=== PATIENT | male | born 1935 | race Caucasian/White ===

== ENCOUNTER → 2022-03-08 13:08 | Outpatient (CLI) | payer MEDICARE, SELFPAY ==
--- NOTE | 2022-03-08 13:16 | DI.CT.S_ITS ---
PROCEDURE: CT CERVICAL SPINE WO CON INDICATIONS: Spinal stenosis cervical and lumbar region TECHNIQUE: Noncontrast 3 mm thick sections acquired from the skull base to the T4 level. Sagittal and coronal reformats were then constructed. For radiation dose reduction, the following was used: automated exposure control, adjustment of mA and/or kV according to patient size. COMPARISON: None. FINDINGS: Image quality: Excellent. Bones: Vertebral body height is maintained. There is degenerative grade 1 anterior spondylolisthesis at C7-T1 and T1-T2. No evidence of vertebral fracture. Disc space narrowing and hypertrophic facet joints are noted throughout the exam particularly in the lower lumbar spine. Mild to moderate central stenosis noted C4-5 and C5-6 There is a healing fracture through the proximal left clavicle with reactive callus formation Soft tissues: Prevertebral soft tissues are normal in thickness. No paravertebral hematomas. No apical pneumothoraces. Pacer wires noted IMPRESSION: 1. Degenerative disc disease and arthropathy results in [id number] central stenosis C5-6 and C6-7 as well as grade 1 anterior spondylolisthesis C7-T1 and T1-2 Approved by: Romeo Zavala M.D. on 03/08/2022 at 17:25
--- NOTE | 2022-03-08 13:16 | DI.CT.S_ITS ---
PROCEDURE: CT LUMBAR SPINE WO CON INDICATIONS: Spinal stenosis cervical and lumbar region TECHNIQUE: Noncontrast 3 mm thick sections acquired from the T12 level to the sacrum. Sagittal and coronal reformats were constructed. For radiation dose reduction, the following was used: automated exposure control. COMPARISON: None. FINDINGS: Image quality: Excellent. Bones: Generalized decreased osseous mineralization present. There compression fractures at L1, L2, L3 and L4. L5 vertebral body height is maintained. Retropulsed fracture fragment at L1 is noted and results in moderate central stenosis. Appropriate alignment T12-L1: Disc space narrowing with circumferential disc bulge results in mild central stenosis. L1-L2: Disc space narrowing with disc bulge and hypertrophic facet joints results in mild central and severe bilateral foraminal stenosis L2-L3: Disc space narrowing with circumferential disc bulge and hypertrophic facet joints results in moderate central stenosis severe bilateral foraminal stenosis L3-L4: Disc space narrowing and circumferential disc bulge with ligamentum flavum laxity results in moderate central stenosis. Moderate right and severe left foraminal stenosis L4-L5: Disc space narrowing with hypertrophic facet joints and circumferential disc bulge results in severe central stenosis. Severe bilateral foraminal stenosis L5-S1: Disc space narrowing and circumferential disc bulge present. Mild central and mild bilateral foraminal stenosis Soft tissues: No retroperitoneal masses or hematomas. Visualized aorta is normal in caliber. IMPRESSION: Multilevel osteopenic compression fractures as above. Retropulsed fracture fragment at L1 results in moderate central stenosis. Multilevel degenerative disc disease and arthropathy results in varying degrees of central and foraminal stenosis including severe central and severe bilateral foraminal stenosis at L4-5 Approved by: Romeo Zavala M.D. on 03/08/2022 at 17:38
== END ==
PROVIDERS: Referring Provider Physical Medicine & Rehabilitation Pain Medicine; Visit Provider Physical Medicine & Rehabilitation Pain Medicine
DX: M48.02 Spinal stenosis, cervical region (principal); M50.322 Other cervical disc degeneration at C5-C6 level; M47.812 Spondylosis without myelopathy or radiculopathy, cervical region; M43.13 Spondylolisthesis, cervicothoracic region; M48.062 Spinal stenosis, lumbar region with neurogenic claudication; M51.36 Other intervertebral disc degeneration, lumbar region; M47.816 Spondylosis without myelopathy or radiculopathy, lumbar region; M84.68XA Pathological fracture in other disease, other site, initial encounter for fracture
CPT/HCPCS: 72125; 72131

== ENCOUNTER 2022-03-25 15:59 | Observation (INO) | payer MEDICARE, SELFPAY ==
[2022-03-25] VITALS (42 sets, daily range): BP systolic 105–153; BP diastolic 75–102; PULSE 84–143; RESP 10–23; TEMP 36.8; O2SAT 94–99; BMI 22.8
--- NOTE | 2022-03-25 16:28 | DI.RAD.S_ITS ---
PROCEDURE: XR CHEST 1V INDICATIONS: chest pain TECHNIQUE: One view of the chest was acquired. COMPARISON: None. FINDINGS: Surgical changes and devices: A pacer device is seen. Lungs and pleura: On this supine examination, no large pneumothorax or large pleural effusions are seen. No focal areas of lung consolidation are seen. Low lung volumes are noted. This causes a crowded appearance to the lung markings and limits evaluation. Mediastinum: Mediastinal contours appear normal. Heart size is normal. Bones and chest wall: Age-appropriate bony degenerative changes are seen. No suspicious bony lesions. Overlying soft tissues appear unremarkable. IMPRESSION: Limited portable chest examination, without a significant cardiopulmonary abnormality identified. Postoperative and degenerative changes are seen. Dictated by: Alber Connor M.D. on 03/25/2022 at 16:07 Approved by: Alber Connor M.D. on 03/25/2022 at 16:08
[2022-03-25] MEDS: ASPIRIN 81 MG CHEW TAB 324 MG PO (16:53)
[2022-03-25 16:55] LABS: Add Manual Diff / Slide Review NO; Basophils Absolute Auto 100 /uL (0-100); Basophils Percent Auto 1.3 % (0-2); Eosinophils Absolute Auto 200 /uL (0-450); Eosinophils Percent Auto 2.1 % (2-4); Hematocrit 45.9 % (41-53); Hemoglobin 15.6 g/dL (13.5-17.5); Lymphocytes Absolute Auto 2300 /uL (1100-4500); Mean Corpuscular HGB Conc 34.1 % (30-36); Mean Corpuscular Hemoglobin 33.9 PG (26-34); Mean Corpuscular Volume 99.4 fL (80-100); Monocytes Absolute Auto 1100 /uL (0-900); Neutrophils Absolute Auto 6500 /uL (1500-7000); Neutrophils Percent Auto 63.6 % (50-75); Platelet Count 218 X10^3/uL (150-400); Red Blood Cell Count 4.62 X10^6/uL (4.5-5.9); Red Cell Distribution Width 14.5 % (11.6-14.8); White Blood Cell Count 10.3 X10^3/uL (4.5-11.0)
[2022-03-25 17:05] LABS: INR 1.5 (0.9-1.3); Prothrombin Time 17.4 SECONDS (10.1-12.7)
--- NOTE | 2022-03-25 17:05 | ED_ITS ---
HPI - Arrhythmia/Palpitations <Jack Ram, DO - Last Filed: 03/26/22 07:51> General Chief Complaint: Arrhythmia/Palpitations Stated Complaint: Back pain Time Seen by Provider: 03/25/22 16:34 Source: patient Mode of arrival: Family Vehicle History of Present Illness HPI narrative: 86-year-old male slightly poor historian with history of AFib on Xarelto for many years, pacemaker placement for sick sinus syndrome, history of ventricular tachycardia presents for evaluation episodes of shortness of breath and fatigue but primarily due to severe midline low back pain. 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 He denies any numbness, tingling or weakness, denies any loss of control of bowel or bladder. He states he has significant pain that is worse with range of motion and improves with rest. He denies any chest pain but does state that he is frequently short of breath but admits that the majority of his day is consume with severe pain Related Data Home Medications Medication Instructions Recorded Confirmed bimatoprost 0.01 % eye drops 1 drp ophthalmic (eye) DAILY 03/25/22 03/25/22 (Evert) bupropion HCl 150 mg tablet,12 hr 150 mg PO BID 03/25/22 03/25/22 sustained-release diltiazem HCl 240 mg 240 mg PO DAILY 03/25/22 03/25/22 capsule,extended release 24 hr dorzolamide 22.3 mg-timolol 6.8 1 drp ophthalmic (eye) DAILY 03/25/22 03/25/22 mg/mL eye drops finasteride 5 mg tablet 5 mg PO DAILY 03/25/22 03/25/22 omeprazole 20 mg capsule,delayed 20 mg PO DAILY 03/25/22 03/25/22 release rivaroxaban 20 mg tablet (Xarelto) 20 mg PO QPM 03/25/22 03/25/22 tamsulosin 0.4 mg capsule 0.4 mg PO BEDTIME 03/25/22 03/25/22 triamcinolone acetonide 0.1 % 1 applic topical DAILY PRN Dry Skin 03/25/22 03/25/22 topical ointment vitamin B complex (B 1 tab PO DAILY 03/25/22 03/25/22 Complex-Vitamin B12 tablet) Allergies Allergy/AdvReac Type Severity Reaction Status Date / Time No Known Drug Allergies Allergy Verified 03/25/22 21:16 Review of Systems <Jack Ram DO - Last Filed: 03/26/22 07:51> Review of Systems Narrative: GENERAL: Denies chills, fatigue, malaise, fever, sweats. HEENT: Denies sinus pain, ear pain, sore throat, difficulty swallowing, dizziness. RESPIRATORY: See HPI CARDIOVASCULAR: See HPI GASTROINTESTINAL: Denies nausea, vomiting, abdominal pain, diarrhea, constipation, melena. : Denies dysuria, frequency, incontinence, hematuria, urinary retention. MUSCULOSKELETAL: See HPI SKIN: Denies rash, skin lesions, or other NEUROLOGIC: See HPI PSYCHIATRIC: No concerning psychosocial issues. 12 point review of systems is negative except for those stated above Patient History <Jack Ram DO - Last Filed: 03/26/22 07:51> Medical History (Updated 03/26/22 @ 04:00 by MP Madrigal) BPH (benign prostatic hyperplasia) Chronic anticoagulation Osteoporosis Surgical History (Updated 03/26/22 @ 04:00 by MP Madrigal) History of permanent cardiac pacemaker placement Family History Mother Cancer Father No problems noted. Social History household members: none Smoking Status: Never smoker alcohol intake: current Smoking Status: Never smoker alcohol intake frequency: holidays/special occasions only Exam <DO Tanner Coburn Last Filed: 03/26/22 07:51> Narrative Exam Narrative: GENERAL: [86] year old patient appears stated age. Well-developed patient, in obvious distress. Complaining of low back pain HEAD: Atraumatic. Normocephalic. EYES: Pupils equal round and reactive. Extraocular motions intact. No scleral icterus. No injection or drainage. ENT: Nose without bleeding, purulent drainage. Throat without erythema, tonsillar hypertrophy or exudate. Airway patent. NECK: Trachea midline. Non tender CARDIOVASCULAR: Tachycardic and irregular rhythm without murmurs, gallops, or rubs. RESPIRATORY: Clear to auscultation. Breath sounds equal bilaterally. No wheezes, rales, or rhonchi. GASTROINTESTINAL: Abdomen soft, non-tender, nondistended. EXTREMITIES: No edema or joint tenderness. BACK: Severe midline, tenderness significantly worse with motion NEURO: AOx3. SKIN: No rash or erythema of visible areas Initial Vital Signs Initial Vital Signs: Vital Signs Temperature 98.2 F 03/25/22 16:14 Pulse Rate 135 H 03/25/22 16:14 Respiratory Rate 19 03/25/22 16:14 Blood Pressure 143/81 H 03/25/22 16:14 Pulse Oximetry 97 03/25/22 16:14 Oxygen Delivery Method 03/25/22 16:14 <Anjelica Mustafa MD - Last Filed: 03/25/22 21:17> Initial Vital Signs Initial Vital Signs: Vital Signs Temperature 98.2 F 03/25/22 16:14 Pulse Rate 135 H 03/25/22 16:14 Respiratory Rate 19 03/25/22 16:14 Blood Pressure 143/81 H 03/25/22 16:14 Pulse Oximetry 97 03/25/22 16:14 Oxygen Delivery Method 03/25/22 16:14 Procedures <Jack Ram DO - Last Filed: 03/26/22 07:51> Cardioversion Consent Signed: Yes Indication: rapid atrial fib Stability: Stable Number of attempts (shocks): 1 Joules used: 120 Cardiac rhythm post-cardioversion: NSR Procedural Sedation Consent signed: Yes Time out performed: Yes Indication: cardioversion ASA Class: III Mallampati Airway Classification: Class II Preparation: velvet weaver applied, pulse oximeter, capnometry used, supplemental O2 applied, suction/airway equipment at bedside and IV secured IV Propofol dose (mg): 40 Intraservice time/total sedation time (min): 10 ED Sedation Level: Moderate (Concious) Patient Tolerated Procedure: Well Complications: none Course <Jack Ram DO - Last Filed: 03/26/22 07:51> Orders Ordered: Acetaminophen (Acetaminophen 325 Mg Tablet) 650 mg PO Q6H PRN PRN Reason: Fever/Mild Pain (1-3) Bupropion HCl (Bupropion Sr 150 Mg Tab) 150 mg PO BID HENRY Calcium Carbonate (Calcium Carbonate 500 Mg Tab) 1,000 mg PO Q4HR PRN PRN Reason: Dyspepsia Dextrose (Dextrose 50 % In Water 25 Gm/50 Ml Syringe) 25 gm IV PRN PRN PRN Reason: Hypoglycemia Diltiazem HCl (Diltiazem Cd 240 Mg Cap) 240 mg PO DAILY HENRY Finasteride (Finasteride 5 Mg Tablet) 5 mg PO DAILY HENRY Hydromorphone HCl (Hydromorphone 0.5 Mg Inj) 0.5 mg IV Q4H PRN PRN Reason: Pain, Moderate (4-6) Naloxone HCl (Naloxone 0.4 Mg/Ml Vial) 0.2 mg IV Q2MIN PRN PRN Reason: Opiate Reversal Ondansetron HCl (Ondansetron 4 Mg/2 Ml Inj) 4 mg IV Q8HR PRN PRN Reason: Nausea And Vomiting Oxycodone HCl (Oxycodone Ir 10 Mg Tablet) 10 mg PO Q3H PRN PRN Reason: Pain, Severe (7-10) Sennosides (Sennosides 8.6 Mg Tablet) 17.2 mg PO BEDTIME [facility] Last Admin: 03/25/22 23:25 Dose: 17.2 mg Documented By: [facility] Discontinued Medications Aspirin (Aspirin 81 Mg Chew Tab) 324 mg PO NOW ONE Stop: 03/25/22 16:29 Last Admin: 03/25/22 16:53 Dose: 324 mg Documented By: RL Hydromorphone HCl (Hydromorphone 0.5 Mg Inj) 0.5 mg IV NOW ONE Stop: 03/25/22 20:13 Last Admin: 03/25/22 21:19 Dose: 0.5 mg Documented By: AT Amiodarone HCl/Dextrose (Nexterone) 150 mg in 100 mls @ 600 mls/hr IV NOW ONE; Protocol Stop: 03/25/22 18:31 Last Admin: 03/25/22 21:58 Dose: Not Given Documented By: AT Oxycodone/Acetaminophen (Oxycodone/Acetaminophen 5/325 Tablet) 2 tab PO NOW ONE Stop: 03/25/22 21:10 Last Admin: 03/25/22 21:59 Dose: 2 tab Documented By: AT Potassium Chloride (Potassium Chloride 20 Meq Tab) 40 meq PO NOW ONE Stop: 03/26/22 04:23 Last Admin: 03/26/22 04:35 Dose: 40 meq Documented By: DAVID Propofol (Propofol 200 Mg/20 Ml Vial) 70 mg 1 mg/kg (70 mg) IV NOW ONE Stop: 03/25/22 17:28 Last Admin: 03/25/22 17:42 Dose: 40 mg Documented By: RL Reevaluation(s) Reevaluation #1: Patient converted as noted above, however 2 episodes of nonsustained V-tach in the aftermath measuring 8 and 10 beats a piece, patient did not have any palpitations, chest pain or shortness of breath this. Consultations Consultation #1: discussed with Dr. Simon (lead front desk agent Cardio), no indication for amio at this time, consult with Cardio Vital Signs Vital signs: Vital Signs - 8 hr 03/25/22 16:14 03/25/22 16:51 03/25/22 16:52 Temperature 98.2 F Pulse Rate 135 H 130 H Respiratory Rate 19 22 Blood Pressure 143/81 H 128/82 Pulse Oximetry 97 97 Oxygen Delivery Method Room Air 03/25/22 16:52 03/25/22 17:00 03/25/22 17:00 Temperature Pulse Rate 136 H 131 H Respiratory Rate 15 16 Blood Pressure 125/90 Pulse Oximetry 97 97 Oxygen Delivery Method 03/25/22 17:16 03/25/22 17:16 03/25/22 17:20 Temperature Pulse Rate 133 H Respiratory Rate 11 L Blood Pressure 131/85 153/82 H Pulse Oximetry 96 Oxygen Delivery Method 03/25/22 17:20 03/25/22 17:30 03/25/22 17:31 Temperature Pulse Rate 138 H 140 H Respiratory Rate 20 13 Blood Pressure 134/102 H Pulse Oximetry 97 97 Oxygen Delivery Method 03/25/22 17:31 03/25/22 17:35 03/25/22 17:35 Temperature Pulse Rate 143 H 136 H Respiratory Rate 13 10 L Blood Pressure 119/94 H Pulse Oximetry 96 95 Oxygen Delivery Method 03/25/22 17:40 03/25/22 17:40 03/25/22 17:20 Temperature Pulse Rate 135 H 118 H Respiratory Rate 18 12 Blood Pressure 105/80 Pulse Oximetry 96 Oxygen Delivery Method 03/25/22 17:45 03/25/22 17:45 03/25/22 17:51 Temperature Pulse Rate 86 Respiratory Rate 18 Blood Pressure 129/84 117/83 Pulse Oximetry 94 Oxygen Delivery Method 03/25/22 17:51 03/25/22 17:55 03/25/22 17:55 Temperature Pulse Rate 90 85 Respiratory Rate 23 15 Blood Pressure 120/82 Pulse Oximetry 95 95 Oxygen Delivery Method 03/25/22 18:00 03/25/22 18:00 03/25/22 18:05 Temperature Pulse Rate 87 84 Respiratory Rate 15 13 Blood Pressure 131/75 Pulse Oximetry 96 95 Oxygen Delivery Method 03/25/22 18:05 03/25/22 18:10 03/25/22 18:10 Temperature Pulse Rate 85 Respiratory Rate 14 Blood Pressure 123/79 121/83 Pulse Oximetry 95 Oxygen Delivery Method 03/25/22 18:15 03/25/22 18:15 03/25/22 18:20 Temperature Pulse Rate 86 Respiratory Rate 15 Blood Pressure 122/83 128/79 Pulse Oximetry 95 Oxygen Delivery Method 03/25/22 18:20 03/25/22 18:25 03/25/22 18:25 Temperature Pulse Rate 85 86 Respiratory Rate 16 17 Blood Pressure 118/81 Pulse Oximetry 95 96 Oxygen Delivery Method 03/25/22 18:30 03/25/22 18:30 03/25/22 19:00 Temperature Pulse Rate 87 89 Respiratory Rate 14 14 Blood Pressure 134/87 Pulse Oximetry 96 97 Oxygen Delivery Method 03/25/22 19:07 03/25/22 19:07 03/25/22 19:10 Temperature Pulse Rate 90 Respiratory Rate 14 Blood Pressure 121/81 135/82 Pulse Oximetry 98 Oxygen Delivery Method 03/25/22 19:10 03/25/22 19:15 03/25/22 19:15 Temperature Pulse Rate 88 89 Respiratory Rate 14 21 Blood Pressure 148/93 H Pulse Oximetry 98 99 Oxygen Delivery Method 03/25/22 19:21 03/25/22 19:21 03/25/22 19:25 Temperature Pulse Rate 91 H Respiratory Rate 17 Blood Pressure 141/93 H 137/96 H Pulse Oximetry 98 Oxygen Delivery Method 03/25/22 19:25 03/25/22 19:30 03/25/22 19:30 Temperature Pulse Rate 90 91 H Respiratory Rate 21 11 L Blood Pressure 140/92 H Pulse Oximetry 98 98 Oxygen Delivery Method 03/25/22 19:35 03/25/22 19:35 03/25/22 19:40 Temperature Pulse Rate 91 H 103 H Respiratory Rate 15 22 Blood Pressure 136/92 H Pulse Oximetry 98 98 Oxygen Delivery Method 03/25/22 19:40 03/25/22 19:45 03/25/22 19:45 Temperature Pulse Rate 92 H Respiratory Rate 17 Blood Pressure 150/97 H 152/86 H Pulse Oximetry 99 Oxygen Delivery Method 03/25/22 19:50 03/25/22 19:50 03/25/22 19:55 Temperature Pulse Rate 90 Respiratory Rate 16 Blood Pressure 150/90 H 151/97 H Pulse Oximetry 99 Oxygen Delivery Method 03/25/22 19:55 03/25/22 20:00 03/25/22 20:00 Temperature Pulse Rate 92 H 90 Respiratory Rate 11 L 17 Blood Pressure 148/92 H Pulse Oximetry 98 99 Oxygen Delivery Method 03/25/22 20:06 03/25/22 20:06 03/25/22 20:10 Temperature Pulse Rate 93 H Respiratory Rate 20 Blood Pressure 125/81 127/75 Pulse Oximetry 99 Oxygen Delivery Method 03/25/22 20:10 03/25/22 20:15 03/25/22 20:15 Temperature Pulse Rate 92 H 90 Respiratory Rate 15 15 Blood Pressure 134/82 Pulse Oximetry 99 98 Oxygen Delivery Method 03/25/22 20:20 03/25/22 20:20 03/25/22 20:30 Temperature Pulse Rate 91 H Respiratory Rate 20 Blood Pressure 132/84 136/88 Pulse Oximetry 98 Oxygen Delivery Method 03/25/22 20:30 03/25/22 20:45 03/25/22 20:45 Temperature Pulse Rate 91 H 90 Respiratory Rate 17 15 Blood Pressure 140/80 Pulse Oximetry 98 98 Oxygen Delivery Method <Anjelica Mustafa MD - Last Filed: 03/25/22 21:17> Orders Ordered: Acetaminophen (Acetaminophen 325 Mg Tablet) 650 mg PO Q6H PRN PRN Reason: Fever/Mild Pain (1-3) Bupropion HCl (Bupropion Sr 150 Mg Tab) 150 mg PO BID HENRY Calcium Carbonate (Calcium Carbonate 500 Mg Tab) 1,000 mg PO Q4HR PRN PRN Reason: Dyspepsia Dextrose (Dextrose 50 % In Water 25 Gm/50 Ml Syringe) 25 gm IV PRN PRN PRN Reason: Hypoglycemia Diltiazem HCl (Diltiazem Cd 240 Mg Cap) 240 mg PO DAILY HENRY Finasteride (Finasteride 5 Mg Tablet) 5 mg PO DAILY HENRY Hydromorphone HCl (Hydromorphone 0.5 Mg Inj) 0.5 mg IV Q4H PRN PRN Reason: Pain, Moderate (4-6) Naloxone HCl (Naloxone 0.4 Mg/Ml Vial) 0.2 mg IV Q2MIN PRN PRN Reason: Opiate Reversal Ondansetron HCl (Ondansetron 4 Mg/2 Ml Inj) 4 mg IV Q8HR PRN PRN Reason: Nausea And Vomiting Oxycodone HCl (Oxycodone Ir 10 Mg Tablet) 10 mg PO Q3H PRN PRN Reason: Pain, Severe (7-10) Sennosides (Sennosides 8.6 Mg Tablet) 17.2 mg PO BEDTIME HENRY Last Admin: 03/25/22 23:25 Dose: 17.2 mg Documented By: [facility] Discontinued Medications Aspirin (Aspirin 81 Mg Chew Tab) 324 mg PO NOW ONE Stop: 03/25/22 16:29 Last Admin: 03/25/22 16:53 Dose: 324 mg Documented By: RL Hydromorphone HCl (Hydromorphone 0.5 Mg Inj) 0.5 mg IV NOW ONE Stop: 03/25/22 20:13 Last Admin: 03/25/22 21:19 Dose: 0.5 mg Documented By: AT Amiodarone HCl/Dextrose (Nexterone) 150 mg in 100 mls @ 600 mls/hr IV NOW ONE; Protocol Stop: 03/25/22 18:31 Last Admin: 03/25/22 21:58 Dose: Not Given Documented By: AT Oxycodone/Acetaminophen (Oxycodone/Acetaminophen 5/325 Tablet) 2 tab PO NOW ONE Stop: 03/25/22 21:10 Last Admin: 03/25/22 21:59 Dose: 2 tab Documented By: AT Potassium Chloride (Potassium Chloride 20 Meq Tab) 40 meq PO NOW ONE Stop: 03/26/22 04:23 Last Admin: 03/26/22 04:35 Dose: 40 meq Documented By: DAVID Propofol (Propofol 200 Mg/20 Ml Vial) 70 mg 1 mg/kg (70 mg) IV NOW ONE Stop: 03/25/22 17:28 Last Admin: 03/25/22 17:42 Dose: 40 mg Documented By: RL Vital Signs Vital signs: Vital Signs - 8 hr 03/25/22 16:14 03/25/22 16:51 03/25/22 16:52 Temperature 98.2 F Pulse Rate 135 H 130 H Respiratory Rate 19 22 Blood Pressure 143/81 H 128/82 Pulse Oximetry 97 97 Oxygen Delivery Method Room Air 03/25/22 16:52 03/25/22 17:00 03/25/22 17:00 Temperature Pulse Rate 136 H 131 H Respiratory Rate 15 16 Blood Pressure 125/90 Pulse Oximetry 97 97 Oxygen Delivery Method 03/25/22 17:16 03/25/22 17:16 03/25/22 17:20 Temperature Pulse Rate 133 H Respiratory Rate 11 L Blood Pressure 131/85 153/82 H Pulse Oximetry 96 Oxygen Delivery Method 03/25/22 17:20 03/25/22 17:30 03/25/22 17:31 Temperature Pulse Rate 138 H 140 H Respiratory Rate 20 13 Blood Pressure 134/102 H Pulse Oximetry 97 97 Oxygen Delivery Method 03/25/22 17:31 03/25/22 17:35 03/25/22 17:35 Temperature Pulse Rate 143 H 136 H Respiratory Rate 13 10 L Blood Pressure 119/94 H Pulse Oximetry 96 95 Oxygen Delivery Method 03/25/22 17:40 03/25/22 17:40 03/25/22 17:20 Temperature Pulse Rate 135 H 118 H Respiratory Rate 18 12 Blood Pressure 105/80 Pulse Oximetry 96 Oxygen Delivery Method 03/25/22 17:45 03/25/22 17:45 03/25/22 17:51 Temperature Pulse Rate 86 Respiratory Rate 18 Blood Pressure 129/84 117/83 Pulse Oximetry 94 Oxygen Delivery Method 03/25/22 17:51 03/25/22 17:55 03/25/22 17:55 Temperature Pulse Rate 90 85 Respiratory Rate 23 15 Blood Pressure 120/82 Pulse Oximetry 95 95 Oxygen Delivery Method 03/25/22 18:00 03/25/22 18:00 03/25/22 18:05 Temperature Pulse Rate 87 84 Respiratory Rate 15 13 Blood Pressure 131/75 Pulse Oximetry 96 95 Oxygen Delivery Method 03/25/22 18:05 03/25/22 18:10 03/25/22 18:10 Temperature Pulse Rate 85 Respiratory Rate 14 Blood Pressure 123/79 121/83 Pulse Oximetry 95 Oxygen Delivery Method 03/25/22 18:15 03/25/22 18:15 03/25/22 18:20 Temperature Pulse Rate 86 Respiratory Rate 15 Blood Pressure 122/83 128/79 Pulse Oximetry 95 Oxygen Delivery Method 03/25/22 18:20 03/25/22 18:25 03/25/22 18:25 Temperature Pulse Rate 85 86 Respiratory Rate 16 17 Blood Pressure 118/81 Pulse Oximetry 95 96 Oxygen Delivery Method 03/25/22 18:30 03/25/22 18:30 03/25/22 19:00 Temperature Pulse Rate 87 89 Respiratory Rate 14 14 Blood Pressure 134/87 Pulse Oximetry 96 97 Oxygen Delivery Method 03/25/22 19:07 03/25/22 19:07 03/25/22 19:10 Temperature Pulse Rate 90 Respiratory Rate 14 Blood Pressure 121/81 135/82 Pulse Oximetry 98 Oxygen Delivery Method 03/25/22 19:10 03/25/22 19:15 03/25/22 19:15 Temperature Pulse Rate 88 89 Respiratory Rate 14 21 Blood Pressure 148/93 H Pulse Oximetry 98 99 Oxygen Delivery Method 03/25/22 19:21 03/25/22 19:21 03/25/22 19:25 Temperature Pulse Rate 91 H Respiratory Rate 17 Blood Pressure 141/93 H 137/96 H Pulse Oximetry 98 Oxygen Delivery Method 03/25/22 19:25 03/25/22 19:30 03/25/22 19:30 Temperature Pulse Rate 90 91 H Respiratory Rate 21 11 L Blood Pressure 140/92 H Pulse Oximetry 98 98 Oxygen Delivery Method 03/25/22 19:35 03/25/22 19:35 03/25/22 19:40 Temperature Pulse Rate 91 H 103 H Respiratory Rate 15 22 Blood Pressure 136/92 H Pulse Oximetry 98 98 Oxygen Delivery Method 03/25/22 19:40 03/25/22 19:45 03/25/22 19:45 Temperature Pulse Rate 92 H Respiratory Rate 17 Blood Pressure 150/97 H 152/86 H Pulse Oximetry 99 Oxygen Delivery Method 03/25/22 19:50 03/25/22 19:50 03/25/22 19:55 Temperature Pulse Rate 90 Respiratory Rate 16 Blood Pressure 150/90 H 151/97 H Pulse Oximetry 99 Oxygen Delivery Method 03/25/22 19:55 03/25/22 20:00 03/25/22 20:00 Temperature Pulse Rate 92 H 90 Respiratory Rate 11 L 17 Blood Pressure 148/92 H Pulse Oximetry 98 99 Oxygen Delivery Method 03/25/22 20:06 03/25/22 20:06 03/25/22 20:10 Temperature Pulse Rate 93 H Respiratory Rate 20 Blood Pressure 125/81 127/75 Pulse Oximetry 99 Oxygen Delivery Method 03/25/22 20:10 03/25/22 20:15 03/25/22 20:15 Temperature Pulse Rate 92 H 90 Respiratory Rate 15 15 Blood Pressure 134/82 Pulse Oximetry 99 98 Oxygen Delivery Method 03/25/22 20:20 03/25/22 20:20 03/25/22 20:30 Temperature Pulse Rate 91 H Respiratory Rate 20 Blood Pressure 132/84 136/88 Pulse Oximetry 98 Oxygen Delivery Method 03/25/22 20:30 03/25/22 20:45 03/25/22 20:45 Temperature Pulse Rate 91 H 90 Respiratory Rate 17 15 Blood Pressure 140/80 Pulse Oximetry 98 98 Oxygen Delivery Method MDM - Arrhythmia/Palpitations <Jack Ram DO - Last Filed: 03/26/22 07:51> Lab Data Result diagrams: 03/26/22 03:45 03/26/22 03:45 Labs: Lab Results 03/25/22 03/25/22 03/25/22 Range/Units 16:40 16:40 16:40 WBC 10.3 (4.5-11.0) X10^3/uL RBC 4.62 (4.5-5.9) X10^6/uL Hgb 15.6 (13.5-17.5) g/dL Hct 45.9 (41-53) % MCV 99.4 (80-100) fL MCH 33.9 (26-34) PG MCHC 34.1 (30-36) % RDW 14.5 (11.6-14.8) % Plt Count 218 (150-400) X10^3/uL Neut % (Auto) 63.6 (50-75) % Lymph % (Auto) 22.0 L (25-40) % Waller % (Auto) 11.0 (3-14) % Eos % (Auto) 2.1 (2-4) % Baso % (Auto) 1.3 (0-2) % Neut # (Auto) 6500 (8274-3600) /uL Lymph # (Auto) 2300 (6880-3095) /uL Waller # (Auto) 1100 H (0-900) /uL Eos # (Auto) 200 (0-450) /uL Baso # (Auto) 100 (0-100) /uL PT 17.4 H (10.1-12.7) SECONDS INR 1.5 H (0.9-1.3) APTT 36 (26-36) SECONDS Sodium 139 (137-145) mmol/L Potassium 3.8 (3.4-5.1) mmol/L Chloride 106 (98-107) mmol/L Carbon Dioxide 23 (22-32) mmol/L BUN 9 (9-20) mg/dL Creatinine 0.80 (0.66-1.25) mg/dL Estimated GFR > 60 (>60) mL/min BUN/Creatinine Ratio 11.3 (6-22) Glucose 89 (80-110) mg/dL Hemoglobin A1c (4.0-6.0) % Lactate (0.7-2.1) mmol/L Calcium 9.0 (8.4-10.2) mg/dL Magnesium 1.9 (1.6-2.3) mg/dL Total Bilirubin 1.1 (0.2-1.3) mg/dL AST 32 (17-59) IU/L ALT 27 (<50) IU/L Alkaline Phosphatase 108 (38-126) U/L Total Creatine Kinase < 20 L (55-170) U/L CK-MB (CK-2) TNP CK-MB (CK-2) Rel Index TNP Troponin I < 0.012 (0.01-0.034) ng/mL NT-Pro-B Natriuret Pep (<450) pg/mL Total Protein 7.9 (6.3-8.2) g/dL Albumin 3.7 (3.5-5.0) g/dL Globulin 4.2 H (1.7-4.1) g/dL Albumin/Globulin Ratio 0.9 L (1.0-2.8) Lipase 169 (23-300) U/L TSH (0.47-4.68) uIU/mL Free T4 (0.78-2.19) ng/dL Ethyl Alcohol ( - 10) mg/dL SARS-CoV-2 (PCR) (Negative) 03/25/22 03/25/22 03/25/22 Range/Units 16:40 16:55 18:20 WBC (4.5-11.0) X10^3/uL RBC (4.5-5.9) X10^6/uL Hgb (13.5-17.5) g/dL Hct (41-53) % MCV (80-100) fL MCH (26-34) PG MCHC (30-36) % RDW (11.6-14.8) % Plt Count (150-400) X10^3/uL Neut % (Auto) (50-75) % Lymph % (Auto) (25-40) % Waller % (Auto) (3-14) % Eos % (Auto) (2-4) % Baso % (Auto) (0-2) % Neut # (Auto) (4889-1278) /uL Lymph # (Auto) (7352-4778) /uL Waller # (Auto) (0-900) /uL Eos # (Auto) (0-450) /uL Baso # (Auto) (0-100) /uL PT (10.1-12.7) SECONDS INR (0.9-1.3) APTT (26-36) SECONDS Sodium (137-145) mmol/L Potassium (3.4-5.1) mmol/L Chloride (98-107) mmol/L Carbon Dioxide (22-32) mmol/L BUN (9-20) mg/dL Creatinine (0.66-1.25) mg/dL Estimated GFR (>60) mL/min BUN/Creatinine Ratio (6-22) Glucose (80-110) mg/dL Hemoglobin A1c 5.1 (4.0-6.0) % Lactate (0.7-2.1) mmol/L Calcium (8.4-10.2) mg/dL Magnesium (1.6-2.3) mg/dL Total Bilirubin (0.2-1.3) mg/dL AST (17-59) IU/L ALT (<50) IU/L Alkaline Phosphatase (38-126) U/L Total Creatine Kinase (55-170) U/L CK-MB (CK-2) CK-MB (CK-2) Rel Index Troponin I (0.01-0.034) ng/mL NT-Pro-B Natriuret Pep (<450) pg/mL Total Protein (6.3-8.2) g/dL Albumin (3.5-5.0) g/dL Globulin (1.7-4.1) g/dL Albumin/Globulin Ratio (1.0-2.8) Lipase (23-300) U/L TSH (0.47-4.68) uIU/mL Free T4 (0.78-2.19) ng/dL Ethyl Alcohol < 10 ( - 10) mg/dL SARS-CoV-2 (PCR) Negative (Negative) 03/25/22 03/25/22 03/25/22 Range/Units 18:20 18:20 18:20 WBC (4.5-11.0) X10^3/uL RBC (4.5-5.9) X10^6/uL Hgb (13.5-17.5) g/dL Hct (41-53) % MCV (80-100) fL MCH (26-34) PG MCHC (30-36) % RDW (11.6-14.8) % Plt Count (150-400) X10^3/uL Neut % (Auto) (50-75) % Lymph % (Auto) (25-40) % Waller % (Auto) (3-14) % Eos % (Auto) (2-4) % Baso % (Auto) (0-2) % Neut # (Auto) (1402-0171) /uL Lymph # (Auto) (7840-1748) /uL Waller # (Auto) (0-900) /uL Eos # (Auto) (0-450) /uL Baso # (Auto) (0-100) /uL PT (10.1-12.7) SECONDS INR (0.9-1.3) APTT (26-36) SECONDS Sodium (137-145) mmol/L Potassium (3.4-5.1) mmol/L Chloride (98-107) mmol/L Carbon Dioxide (22-32) mmol/L BUN (9-20) mg/dL Creatinine (0.66-1.25) mg/dL Estimated GFR (>60) mL/min BUN/Creatinine Ratio (6-22) Glucose (80-110) mg/dL Hemoglobin A1c (4.0-6.0) % Lactate 0.9 (0.7-2.1) mmol/L Calcium (8.4-10.2) mg/dL Magnesium (1.6-2.3) mg/dL Total Bilirubin (0.2-1.3) mg/dL AST (17-59) IU/L ALT (<50) IU/L Alkaline Phosphatase (38-126) U/L Total Creatine Kinase (55-170) U/L CK-MB (CK-2) CK-MB (CK-2) Rel Index Troponin I (0.01-0.034) ng/mL NT-Pro-B Natriuret Pep 3110 H (<450) pg/mL Total Protein (6.3-8.2) g/dL Albumin (3.5-5.0) g/dL Globulin (1.7-4.1) g/dL Albumin/Globulin Ratio (1.0-2.8) Lipase (23-300) U/L TSH 8.95 H (0.47-4.68) uIU/mL Free T4 1.09 (0.78-2.19) ng/dL Ethyl Alcohol ( - 10) mg/dL SARS-CoV-2 (PCR) (Negative) <Anjelica Mustafa MD - Last Filed: 03/25/22 21:17> Lab Data Labs: Lab Results 03/25/22 03/25/22 03/25/22 Range/Units 16:40 16:40 16:40 WBC 10.3 (4.5-11.0) X10^3/uL RBC 4.62 (4.5-5.9) X10^6/uL Hgb 15.6 (13.5-17.5) g/dL Hct 45.9 (41-53) % MCV 99.4 (80-100) fL MCH 33.9 (26-34) PG MCHC 34.1 (30-36) % RDW 14.5 (11.6-14.8) % Plt Count 218 (150-400) X10^3/uL Neut % (Auto) 63.6 (50-75) % Lymph % (Auto) 22.0 L (25-40) % Waller % (Auto) 11.0 (3-14) % Eos % (Auto) 2.1 (2-4) % Baso % (Auto) 1.3 (0-2) % Neut # (Auto) 6500 (4254-2814) /uL Lymph # (Auto) 2300 (1320-3135) /uL Waller # (Auto) 1100 H (0-900) /uL Eos # (Auto) 200 (0-450) /uL Baso # (Auto) 100 (0-100) /uL PT 17.4 H (10.1-12.7) SECONDS INR 1.5 H (0.9-1.3) APTT 36 (26-36) SECONDS Sodium 139 (137-145) mmol/L Potassium 3.8 (3.4-5.1) mmol/L Chloride 106 (98-107) mmol/L Carbon Dioxide 23 (22-32) mmol/L BUN 9 (9-20) mg/dL Creatinine 0.80 (0.66-1.25) mg/dL Estimated GFR > 60 (>60) mL/min BUN/Creatinine Ratio 11.3 (6-22) Glucose 89 (80-110) mg/dL Hemoglobin A1c (4.0-6.0) % Lactate (0.7-2.1) mmol/L Calcium 9.0 (8.4-10.2) mg/dL Magnesium 1.9 (1.6-2.3) mg/dL Total Bilirubin 1.1 (0.2-1.3) mg/dL AST 32 (17-59) IU/L ALT 27 (<50) IU/L Alkaline Phosphatase 108 (38-126) U/L Total Creatine Kinase < 20 L (55-170) U/L CK-MB (CK-2) TNP CK-MB (CK-2) Rel Index TNP Troponin I < 0.012 (0.01-0.034) ng/mL NT-Pro-B Natriuret Pep (<450) pg/mL Total Protein 7.9 (6.3-8.2) g/dL Albumin 3.7 (3.5-5.0) g/dL Globulin 4.2 H (1.7-4.1) g/dL Albumin/Globulin Ratio 0.9 L (1.0-2.8) Lipase 169 (23-300) U/L TSH (0.47-4.68) uIU/mL Free T4 (0.78-2.19) ng/dL Ethyl Alcohol ( - 10) mg/dL SARS-CoV-2 (PCR) (Negative) 03/25/22 03/25/22 03/25/22 Range/Units 16:40 16:55 18:20 WBC (4.5-11.0) X10^3/uL RBC (4.5-5.9) X10^6/uL Hgb (13.5-17.5) g/dL Hct (41-53) % MCV (80-100) fL MCH (26-34) PG MCHC (30-36) % RDW (11.6-14.8) % Plt Count (150-400) X10^3/uL Neut % (Auto) (50-75) % Lymph % (Auto) (25-40) % Waller % (Auto) (3-14) % Eos % (Auto) (2-4) % Baso % (Auto) (0-2) % Neut # (Auto) (7345-9912) /uL Lymph # (Auto) (2163-7262) /uL Waller # (Auto) (0-900) /uL Eos # (Auto) (0-450) /uL Baso # (Auto) (0-100) /uL PT (10.1-12.7) SECONDS INR (0.9-1.3) APTT (26-36) SECONDS Sodium (137-145) mmol/L Potassium (3.4-5.1) mmol/L Chloride (98-107) mmol/L Carbon Dioxide (22-32) mmol/L BUN (9-20) mg/dL Creatinine (0.66-1.25) mg/dL Estimated GFR (>60) mL/min BUN/Creatinine Ratio (6-22) Glucose (80-110) mg/dL Hemoglobin A1c 5.1 (4.0-6.0) % Lactate (0.7-2.1) mmol/L Calcium (8.4-10.2) mg/dL Magnesium (1.6-2.3) mg/dL Total Bilirubin (0.2-1.3) mg/dL AST (17-59) IU/L ALT (<50) IU/L Alkaline Phosphatase (38-126) U/L Total Creatine Kinase (55-170) U/L CK-MB (CK-2) CK-MB (CK-2) Rel Index Troponin I (0.01-0.034) ng/mL NT-Pro-B Natriuret Pep (<450) pg/mL Total Protein (6.3-8.2) g/dL Albumin (3.5-5.0) g/dL Globulin (1.7-4.1) g/dL Albumin/Globulin Ratio (1.0-2.8) Lipase (23-300) U/L TSH (0.47-4.68) uIU/mL Free T4 (0.78-2.19) ng/dL Ethyl Alcohol < 10 ( - 10) mg/dL SARS-CoV-2 (PCR) Negative (Negative) 03/25/22 03/25/22 03/25/22 Range/Units 18:20 18:20 18:20 WBC (4.5-11.0) X10^3/uL RBC (4.5-5.9) X10^6/uL Hgb (13.5-17.5) g/dL Hct (41-53) % MCV (80-100) fL MCH (26-34) PG MCHC (30-36) % RDW (11.6-14.8) % Plt Count (150-400) X10^3/uL Neut % (Auto) (50-75) % Lymph % (Auto) (25-40) % Waller % (Auto) (3-14) % Eos % (Auto) (2-4) % Baso % (Auto) (0-2) % Neut # (Auto) (7622-3637) /uL Lymph # (Auto) (5286-8387) /uL Waller # (Auto) (0-900) /uL Eos # (Auto) (0-450) /uL Baso # (Auto) (0-100) /uL PT (10.1-12.7) SECONDS INR (0.9-1.3) APTT (26-36) SECONDS Sodium (137-145) mmol/L Potassium (3.4-5.1) mmol/L Chloride (98-107) mmol/L Carbon Dioxide (22-32) mmol/L BUN (9-20) mg/dL Creatinine (0.66-1.25) mg/dL Estimated GFR (>60) mL/min BUN/Creatinine Ratio (6-22) Glucose (80-110) mg/dL Hemoglobin A1c (4.0-6.0) % Lactate 0.9 (0.7-2.1) mmol/L Calcium (8.4-10.2) mg/dL Magnesium (1.6-2.3) mg/dL Total Bilirubin (0.2-1.3) mg/dL AST (17-59) IU/L ALT (<50) IU/L Alkaline Phosphatase (38-126) U/L Total Creatine Kinase (55-170) U/L CK-MB (CK-2) CK-MB (CK-2) Rel Index Troponin I (0.01-0.034) ng/mL NT-Pro-B Natriuret Pep 3110 H (<450) pg/mL Total Protein (6.3-8.2) g/dL Albumin (3.5-5.0) g/dL Globulin (1.7-4.1) g/dL Albumin/Globulin Ratio (1.0-2.8) Lipase (23-300) U/L TSH 8.95 H (0.47-4.68) uIU/mL Free T4 1.09 (0.78-2.19) ng/dL Ethyl Alcohol ( - 10) mg/dL SARS-CoV-2 (PCR) (Negative) ECG Data Interpretation: 1635 Atrial fibrillation with rapid ventricular response at 136 Post cardioversion sinus rhythm with sinus arrhythmia at a rate of [address] T wave changes Occasional tele episodes of wide complex beats that are paste and asymptomatic Treatment and disposition Social Determinants of Health that impact treatment or disposition: age, inability to function at home due to pain. Has a friend, Dev Connors [phone] who has been helping. His son lives in [place] and is also involved Code Status and discussions:: Full code MDM Narrative Medical decision making narrative: CC: Severe back pain Complicating co-morbidities: Sick sinus syndrome, age, multiple falls, multiple vertebral compression fractures, anticoagulation . Corroborating data: Data collected from: patient, caregiver Dev. Medical records reviewed: Breif review of records. No additional medical records are available Differential considered: Recurrent fall with new compression fractures, pain significant enough that is causing ileus and pain significant enough that it is exacerbating his cardiac issues and causing increased episodes of paroxysmal atrial fibrillation. Additional trauma not previously identified Exam documented above, pertinent findings include: Severe lower thoracic and lumbar back pain with pain significant enough he is unable to roll over. Atrial fibrillation on arrival Lab Test results independently reviewed as above. Pertinent findings: CBC is unremarkable Chemistries are reassuring COVID serology is negative Independently reviewed EKG as above Imaging studies independently reviewed: Chest x-ray shows no acute changes CT of the chest abdomen and pelvis suggests new T11 compression fracture with multiple compression fractures and disc compression with spinal stenosis throughout the lumbar spine. This is reviewed in real-time with Dr. Celeste Bassett, orthopedic surgeon who also feels that the T11 fracture is new. Consultations: Orthopedics, Cardiology, pacemaker interrogation, Treatments: Cardioversion, pain control, hospital admission Re-evaluations:845pm patient is re-evaluated in independently examined by me. Discussion: This 86-year-old gentleman with 2 falls in February initial care at [facility] follow-up with orthopedic spine surgeon and follow-up rescheduled presents with severe pain such that I believe he has put himself into atrial fibrillation and is developing an ileus. CT scan suggest new T11 compression fracture which likely prompted the ER visit today with increase in the overall severity of pain. Patient and his caregiver confirm that he has not had any additional falls since prior imaging. In reviewing films with Dr. Bassett, she is not feel that urgent transfer or orthopedic/Neurosurgery were required. She did agree that hospitalization for pain control, physical therapy would be appropriate. Will review with the hospitalist service to admit the patient. Given his paroxysmal AFib that has been cardioverted, Cardiology did not recommend amiodarone but did recommend continued anticoagulation. Pacemaker has been interrogated and according to pacemaker reps today was ?good? with no notice of rapid rhythm nor the electrical cardioversion that occurred. They do note that he had 6 minutes of atrial fibrillation documented yesterday. There is no evidence of cauda equina syndrome. The lumbar compression fractures and severe spinal stenosis does not appear worse today in comparison to CT scan from March 08 Diagnosis: 1. New T11 compression fracture: 2 falls in february with orthopedic complications including significant compression fractures with spinal stenosis in the lumbar spine. No additional details regarding the falls are available. Initially seen at [facility] and follow-up outpatient with with lumbar and cervical spine CTs ordered. Patient said he was given injections that were somewhat helpful and has a follow-up appointment on the . This problem is new, uncertain prognosis with life-threatening pot ential 2. Coronary artery disease with sick sinus syndrome, pacemaker in place currently anticoagulated on Xarelto. Presented with atrial fibrillation with rapid ventricular response was treated with single shock and converted back to sinus rhythm with episodes of paced rhythm intermittently. Problem is exacerbation of chronic issue with uncertain prognosis, life-threatening potential 3. Ileus: Presumably secondary to severe pain. Uncertain prognosis Disposition: With shared decision-making we opted to keep him in the hospital for pain control, hospitalist evaluation regarding his multiple medical comorbidities an orthopedic consultation with Physical therapy evaluation tomorrow <Anjelica Mustafa MD - Last Filed: 03/25/22 21:17> Critical Care Time Critical Care Time: Yes Total Critical Care Time: 36 Attestation: Critical care time is separate from other billable procedures. There is a high probability of a significant, sudden or life-threatening deterioration that requires my full and direct attention, intervention and personal management. This critical care time includes consultation with family and other consulting doctors, review of records, and interpretation of data from labs, EKGs and imaging as well as managements of atrial fibrillation with rapid ventricular response with IV sedation and Electrical Cardioversion, and uncontrolled pain Discharge Plan Departure Patient Disposition: Admitted as Observation Clinical Impression: Uncontrolled pain, Atrial fibrillation with rapid ventricular response Closed wedge compression fracture of T11 vertebra Qualifiers: Encounter type: initial encounter Qualified Code(s): S22.080A - Wedge compressi on fracture of T11-T12 vertebra, initial encounter for closed fracture Spinal stenosis of lumbar region Qualifiers: Neurogenic claudication status: unspecified Qualified Code(s): M48.061 - Spinal stenosis, lumbar region without neurogenic claudication Admit Date/Time: 03/25/22 21:15 Admit Provider: Daphne Cabrera
[2022-03-25 17:08] LABS: PTT Partial Thromboplastin Tim 36 SECONDS (26-36)
[2022-03-25 17:09] LABS: Alanine Aminotransferase 27 IU/L (<50); Alkaline Phosphatase 108 U/L (38-126); Aspartate Aminotransferase 32 IU/L (17-59); BUN Creatinine Ratio 11.3 (6-22); Bilirubin Total 1.1 mg/dL (0.2-1.3); Blood Urea Nitrogen 9 mg/dL (9-20); Carbon Dioxide 23 mmol/L (22-32); Chloride 106 mmol/L (98-107); Creatine Kinase < 20 U/L (55-170); Estimated Glomerular Filt Rate > 60 mL/min (>60); Glucose 89 mg/dL (80-110); HEMOLYSIS < 15 (0-50); Lipase 169 U/L (23-300); Magnesium 1.9 mg/dL (1.6-2.3); Potassium 3.8 mmol/L (3.4-5.1); Sodium 139 mmol/L (137-145); Total Protein 7.9 g/dL (6.3-8.2)
[2022-03-25 17:21] LABS: Troponin I < 0.012 ng/mL (0.01-0.034)
[2022-03-25] MEDS: propofoL 200 MG/20 ML VIAL 70 MG IV (17:42)
[2022-03-25 18:01] LABS: COVID19 -Nasal RAPID Negative (Negative)
--- NOTE | 2022-03-25 18:18 | PC.NURSE ---
Patient had 2 runs of VTACH post cardio version, one for 8 beats and one for 6 beats. Provider notified, has not had another episode since those two.
--- NOTE | 2022-03-25 18:28 | DI.CT.S_ITS ---
PROCEDURE: CT CHEST ABD PEL W CON INDICATIONS: falls with back pain, known L1 with retropulsion, on thinner TECHNIQUE: After the administration of intravenous contrast, 5 mm thick sections acquired from the lung apices to the symphysis. 2.5 mm thick coronal and sagittal reformats were acquired. Additional 7 mm thick coronal maximum intensity projection (MIP) reformats acquired through the lungs. Optional 10-minute delayed imaging may be performed from the kidneys to the bladder. For radiation dose reduction, the following was used: automated exposure control, adjustment of mA and/or kV according to patient size. COMPARISON: [facility], CT, CT LUMBAR SPINE WO CON, 03/08/2022, 13:31. FINDINGS: Image quality: Excellent. CHEST: Lungs: No pulmonary contusions or lacerations. Dependent atelectasis is seen in the lung bases. No focal consolidation. No pneumothorax or hemothorax. Central and peripheral airways appear patent and normal in caliber. Mediastinum: No mediastinal hematomas. Heart size is normal. No pericardial effusion. Thoracic aorta and pulmonary arteries demonstrate normal size and enhancement. Mild aortic atherosclerotic calcifications. No mediastinal or hilar adenopathy. Esophagus is normal in caliber. Small hiatal hernia. Chest wall: A cardiac pacemaker is seen with pulse generator in the left chest. No subcutaneous emphysema. No axillary or supraclavicular adenopathy. Thyroid is unremarkable. ABDOMEN: Solid organs: The liver is hypoattenuating, consistent with fatty infiltration. Gallbladder contains multiple gallstones. No signs of acute cholecystitis. Biliary system is non-dilated. Pancreas enhances normally, without transection. Coarse calcifications in the spleen are most likely secondary to prior granulomatous disease. Spleen is normal in size and enhancement, without lacerations. No adrenal hematomas. Both kidneys enhance normally, without hydronephrosis or lacerations. Peritoneum and bowel: No free fluid or air. Numerous diverticula are seen in the: Without signs of acute diverticulitis. Nodes and vessels: No retroperitoneal or mesenteric adenopathy. Aorta and inferior vena cava are normal in size and enhancement. Mild aortic atherosclerotic calcifications. Miscellaneous: No ventral hernias. PELVIS: Genitourinary: Bladder wall thickness is normal. Miscellaneous: There is a fat containing left inguinal hernia. Bones: Generalized osteopenia. Multilevel compression fractures are seen in the spine including at L1, L2, L3, and L4 with retropulsion of osseous fragments. These fractures do not appear significantly changed when compared to the CT from 03/08/2022. Additional moderate compression fracture at T11 appears new when compared to the radiographs from 02/16/2022. Healing a right 3rd through 8th rib fractures are present. Chronic left 10th and 11th rib fractures. A left medial clavicular fracture is seen with mild healing changes. IMPRESSION: 1. Multiple vertebral body compression fractures. Moderate compression deformity at the T11 vertebral body appears new when compared to radiographs dated 02/16/2022. Additional compression fractures at L1 through L4 do not appear significantly changed with unchanged retropulsion of osseous fragments at L1. 2. Multiple bilateral rib fractures with signs of healing, likely subacute to chronic. 3. Medial left clavicular fracture is seen adjacent to the sternoclavicular joint with healing changes. 4. Diffuse hepatic steatosis. 5. Cholelithiasis. 6. Colonic diverticulosis. Approved by: Kb Gaytan M.D. on 03/25/2022 at 19:08
--- NOTE | 2022-03-25 19:48 | PC.NURSE ---
Called [employer] concerning interrogation report, local rep paged.
[2022-03-25] MEDS: HYDROMORPHONE 0.5 MG INJ IV (21:19)
[2022-03-25 21:48] LABS: Albumin 3.7 g/dL (3.5-5.0); Albumin Globulin Ratio 0.9 (1.0-2.8); Globulin 4.2 g/dL (1.7-4.1)
--- NOTE | 2022-03-25 21:49 | DI.ECHO.S_ITS ---
[place] [facility]---------+ [facility] +---------+ : : [address] : : : : [id number] : : : : Phone: [phone]---------+ Echocardiogram Report + + :Name: VIVIANE JACKSON Study Date: 03/26/2022 Height: 68 in : :[facility] ReadingLocation: Weight: 150 lb : : Gender: Male BSA: 1.8 m2 : :: 1935 Age: 86 yrs BP: 145/96 mmHg: :Reason For Study: AFIB WITH RVR-PACER UNRECOGNIZED : :Ordering Physician: JOSSUE, : :ROOSEVELT Performed By: Malathi Allen : :Referring: ROOSEVELT MARCUM : + + Interpretation Summary The patient was in normal sinus rhythm during the exam. The left ventricle is normal in size and wall thickness. Left ventricular ejection fraction is estimated to be 50 +/- 5%. Diastolic parameters suggest a pseudonormalization pattern, consistent with probable elevated filling pressures. The right ventricle is normal in size and function. There is a pacemaker lead in the right ventricle. There is mild mitral valve prolapse. There is prolapse of the posterior mitral valve leaflet(s).However the mitral regurgitation jet is not anteromedially directed. There is moderate mitral regurgitation. There is mild to moderate aortic regurgitation. There is moderate tricuspid regurgitation. The right ventricular systolic pressure is estimated to be at least 30 mmHg based on an estimated right atrial pressure of 3 mm Hg. The aortic root is mildly dilated. The ascending aorta is mildly enlarged. Procedure: A two-dimensional transthoracic echocardiogram with color flow and Doppler was performed. The study quality was technically adequate. There is no prior echocardiogram noted for this patient. The heart rate ranged between 65-77 bpm during the study. The patient was in normal sinus rhythm during the exam. Left Ventricle: The left ventricle is normal in size and wall thickness. There is no thrombus. Left ventricular ejection fraction is estimated to be 50 +/- 5%. There are no focal wall motion abnormalities. Diastolic parameters suggest a pseudonormalization pattern, consistent with probable elevated filling pressures. Right Ventricle: The right ventricle is normal in size and function. There is a pacemaker lead in the right ventricle. Atria: The left atrium is severely dilated. There is a catheter/pacemaker lead seen in the right atrium. The right atrium is severely dilated. There is no Doppler evidence for an interatrial shunt. Mitral Valve: There is mild mitral annular calcification. The mitral valve chordae are thickened and/or calcified. There is prolapse of the posterior mitral valve leaflet(s). There is mild mitral valve prolapse. There is moderate mitral regurgitation. Aortic Valve: The aortic valve is trileaflet. The aortic valve is slightly calcified. There is minimally reduced leaflet mobility. There is no aortic valve stenosis. There is mild to moderate aortic regurgitation. Tricuspid Valve: The tricuspid annulus is dilated. There is moderate tricuspid regurgitation. The right ventricular systolic pressure is estimated to be at least 30 mmHg based on an estimated right atrial pressure of 3 mm Hg. Pulmonic Valve: The pulmonic valve leaflets are thin and pliable; valve motion is normal. There is mild pulmonic regurgitation. Great Vessels: The aortic root is mildly dilated. The ascending aorta is mildly enlarged. The IVC is of normal diameter and collapses greater than 50% with a sniff. This suggests a low right atrial pressure of 3 mm Hg. Pericardium/ Pleura There is no pericardial effusion. There is no pleural effusion. MMode/2D Measurements & Calculations LVIDd: 5.0 cm LVOT diam: 2.1 cm LVIDs: 3.8 cm Ao root diam: 4.4 cm FS: 23.3 % asc Aorta Diam: 3.9 cm IVSd: 0.88 cm Ao Arch Diam (Prox Trans): 2.6 cm LVPWd: 0.88 cm LV smith. diameter/BSA (cm/m^2): 2.7 LV sys. diameter/BSA (cm/m^2): 2.1 LA A2 area: 25.1 cm2 RA long axis: 7.1 cm LA A4 area: 24.2 cm2 RA area: 27.2 cm2 LA length (vol): 6.1 cm RA vol: 88.7 ml LA vol: 85.0 ml RA : 49.0 ml/m2 LA vol index: 47.0 ml/m2 IVC diam: 1.4 cm RVD1 (basal): 4.0 cm RVD2 (mid): 2.8 cm TAPSE: 2.5 cm Doppler Measurements & Calculations Ao V2 max: 115.2 cm/sec LVOT Max Manolo: 81.4 cm/sec Ao V2 mean: 80.2 cm/sec LV V1 max P.7 mmHg Ao max P.3 mmHg LV V1 VTI: 15.3 cm Ao mean P.9 mmHg YANCY(I,D): 2.4 cm2 Ao V2 VTI: 23.1 cm YANCY(V,D): 2.5 cm2 sev ratio: 0.66 YANCY indexed to BSA (cm^2/m^2): 1.3 AI P1/2t: 1121 msec AI dec slope: 118.3 cm/sec2 MV E max manolo: 66.4 cm/sec TR max manolo: 261.2 cm/sec MV A max manolo: 33.5 cm/sec TR max P.4 mmHg MV E/A: 2.0 PA V2 max: 80.9 cm/sec Med Peak E' Manolo: 6.0 cm/sec PA V2 mean: 52.1 cm/sec E/E' med: 11.0 PA mean P.3 mmHg Lat Peak E' Manolo: 8.8 cm/sec PA pr(Accel): 41.3 mmHg E/E' lat: 7.6 E/e' average: 9.3 MV dec time: 0.17 sec MR ERO: 0.10 cm2 MR PISA: 1.3 cm2 SV(LVOT): 54.7 ml MR flow rate: 57.3 cm3/sec MR PISA radius: 0.46 cm Reading Physician:09:40 AM
[2022-03-25] MEDS: OXYCODONE/ACETAMINOPHEN 5/325 TABLET 2 TAB PO (21:59)
--- NOTE | 2022-03-25 22:04 | P.HP_ITS ---
History of Present Illness History of Present Illness Date Patient Seen: 03/25/22 Time Patient Seen: 22:04 Chief complaint: Back pain Narrative: Celso Cuevas 86-year-old male slightly poor historian with history of AFib on Xarelto for many years, pacemaker placement for sick sinus syndrome, history of ventricular tachycardia, osteoporosis, BPH frequent falls, previously imaged & seen 03/08/22 for multiple lumbar compression fractures, clavicle fracture, rib fractures due to 2 ground level falls. presented to ED for worsening episodes of shortness of breath and fatigue but primarily due to severe midline low back pain. Which is now impacting his ability to function home, safety, and manage ADLs.? He denies any numbness, tingling, bowel or bladder incontinence, chest pain occasional shortness of breath which is normal for him.? In ED he had significant pain worse with range of motion and improves with rest and pain medication. At the time of admit patient was resting comfortably denied any pain at rest with no movement in bed. Patient denies headache, changes in vision, cough, congestion, ear eye discomfort, upper respiratory symptoms, fever, body aches, chills, abdominal pain, nausea, vomiting, diarrhea, urinary symptoms, fully empties bladder, hematemesis, hematuria, changes in bowel, melena, recent medication changes, exposure too or illness. On admit patient is stable temp 98.2?, BP 140/80, HR 90 sinus rhythm, RR 15, O2 saturation 98% on room air. Patient resting comfortably sleeping bed easily arousable. In ED patient was in AFib with RVR heart rates 143-30, and 2 episodes of V-tach 8 attend be runs. Was successfully cardioverted and continues to be in sinus rhythm. No WBC, mono 11,000. Stable electrolytes potassium 3.8, Mag 1.9, PT 17.4, INR 1.5, initial troponin negative, COVID negative, initial EKG in ED AFib with a rate of 136, post cardioversion sinus rhythm with sinus arrhythmia rate of [address] and T-wave changes, no comparison for labs diagnostics or EKG in system. CT of chest abdomen pelvis: Multiple lumbar compression fractures L1-L4, hepatic steatosis, noted gallstones nonobstructing, cholelithiasis, colonic diverticulosis. Patient was seen evaluated in imaging completed prior at another facility, and has seen Dr. Cesar sherwood regarding multiple fractures, is scheduled for follow-up on 03/26/2021. Chest x-ray radiology noted was a poor exam, document abnormal cardiopulmonary process but nothing further noted. Patient admitted for AFib with RVR, pacer on Xarelto, multiple healing lumbar compression fractures, bilateral rib fractures, left medial clavicle fracture unstable gait frequent falls. Dr. Tony in the ED noted a possible developing ileus, but no documented findings on imaging at this time. Dr. Bassett orthopedics consulted in ED does not feel that the patient requires surgical intervention, will evaluate tomorrow. Patient History Medical History (Updated 03/26/22 @ 04:00 by MP Madrigal) BPH (benign prostatic hyperplasia) Chronic anticoagulation Osteoporosis Surgical History (Updated 03/26/22 @ 04:00 by MP Madrigal) History of permanent cardiac pacemaker placement Family & Social History Family History Mother Cancer Father No problems noted. Social History: Patient's son lives in [facility], and has a full-time in-house caregiver Dev. Safety & Behavioral: Feels Safe in Current Yes Environment Been Physically Hurt or No Threatened By a Person Tobacco & Substance use: Smoking Status Never smoker alcohol intake frequency holiday/special occasion Meds Home Medications and Allergies Home Medications Medication Instructions Recorded Confirmed Type bimatoprost 0.01 % eye drops 1 drp ophthalmic (eye) DAILY 03/25/22 03/25/22 History (Evert) bupropion HCl 150 mg tablet,12 hr 150 mg PO BID 03/25/22 03/25/22 History sustained-release diltiazem HCl 240 mg 240 mg PO DAILY 03/25/22 03/25/22 History capsule,extended release 24 hr dorzolamide 22.3 mg-timolol 6.8 1 drp ophthalmic (eye) DAILY 03/25/22 03/25/22 History mg/mL eye drops finasteride 5 mg tablet 5 mg PO DAILY 03/25/22 03/25/22 History omeprazole 20 mg capsule,delayed 20 mg PO DAILY 03/25/22 03/25/22 History release rivaroxaban 20 mg tablet (Xarelto) 20 mg PO QPM 03/25/22 03/25/22 History tamsulosin 0.4 mg capsule 0.4 mg PO BEDTIME 03/25/22 03/25/22 History triamcinolone acetonide 0.1 % 1 applic topical DAILY PRN Dry Skin 03/25/22 03/25/22 History topical ointment vitamin B complex (B 1 tab PO DAILY 03/25/22 03/25/22 History Complex-Vitamin B12 tablet) Allergies Allergy/AdvReac Type Severity Reaction Status Date / Time No Known Drug Allergies Allergy Verified 03/25/22 21:16 Review of Systems Review of Systems Narrative: All 12 point systems reviewed with the patient and are negative except otherwise documented. Exam Vital Signs (past 8 hours): - 03/25/22 16:14 03/25/22 16:51 03/25/22 16:52 Temperature 98.2 F Pulse Rate 135 H 130 H Respiratory Rate 19 22 Blood Pressure 143/81 H 128/82 Pulse Oximetry 97 97 Oxygen Delivery Method Room Air 03/25/22 16:52 03/25/22 17:00 03/25/22 17:00 Temperature Pulse Rate 136 H 131 H Respiratory Rate 15 16 Blood Pressure 125/90 Pulse Oximetry 97 97 Oxygen Delivery Method 03/25/22 17:16 03/25/22 17:16 03/25/22 17:20 Temperature Pulse Rate 133 H Respiratory Rate 11 L Blood Pressure 131/85 153/82 H Pulse Oximetry 96 Oxygen Delivery Method 03/25/22 17:20 03/25/22 17:30 03/25/22 17:31 Temperature Pulse Rate 138 H 140 H Respiratory Rate 20 13 Blood Pressure 134/102 H Pulse Oximetry 97 97 Oxygen Delivery Method 03/25/22 17:31 03/25/22 17:35 03/25/22 17:35 Temperature Pulse Rate 143 H 136 H Respiratory Rate 13 10 L Blood Pressure 119/94 H Pulse Oximetry 96 95 Oxygen Delivery Method 03/25/22 17:40 03/25/22 17:40 03/25/22 17:20 Temperature Pulse Rate 135 H 118 H Respiratory Rate 18 12 Blood Pressure 105/80 Pulse Oximetry 96 Oxygen Delivery Method 03/25/22 17:45 03/25/22 17:45 03/25/22 17:51 Temperature Pulse Rate 86 Respiratory Rate 18 Blood Pressure 129/84 117/83 Pulse Oximetry 94 Oxygen Delivery Method 03/25/22 17:51 03/25/22 17:55 03/25/22 17:55 Temperature Pulse Rate 90 85 Respiratory Rate 23 15 Blood Pressure 120/82 Pulse Oximetry 95 95 Oxygen Delivery Method 03/25/22 18:00 03/25/22 18:00 03/25/22 18:05 Temperature Pulse Rate 87 84 Respiratory Rate 15 13 Blood Pressure 131/75 Pulse Oximetry 96 95 Oxygen Delivery Method 03/25/22 18:05 03/25/22 18:10 03/25/22 18:10 Temperature Pulse Rate 85 Respiratory Rate 14 Blood Pressure 123/79 121/83 Pulse Oximetry 95 Oxygen Delivery Method 03/25/22 18:15 03/25/22 18:15 03/25/22 18:20 Temperature Pulse Rate 86 Respiratory Rate 15 Blood Pressure 122/83 128/79 Pulse Oximetry 95 Oxygen Delivery Method 03/25/22 18:20 03/25/22 18:25 03/25/22 18:25 Temperature Pulse Rate 85 86 Respiratory Rate 16 17 Blood Pressure 118/81 Pulse Oximetry 95 96 Oxygen Delivery Method 03/25/22 18:30 03/25/22 18:30 03/25/22 19:00 Temperature Pulse Rate 87 89 Respiratory Rate 14 14 Blood Pressure 134/87 Pulse Oximetry 96 97 Oxygen Delivery Method 03/25/22 19:07 03/25/22 19:07 03/25/22 19:10 Temperature Pulse Rate 90 Respiratory Rate 14 Blood Pressure 121/81 135/82 Pulse Oximetry 98 Oxygen Delivery Method 03/25/22 19:10 03/25/22 19:15 03/25/22 19:15 Temperature Pulse Rate 88 89 Respiratory Rate 14 21 Blood Pressure 148/93 H Pulse Oximetry 98 99 Oxygen Delivery Method 03/25/22 19:21 03/25/22 19:21 03/25/22 19:25 Temperature Pulse Rate 91 H Respiratory Rate 17 Blood Pressure 141/93 H 137/96 H Pulse Oximetry 98 Oxygen Delivery Method 03/25/22 19:25 03/25/22 19:30 03/25/22 19:30 Temperature Pulse Rate 90 91 H Respiratory Rate 21 11 L Blood Pressure 140/92 H Pulse Oximetry 98 98 Oxygen Delivery Method 03/25/22 19:35 03/25/22 19:35 03/25/22 19:40 Temperature Pulse Rate 91 H 103 H Respiratory Rate 15 22 Blood Pressure 136/92 H Pulse Oximetry 98 98 Oxygen Delivery Method 03/25/22 19:40 03/25/22 19:45 03/25/22 19:45 Temperature Pulse Rate 92 H Respiratory Rate 17 Blood Pressure 150/97 H 152/86 H Pulse Oximetry 99 Oxygen Delivery Method 03/25/22 19:50 03/25/22 19:50 03/25/22 19:55 Temperature Pulse Rate 90 Respiratory Rate 16 Blood Pressure 150/90 H 151/97 H Pulse Oximetry 99 Oxygen Delivery Method 03/25/22 19:55 03/25/22 20:00 03/25/22 20:00 Temperature Pulse Rate 92 H 90 Respiratory Rate 11 L 17 Blood Pressure 148/92 H Pulse Oximetry 98 99 Oxygen Delivery Method 03/25/22 20:06 03/25/22 20:06 03/25/22 20:10 Temperature Pulse Rate 93 H Respiratory Rate 20 Blood Pressure 125/81 127/75 Pulse Oximetry 99 Oxygen Delivery Method 03/25/22 20:10 03/25/22 20:15 03/25/22 20:15 Temperature Pulse Rate 92 H 90 Respiratory Rate 15 15 Blood Pressure 134/82 Pulse Oximetry 99 98 Oxygen Delivery Method 03/25/22 20:20 03/25/22 20:20 03/25/22 20:30 Temperature Pulse Rate 91 H Respiratory Rate 20 Blood Pressure 132/84 136/88 Pulse Oximetry 98 Oxygen Delivery Method 03/25/22 20:30 03/25/22 20:45 03/25/22 20:45 Temperature Pulse Rate 91 H 90 Respiratory Rate 17 15 Blood Pressure 140/80 Pulse Oximetry 98 98 Oxygen Delivery Method Oxygen Delivery Method Room Air Narrative Exam Narrative: General: Patient appears well-nourished, elderly male, in no pain without move ment and no distress at this time. HEENT: Normocephalic, atraumatic, extraocular muscles intact, oral pharynx is clear and mucous membranes are moist. Neck is supple and symmetric, trachea is midline, no adenopathy, no thyroid enlargement, nontender, no masses palpated. Negative for JVD Chest: Breathing without nasal flaring, retractions, or tachypneic labored Lungs: Auscultation of all lung david are clear without adventitious sounds, wheezes, rhonchi, or rales. Cardio: Regular rate and irregular rhythm without no carotid bruit, no cardiac pulsations present. Abdomen: Soft nontender, negative for organomegaly, or masses. Bowel sounds are present in all 4 quadrants without guarding or rebound, no CVA tenderness. Musculoskeletal: Muscle strength and tone appear equal within normal limits for age, no obvious deformity, crepitus, effusions, cyanosis, clubbing or edema present. Severe significant pain midline lumbar, paraspinal tenderness with palpation and movement. Intact radial and pedal pulses are normal. Skin: Warm dry and intact without rashes, ulcerations or petechiae. Neuro: Alert and orientated x3, sensation to touch intact, no obvious gross observe deficits noted of cranial nerves. Psych: Patient has a well-kept appearance, appropriate affect, mental status attitude thought context and judgment are appropriate for age. Objective Labs Result Diagrams: 03/25/22 16:40 03/25/22 16:40 Labs: Laboratory Results - last 24 hr 03/25/22 03/25/22 03/25/22 16:40 16:40 16:40 WBC 10.3 RBC 4.62 Hgb 15.6 Hct 45.9 MCV 99.4 MCH 33.9 MCHC 34.1 RDW 14.5 Plt Count 218 Neut % (Auto) 63.6 Lymph % (Auto) 22.0 L [place] % (Auto) 11.0 Eos % (Auto) 2.1 Baso % (Auto) 1.3 Neut # (Auto) 6500 Lymph # (Auto) 2300 [place] # (Auto) 1100 H Eos # (Auto) 200 Baso # (Auto) 100 PT 17.4 H INR 1.5 H APTT 36 Sodium 139 Potassium 3.8 Chloride 106 Carbon Dioxide 23 BUN 9 Creatinine 0.80 Estimated GFR > 60 BUN/Creatinine Ratio 11.3 Glucose 89 Calcium 9.0 Magnesium 1.9 Total Bilirubin 1.1 AST 32 ALT 27 Alkaline Phosphatase 108 Total Creatine Kinase < 20 L CK-MB (CK-2) TNP CK-MB (CK-2) Rel Index TNP Troponin I < 0.012 Total Protein 7.9 Albumin 3.7 Globulin 4.2 H Albumin/Globulin Ratio 0.9 L Lipase 169 SARS-CoV-2 (PCR) 03/25/22 16:55 WBC RBC Hgb Hct MCV MCH MCHC RDW Plt Count Neut % (Auto) Lymph % (Auto) [place] % (Auto) Eos % (Auto) Baso % (Auto) Neut # (Auto) Lymph # (Auto) [place] # (Auto) Eos # (Auto) Baso # (Auto) PT INR APTT Sodium Potassium Chloride Carbon Dioxide BUN Creatinine Estimated GFR BUN/Creatinine Ratio Glucose Calcium Magnesium Total Bilirubin AST ALT Alkaline Phosphatase Total Creatine Kinase CK-MB (CK-2) CK-MB (CK-2) Rel Index Troponin I Total Protein Albumin Globulin Albumin/Globulin Ratio Lipase SARS-CoV-2 (PCR) Negative Assessment & Plan Assessment & Plan narrative: Celso Cuevas 86-year-old male slightly poor historian with history of AFib on Xarelto for many years, pacemaker placement for sick sinus syndrome, history of ventricular tachycardia, osteoporosis, frequent falls, previously seen for multiple lumbar compression fractures, clavicle fracture, rib fractures due to a ground level fall February of 2022. Presented to ED due to increasing SOB, fatigue, and worsening severe midline low back pain, that was impairing his ability to function home, safety, and manage ADLs. This patient requires acute care inpatient hospital admission management for AFib RVR on Xarelto, sick sinus syndrome, ventricular tachycardia, frequent falls, & multiple lumbar compression fractures, clavicle fracture, bilateral rib fractures, resulting in impaired mobility, safety, due to escalating pain after failing outpatient management. The patient is at much higher risk for medical and surgical complications because of age, chronic anticoagulation, atrial fibrillation with RVR, ventricular tachycardia, osteoporosis and continued frequent falls . These factors increase the difficulty and complexity of medical and surgical interventions and increases the chances of poor outcomes such as morbidity and mortality. The patient's atrial fibrillation with RVR, and ventricular tachycardia, bilateral rib fractures, left clavicle fracture, as well as mild malnutrition will impact his oxygenation, which increases the risk of pneumonia. Patient admitted for AFib with RVR, pacer on Xarelto, ventricular tachycardia multiple healing lumbar compression fractures, and left medial clavicle fracture. 1. AFib with RVR, acute on chronic, on Xarelto, ventricular tachycardia, intermittent, acute on chronic, with implanted pacemaker, chronic, acute failure, present on admission- resolved -On admit patient is stable temp 98.2?, BP 140/80, HR 90 sinus rhythm, RR 15, O2 saturation 98% on room air. -after arrival on the floor the patient has demonstrated a couple runs of V- tach, was asymptomatic, and pacer worked appropriately and resolved to sinus. -In ED patient was in AFib with RVR heart rates 143-130, and 2 episodes of V- tach 8-10 beat runs. Successfully cardioverted and continues to be in sinus rhythm. -it should be noted that Dr. Arora interrogated the pacemaker which did not register or acknowledge the atrial fibrillation with RVR, the runs of V-tach nor the cardioversion-patient should follow-up with Cardiology upon discharge for evaluation of pacemaker function. -potassium 3.8, Mag 1.9, PT 17.4, INR 1.5, initial troponin negative, COVID negative, -initial EKG in ED AFib with a rate of 136, post cardioversion sinus rhythm with sinus arrhythmia rate of [address] and T-wave changes, no comparison for labs diagnostics or EKG in system. -continue diltiazem, finasteride. Holding Xarelto for possibility of surgical intervention tomorrow for ortho. -ordered ETOH, TSH, free T4, lipids, BNP, A1c -initial troponin negative, will trend -placed on telemedicine -Chest x-ray radiology noted was a poor exam, document abnormal cardiopulmonary process but nothing further noted. 2. 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 -Social Determinants of Health that impact treatment or disposition: age, inability to function at home due to pain. -February 2022: Ground level fall resulting in multiple pathologic fractures. -03/08/2022 advanced imaging from our facility C-spine and lumbar noting multilevel osteopenic compression fractures with retropulsed fracture segment at L1 resulting in moderate central stenosis. -Dr. Bassett ortho consulted in ED did not feel that the patient requires surgical intervention, will evaluate patient tomorrow. -patient NPO after midnight, except medication, hold Xarelto in the event Dr. Bassett wishes to take the patient to the OR. -On admit: CT of chest abdomen pelvis: Multiple lumbar compression fractures L1-L4, hepatic steatosis, noted gallstones nonobstructing, cholelithiasis, colonic diverticulosis. -Managed outpatient Dr. Guerrero ortho -scheduled for follow-up on 03/26/2021. -Chest x-ray radiology noted was a poor exam, document abnormal cardiopulmonary process but nothing further noted. -pain management -PT/OT evaluation, patient will likely require rehab or SNF placement on discharge 3. Malnutrition, mild, acute on chronic, present on admission -as evidence by BMI 22.8 -patient's malnutrition places them at high risk for medical and surgical complications because of the mild malnutrition in relation to acute atrial fibrillation with RVR, ventricular tachycardia. This increases the difficulty in complexity of medical management and increases the chances poor outcomes such as mortality and morbidity as well as impaired wound healing from multiple pathologic osteopathic, fractures and immune suppression. Also contributing to global weakness deconditioning and increased falls. -dietary consult ordered to evaluate and implement steps to improve caloric intake and nutrition. 4. BPH, chronic, present on admission -unknown if obstructive -continue tamsulosin once cleared by Dr. Bassett ortho- 5. GERD, chronic, present on admission -continue omeprazole once no longer NPO Code status: Full Surrogate decision maker: Son, patient also has a full-time caregiver Dev AYALA PCR: Negative DVT/VTE prophylaxis: Patient on Xarelto, SCDs only Disposition: Patient admitted to acute care for AFib with RVR, with runs of V- tach, now in sinus rhythm, echo tomorrow, pain control for fractures, ortho consult, PT/OT consult for multiple falls and gait instability, global weakness and deconditioning, patient will likely require placement with rehab or SNF on discharge. I have utilized all available immediate resources to obtain, update, or review the patient's current medications. I have personally reviewed patient's chart notes from PCP, specialists, diagnostic imaging, and laboratory results. Time Spent With Patient Critical Care time: I spent a total of [] minutes of critical care time on this patient's care today; this time is exclusive of procedural time.
[2022-03-25 22:20] LABS: Lactate (Lactic Acid) 0.9 mmol/L (0.7-2.1)
[2022-03-25 22:25] LABS: Ethanol (ETOH) < 10 mg/dL
[2022-03-25 22:38] LABS: NT-proBNP (BNP-Adult 18+) 3110 pg/mL (<450)
[2022-03-25 22:43] LABS: Free T4, Direct Thyroxine 1.09 ng/dL (0.78-2.19)
[2022-03-25 23:00] LABS: Thyroid Stimulating Hormone 8.95 uIU/mL (0.47-4.68)
[2022-03-25 23:11] LABS: Troponin I 0.023 ng/mL (0.01-0.034)
[2022-03-25] MEDS: SENNOSIDES 8.6 MG TABLET 17.2 MG PO (23:25)
[2022-03-26] VITALS: BP 133/90; PULSE 91; RESP 18; TEMP 36.4; O2SAT 97
[2022-03-26 03:26] LABS: Hemoglobin A1C% w Est Avg Glu 5.1 % (4.0-6.0)
[2022-03-26 03:57] LABS: Add Manual Diff / Slide Review NO; Basophils Absolute Auto 100 /uL (0-100); Eosinophils Absolute Auto 200 /uL (0-450); Eosinophils Percent Auto 1.8 % (2-4); Hematocrit 39.2 % (41-53); Hemoglobin 13.6 g/dL (13.5-17.5); Lymphocytes Absolute Auto 1600 /uL (1100-4500); Lymphocytes Percent Auto 17.8 % (25-40); Mean Corpuscular HGB Conc 34.6 % (30-36); Mean Corpuscular Volume 98.1 fL (80-100); Monocytes Absolute Auto 1100 /uL (0-900); Monocytes Percent Auto 11.9 % (3-14); Neutrophils Absolute Auto 6100 /uL (1500-7000); Neutrophils Percent Auto 67.5 % (50-75); Platelet Count 191 X10^3/uL (150-400); Red Blood Cell Count 3.99 X10^6/uL (4.5-5.9); Red Cell Distribution Width 14.4 % (11.6-14.8)
[2022-03-26 04:00] VITALS: BP 118/67; PULSE 61; RESP 18; TEMP 36; O2SAT 98
[2022-03-26 04:03] LABS: INR 1.5 (0.9-1.3); Prothrombin Time 17.7 SECONDS (10.1-12.7)
[2022-03-26 04:09] LABS: BUN Creatinine Ratio 13.8 (6-22); Blood Urea Nitrogen 9 mg/dL (9-20); Calcium 8.3 mg/dL (8.4-10.2); Carbon Dioxide 21 mmol/L (22-32); Chloride 107 mmol/L (98-107); Cholesterol 104 mg/dL (140-199); Estimated Glomerular Filt Rate > 60 mL/min (>60); Glucose 127 mg/dL (80-110); HDL Cholesterol 34 mg/dL (40-60); HEMOLYSIS < 15 (0-50); LDL Cholesterol Calculated 55 mg/dL (<100); Magnesium 1.8 mg/dL (1.6-2.3); Potassium 3.3 mmol/L (3.4-5.1); Sodium 138 mmol/L (137-145); Triglycerides 75 mg/dL (35-150)
[2022-03-26 04:20] LABS: Troponin I 0.014 ng/mL (0.01-0.034)
[2022-03-26 04:26] LABS: Procalcitonin 0.05 ng/mL (<0.5)
[2022-03-26] MEDS: POTASSIUM CHLORIDE 20 MEQ TAB 40 MEQ PO (04:35)
[2022-03-26 08:00] VITALS: BP 132/82; PULSE 74; RESP 17; TEMP 36.5; O2SAT 97
[2022-03-26] MEDS: dilTIAZem CD 240 MG CAP PO (08:37)
[2022-03-26] MEDS: FINASTERIDE 5 MG TABLET PO (08:37)
[2022-03-26] MEDS: buPROPion SR 150 MG TAB PO ×2 (08:37→21:41)
--- NOTE | 2022-03-26 11:24 | PT-IP ANOTE ---
Pt admitted with multiple spinal fractures - most subacute but possible acute T11 compression fracture. He also has subacute left clavicle and rib fractures. Awaiting ortho consult at this time and will defer PT evaluation until pt seen by ortho.
--- NOTE | 2022-03-26 11:30 | OT.IPNOTE ---
Pt admitted with multiple spinal fractures - most subacute but possible acute T11 compression fracture. He also has subacute left clavicle and rib fractures. Awaiting ortho consult at this time and will defer OT evaluation until pt seen by ortho.
[2022-03-26 11:39] LABS: Appearance Urine UA CLEAR; Bilirubin Urine UA NEGATIVE (NEGATIVE); Color Urine UA YELLOW; Glucose Urine UA NEGATIVE (Negative); Ketones Urine UA TRACE (NEGATIVE); Leukocyte Esterase Urine UA NEGATIVE (NEGATIVE); Nitrite Urine UA NEGATIVE (Negative); Occult Blood Urine UA TRACE-INTACT (Negative); Protein Urine UA NEGATIVE (Negative); Specific Gravity Urine UA 1.015 (1.000-1.035); Urobilinogen Urine UA 0.2 E.U./dL (0.2)
[2022-03-26 11:40] LABS: UR Morphine/Opiate cutoff 300 Positive (Negative); Ur Creatinine Normal (Normal); Ur Specific Gravity Normal (Normal); Urine Amphetamines Negative (Negative); Urine Barbiturates Negative (Negative); Urine Benzodiazepines Negative (Negative); Urine Cocaine Negative (Negative); Urine MDMA Negative (Negative); Urine Methadone Negative (Negative); Urine Methamphetamines Negative (Negative); Urine Oxycodone Positive (Negative); Urine Phencyclidine Negative (Negative); Urine Tetrahydrocannabinol Negative (Negative); Urine Tricyclic Antidepressant Negative (Negative); Urine pH Normal (Normal)
[2022-03-26 11:45] LABS: Bacteria Urine None Seen; Culture Indicated Urine Cult Not Indicated; RBC Urine None Seen (0-5/HPF); Urine Comments Microscopic Normal; WBC Urine None Seen (0-5/HPF)
[2022-03-26 12:00] VITALS: BP 127/76; PULSE 71; RESP 17; TEMP 36.6; O2SAT 96
[2022-03-26] MEDS: ACETAMINOPHEN 325 MG TABLET 650 MG PO ×2 (12:52→18:21)
--- NOTE | 2022-03-26 13:34 | CM.DANOTE ---
DCP: Assessment: Pt is an 86 yo male here via pov with friend with c/o severe back pain, Afib with RVR, with implanted pacemaker. He is noted to have Spinal stenosis of lumbar region, with closed wedge compression fracture of T11. He states that he uses a cane and a FWW at home. He is awaiting Orthopedic Consult. This CM met with pt in his room, he was laying in his bed, this CM introduced self and role. Pt reports that he lives in [place] and has a friend name Dev who's prepares his breakfast and lunch almost daily. Pt reports that he does not drive, Dev takes me where ever I need to go. Pt state's that Dev comes to his house everyday. This CM spoke with pt about attaining PT/OT services at a SNF when discharged. Pt is not agreeable to SNF inpatient service. This CM reviewed HH services with pt. Pt is agreeable to [facility] for services upon discharge. P: PT/OT assessments pending. Plan is referral to [facility] for services. Discharge Planning/Care Management CM Discharge Assessment Start: 03/26/22 11:52 Freq: Status: Active Protocol: Document 03/26/22 11:52 TING (Rec: 03/26/22 12:12 [id number]) Discharge Planning Assessment Assigned Power Transformer Inspector Jia Cuadra RN/ Installation Technician Advance Directives? No History Provided By Patient Has Patient been admitted in last 30 No days? Prior Living Arrangements House Household Members none,other Comment Pt lives alone, but he reports that his friend Dev and prepare breakfast and dinner for him almost daily Type of transporation used prior to Relies on Others admit Comment Pt reports that he does not drive at baseline Independent with ADL's Yes Is patient alert and oriented? Yes: A +Ox3, forgetful Needs Assistance With Meal Prep Caregiver for Another No DME Already Rented / Owned FWW / Walker,Cane Barriers to Discharge No Discharge Plan [facility] Transportation Arrangement Pt has a Caregiver/Friend Dev Whiteboard Updated in Patient Room with Yes name and ext. # of Power Transformer Inspector Review Status In Process Next Review Type Continued Stay Review Document 03/26/22 13:21 TING (Rec: 03/26/22 13:34 TING [id number]) Discharge Planning Assessment Assigned Power Transformer Inspector Jia Cuadra RN/ Installation Technician Advance Directives? No History Provided By Patient Has Patient been admitted in last 30 No days? Household Members none,other Comment Pt lives alone, but he reports that his friend Dev and Luis Alberto's prepare breakfast and dinner for him daily Type of transporation used prior to Relies on Others admit Comment Pt reports that he does not drive at baseline Independent with ADL's Yes Is patient alert and oriented? Yes: A +Ox3, forgetful Needs Assistance With Meal Prep,Managing Medications Caregiver for Another No DME Already Rented / Owned FWW / Walker,Cane Patient/Family Preference Home with Home Health Barriers to Discharge No Discharge Plan Home with Home Health Transportation Arrangement Pt has a Caregiver/Friend Dev Additional Comment Pt is not agreeable to SNF. Pt is agreeable to . Whiteboard Updated in Patient Room with Yes name and ext. # of Power Transformer Inspector Review Status In Process Next Review Type Continued Stay Review
--- NOTE | 2022-03-26 14:08 | PT.IIE ---
Surgical History (Last Updated 03/26/22 @ 04:00 by Daphne Cabrera [facility]) History of permanent cardiac pacemaker placement Medical History (Last Updated 03/26/22 @ 04:00 by Daphne Cabrera [facility]) BPH (benign prostatic hyperplasia) Chronic anticoagulation Osteoporosis Physical Therapy Inpatient Evaluation/Re-Eval M1 PT/OT-IP Prior Functional Status Start: 03/26/22 07:58 Freq: NEEDED Status: Active Protocol: Document 03/26/22 14:34 CGR (Rec: 03/26/22 14:59 R [id number]) Medical Review Prior Functional Status Medical History Reviewed Yes Communication Pt is an effective verbal communicator but is [place] and wears hearing aids. Mobility and Gait Pt was MOD I using a rollator at baseline but states that he was walking short distances without it prior to his most recent fall. Pt has hx of multiple falls. Activities of Daily Living and IADL's Pt was MOD I for dressing but has assist with cleaning, cooking, and bathing. 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 Social History Household Members none,other Living Arrangements House Number of Floors (Floors) One Floor Number of Stairs To Enter/Railing? 3-4 steps to enter with B wide railings. Home Environment Standard Height Toilet,Walk in Shower Home Equipment Four Wheel Walker,Shower Seat with Backrest,Hand Held Shower ,Grab Bars In Shower Employment Status Retired Additional Social History Comment Pt's son lives in [place]. M1 PT/OT-IP Prior Functional Status Start: 03/26/22 14:33 Freq: NEEDED Status: Active Protocol: Document 03/26/22 14:34 CGR (Rec: 03/26/22 14:59 CGR [id number]) Medical Review Prior Functional Status Medical History Reviewed Yes Communication Pt is an effective verbal communicator but is [place] and wears hearing aids. Mobility and Gait Pt was MOD I using a rollator at baseline but states that he was walking short distances without it prior to his most recent fall. Pt has hx of multiple falls. Activities of Daily Living and IADL's Pt was MOD I for dressing but has assist with cleaning, cooking, and bathing. 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 Social History Household Members none,other Living Arrangements House Number of Floors (Floors) One Floor Number of Stairs To Enter/Railing? 3-4 steps to enter with B wide railings. Home Environment Standard Height Toilet,Walk in Shower Home Equipment Four Wheel Walker,Shower Seat with Backrest,Hand Held Shower ,Grab Bars In Shower Employment Status Retired Additional Social History Comment Pt's son lives in [place]. M2 PT-IP Current Condition Start: 03/26/22 07:58 Freq: NEEDED Status: Active Protocol: Document 03/26/22 14:08 AW (Rec: 03/26/22 15:48 AW [id number]) Physical Therapy Current Condition Current Condition Evaluation Date 03/26/22 Treatment Diagnosis falls, spinal compression fractures; impaired mobility and gait Onset Date 03/25/22 M3 PT-IP Subjective Start: 03/26/22 07:58 Freq: NEEDED Status: Active Protocol: Document 03/26/22 14:08 AW (Rec: 03/26/22 15:48 AW [id number]) Subjective Physical Therapy Visit Type Type Initial Evaluation Visit Start Time 13:45 Visit Stop Time 14:08 Total Visit Minutes 23 Notes Per hospitalist physician, pt is no longer NPO as ortho does not plan surgical intervention. Hospitalist cleared pt for mobility. Pt seen together with OT Physical Therapy Visit Comments Patient Comments Pt is willing to participate with therapies. Therapy Pain Assessment Pain When Pain Assessed During Mobility Pain Present Pain Present Pain Reported Location back Intensity 5 Scale Used Numeric (0 - 10) Pain Behaviors Facial Grimacing,[place] Pain Management Techniques Modification of Treatment,Re- positioning M4 PT-IP Mobility and Gait Start: 03/26/22 07:58 Freq: NEEDED Status: Active Protocol: Document 03/26/22 14:08 AW (Rec: 03/26/22 15:48 AW [id number]) PT-Bed Mobility Assessment Rolling Type of Rolling Log Rolling,Roll to Right Level of Assist Minimal Assistance Supine to Sit Supine to Sit Minimal Assistance Scooting Scooting to Edge of Bed Standby Assistance PT-Transfer Assessment Sit to and From Stand Sit to and from Stand Standby Assistance Equipment Transfer Assistive Device Gait Belt,Front Wheeled Walker Orthotic/Prosthetic Devices or Brace: No Transfers Transfer Destination Chair Transfer Technique ambulated with FWW Transfer Ability Level of Assist Standby Assistance Comments Mobility Comments Pt was able to log roll to his right with cues and min assist. After sitting up EOB, pt needed no more than SBA for sit to stand and transfers, CGA for ambulation with FWW. When pt transferred to the chair, he slid down into slightly slumped position and stated it was the most comfortable position for him. Left pt with call light in reach and chair alarm on for safety. Gait Assessment Gait Gait Assistance Required: Standby Assistance,Contact Guard Assist Distance (Feet) 40 Assistive Devices Assistive Device Gait Belt,Front Wheeled Walker Orthotic/Prosthetic Devices or Brace: No Gait Deviations General Gait Pattern Antalgic,Decreased Stride Length,Decreased Feet Clearance,Flexed Trunk Factors Limiting Gait Function Factors Limiting Gait Function Decreased Activity Tolerance, Decreased Strength,Limited Range of Motion,Pain,Poor Balance Comments Gait Comments Gait was notable for high steppage (R>L) which may increase his falls risk. Stair Climbing Assessment Comments Stair Climbing Comments Not assessed. PT-Balance Assessment Sitting Balance and Reactions Static Sitting Balance Ability Good Dynamic Sitting Balance Ability Good Standing Balance and Reactions Static Standing Balance Ability Good Dynamic Standing Balance Ability Fair Device Used FWW M5 PT-IP Objective Assessments Start: 03/26/22 07:58 Freq: NEEDED Status: Active Protocol: Document 03/26/22 14:08 AW (Rec: 03/26/22 15:48 AW [id number]) Orientation Orientation/Cognition Level of Alertness Alert Orientation Name,Day of Week,Place, Situation Language Function Ability Hard of Hearing Safety Awareness Decreased Safety Awareness Gross Range of Motion Lower Extremity ROM Assessment Within Functional Limits Strength Lower Extremity Strength Hip 4/5 Knee 4+5 Ankle 4+/5 DF Coordination Assessment Assessment Foot Tapping Test Normal Performance Sensation Assessment Sensation Gross Sensation WNL Muscle Tone Muscle Tone WNL Yes M6 PT-IP Treatment Start: 03/26/22 07:58 Freq: NEEDED Status: Active Protocol: Document 03/26/22 14:08 AW (Rec: 03/26/22 15:48 AW [id number]) Physical Therapy Treatment Education Education Provided Safety M7 PT-IP Assessment and Plan Start: 03/26/22 07:58 Freq: NEEDED Status: Active Protocol: Document 03/26/22 14:08 AW (Rec: 03/26/22 15:48 AW [id number]) PT Summary Assessment and Plan Potential Rehabilitation Potential Good Status of Condition at Evaluation Evolving Summary Impairments Pain,Strength,Balance,Bed Mobility,Transfers,Gait Assessment Summary Celso is an 86 yo man admitted with worsening back pain after falls in the past month. He has multiple spinal compression fractures of varying ages as well as left clavicle fracture and rib fractures. PLOF: Pt states he is modified independent for mobility with use of 4WW. He lives alone but has caregiver support twice daily seven days per week. He gets assist with cooking, cleaning, and bathing. CLOF: Pt is likely near his functional baseline but would benefit from further acute PT to reinforce spinal precautions, progress gait distance with 4WW, and complete stair training. He may benefit from outpatient PT to improve his balance and safety awareness. Goals Bed Mobility Goal Independent Transfer Goal Independent,Four Wheeled Walker Gait Goal Independent,Four Wheel Walker Gait Distance 200 Other Goals - up/down 4 steps with unilateral rail SBA Days to Meet Goals 2 Frequency of Treatment Frequency Of Treatment Once a Day Treatment Plan Physical Therapy Treatment Plan Bed Mobility Training,Transfer Training,Gait Training, Therapeutic Exercise,Balance Retraining,Discharge Planning, Hot or Cold Pack,Neuromuscular Re-ed Precautions Lumbar Precautions Log Roll,No Twisting,Limit Bending,Lifting Restriction of 10 lbs Other Precautions falls risk Recommendations To Nursing Amount of Assist Needed Standby Assistance,1 Person Assist Discharge Recommendations PT Discharge Recommendations Home with Assistance, Outpatient PT Transportation Needs at Discharge Private Vehicle
--- NOTE | 2022-03-26 14:09 | OT.IP.EVAL ---
Past Medical History (Last Updated 03/26/22 @ 04:00 [facility] BPH (benign prostatic hyperplasia) Chronic anticoagulation Osteoporosis Surgical History (Last Updated 03/26/22 @ 04:00 [facility] History of permanent cardiac pacemaker placement Occupational Therapy Inpatient Evaluation/Re-Eval M1 PT/OT-IP Prior Functional Status Start: 03/26/22 07:58 Freq: NEEDED Status: Active Protocol: Document 03/26/22 14:34 CGR (Rec: 03/26/22 14:59 R [id number]) Medical Review Prior Functional Status Medical History Reviewed Yes Communication Pt is an effective verbal communicator but is [place] and wears hearing aids. Mobility and Gait Pt was MOD I using a rollator at baseline but states that he was walking short distances without it prior to his most recent fall. Pt has hx of multiple falls. Activities of Daily Living and IADL's Pt was MOD I for dressing but has assist with cleaning, cooking, and bathing. 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 Social History Household Members none,other Living Arrangements House Number of Floors (Floors) One Floor Number of Stairs To Enter/Railing? 3-4 steps to enter with B wide railings. Home Environment Standard Height Toilet,Walk in Shower Home Equipment Four Wheel Walker,Shower Seat with Backrest,Hand Held Shower ,Grab Bars In Shower Employment Status Retired Additional Social History Comment Pt's son lives in [place]. M1 PT/OT-IP Prior Functional Status Start: 03/26/22 14:33 Freq: NEEDED Status: Active Protocol: Document 03/26/22 14:34 CGR (Rec: 03/26/22 14:59 R [id number]) Medical Review Prior Functional Status Medical History Reviewed Yes Communication Pt is an effective verbal communicator but is [place] and wears hearing aids. Mobility and Gait Pt was MOD I using a rollator at baseline but states that he was walking short distances without it prior to his most recent fall. Pt has hx of multiple falls. Activities of Daily Living and IADL's Pt was MOD I for dressing but has assist with cleaning, cooking, and bathing. 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 Social History Household Members none,other Living Arrangements House Number of Floors (Floors) One Floor Number of Stairs To Enter/Railing? 3-4 steps to enter with B wide railings. Home Environment Standard Height Toilet,Walk in Shower Home Equipment Four Wheel Walker,Shower Seat with Backrest,Hand Held Shower ,Grab Bars In Shower Employment Status Retired Additional Social History Comment Pt's son lives in [place]. M2 OT-IP Current Condition Start: 03/26/22 14:33 Freq: Status: Active Protocol: Document 03/26/22 14:34 CGR (Rec: 03/26/22 14:59 CGR [id number]) Occupational Therapy Current Condition Current Condition Evaluation Date 03/26/22 Treatment Diagnosis back pain, SOB, Afib cardioverted in ER, global weakness Diagnosis Onset Date 03/25/22 M3 OT- IP Subjective and Pain Start: 03/26/22 14:33 Freq: Status: Active Protocol: Document 03/26/22 14:34 CGR (Rec: 03/26/22 14:59 CGR [id number]) OT- Subjective Occupational Therapy Visit Type Type Initial Evaluation Visit Start Time 13:41 Visit Stop Time 14:09 Total Visit Minutes 28 Notes co-treat with P.T. OT Pain Assessment Pain When Pain Assessed During Mobility Pain Present Pain Present Pain Reported Location back Intensity 4 Scale Used Numeric (0 - 10) Management Techniques Distraction,Modification of Treatment,Re-positioning, Timing of Activity with Medications M4 OT- IP ADL's Start: 03/26/22 14:33 Freq: Status: Active Protocol: Document 03/26/22 14:34 CGR (Rec: 03/26/22 14:59 CGR [id number]) OT KVV-Move-Cinlbug General Evaluation Self-Feeding Ability Independent Comments OT Self-Feeding Comments eating lunch when OT entered. OT ADL-Grooming Comments OT Grooming Comments Pt declined OT ADL-Oral Care Comments Oral Care Comments Pt declined OT ADL-Dressing Comments OT Dressing Comments not performed OT ADL-Toileting General Evaluation Toileting Ability Independent Comments OT Toileting Comments attempted to stand for urination. Educated pt on use of walker over the toilet for increased stability. Pt was unable to void and returned to chair. OT ADL-Bathing Comments OT Bathing Comments not performed M5 OT- IP IADL's Start: 03/26/22 14:33 Freq: Status: Active Protocol: Document 03/26/22 14:34 CGR (Rec: 03/26/22 14:59 CGR [id number]) OT-Instrumental Activities of Daily Living Deficits IADL Deficits Identified No Deficits Home Safety Awareness Awareness of Need for Assistance at Home Good Awareness Ability to Problem Solve Emergency Able to Problem Solve Situations Medication Management Medication Management Caregiver Administers Money Management Money Management Caregiver Provides Assistance Meal Preparation Meal Preparation Caregiver Provides Assist Agriculture Professor Agriculture Professor Caregiver Provides Assist Driving Driving Caregiver Provides Assist Driving Comments Pt's caregiver Dev does all driving. M6 OT- IP Functional Cognition Start: 03/26/22 14:33 Freq: Status: Active Protocol: Document 03/26/22 14:34 CGR (Rec: 03/26/22 14:59 CGR [id number]) Cognitive Factors Limiting Selfcare Function Cognitive Ability Level of Alertness Alert Patient Orientation Name,Age,Birthday,Month,Year, Day of Week,Place,Situation Attention Span Ability Capable of Focused Attention, Capable of Sustained Attention Ability to Follow Commands Able to Follow One Step Commands with Increased Time, Able to Follow One Step Commands with Repetition Cognitive Comments Cognitive Assessment Comments Pt may benefit from formal cog assessment. Pt is craig which impacts the appearance of his cognition. OT- Vision and Hearing OT- Hearing Assessment OT- Hearing Assessment Hearing Impaired,Use of Hearing Aids OT- Vision Assessment Vision History Cataracts Visual Acuity WFL,Glasses All The Time Visual Attentiveness WFL Occular Pursuits WFL Vision Assessment Comments Pt states he recently had cateract sx on his right eye. M7 OT- IP Mobility and Balance Start: 03/26/22 14:33 Freq: Status: Active Protocol: Document 03/26/22 14:34 CGR (Rec: 03/26/22 14:59 CGR [id number]) OT- Bed Mobility Assessment Rolling Type of Rolling Log Rolling,Roll to Right Level of Assistance Minimal Assistance Supine to Sit Supine to Sit Assist Minimal Assistance Scooting Scooting to Edge of Bed Independent OT-Transfer Assessment Sit to and From Stand Sit to and from Stand Standby Assistance Transfers Transfer Ability Standby Assistance Technique Transfer Destination Bed,Chair,Toilet Transfer Technique Stand Step Pivot Devices Transfer Assistive Devices Gait Belt,Front Wheeled Walker Comments Mobility Comments Pt needed verbal cues to perform log roll with assist, otherwise, pt with sba for all mobility. OT- Gait Assessment Gait Gait Assistance Required: Standby Assistance Assistive Devices Assistive Device Gait Belt,Front Wheeled Walker Comments Gait Ability Comments mobility around the room. OT- Balance Assessment Sitting Balance and Reactions Static Sitting Balance Ability Normal Dynamic Sitting Balance Ability Good M8 OT- IP Objective Assessments Start: 03/26/22 14:33 Freq: Status: Active Protocol: Document 03/26/22 14:34 CGR (Rec: 03/26/22 14:59 CGR [id number]) OT Gross Range of Motion Upper Extremity Range of Motion Assessment Within Functional Limits OT Strength Upper Extremity Strength Assessment Within Functional Limits OT- Coordination Assessment Upper Extremity Finger to Nose Test Within Functional Limits Finger Tapping Test Within Functional Limits OT-Muscle Tone Assessment Muscle Tone WNL Yes OT Sensation Assessment Edema Edema Absent M9 OT- IP Assessment and Plan Start: 03/26/22 14:33 Freq: Status: Active Protocol: Document 03/26/22 14:34 CGR (Rec: 03/26/22 14:59 CGR [id number]) OT Summary Assessment and Plan Potential Rehabilitation Potential Good Analytic Complexity at Evaluation Low Summary OT Impairments Pain,Balance Progress Towards Goals Progressing Toward Goals Assessment Summary Pt presents as a low complexity evaluation s/p admit for back pain. Pt appear to be close to his baseline but would benefit form further education and practice on log roll and LB dressing. Pt is likely at his baseline to discharge home with caregiver. Goals Grooming Goal Independent Dressing Goal Standby Assistance,Prosthodontist, Sock Aid Toileting Goal Independent Bathing Goal Minimal Assistance Toilet Transfer Goal Independent Shower Transfer Goal Minimal Assistance Days to Meet Goals 5 Frequency of Treatment Frequency Of Treatment Once a Day Treatment Plan OT Treatment Plan ADL Training,Functional Mobility,Patient/Family Education,Discharge Planning Other Treatment Recommendations and Next log roll, LB dressing. Treatment Focus Discharge Recommendations OT Discharge Recommendations Home Transportation Needs at Discharge Private Vehicle
[2022-03-26] MEDS: GABAPENTIN 300 MG CAPSULE PO ×2 (14:29→21:41)
[2022-03-26] MEDS: OXYCODONE IR 10 MG TABLET PO (14:29)
[2022-03-26 15:00] VITALS: BP 111/64; PULSE 61; RESP 17; TEMP 36.1; O2SAT 95
--- NOTE | 2022-03-26 16:25 | DIET.CONS ---
Dietary Consultation Note Admission Date: 03/25/2022 21:15 Assessment: 86y M admitted for afib with RVR, ustable gait (multiple lumbar compression fractures, osteoporosis) and malnutrition referred to nutrition for help with caloric intake. RD met with pt at bedside. Pt reports unintentional weight loss beginning 1y ago (-17% in 1y). Pt cannot attribute it to anything besides new onset xerostomia at the same time. Pt states dry mouth bothers him daily and limits his PO intake. Pt on three medications with side effects of xerostomia: bupropion, diltiazem, tamsulosin Pt reports meals being provided by live-in caregiver Dev. B: scrambled eggs, toast, banana D: homemade soup with meat and veggies Pt using some hard candies to help with salivation. Nutrition Focused Physical Exam shows temporal wasting, scooping of clavicle, pt reports being able to see his rib cage when unclothed. Per physician report, pt with multiple falls over last few months resulting in multiple lumbar compression fractures. Ht: 172.72 cm Wt: 68 kg (-17% in 1y) BMI: 22.8 (borderline low for age) UBW: 81.8kg Last BM: 03/23/22 (03/25/22 22:39) MNA: 11 Francis Score: 16 Diet: 03/26/22 Lunch General (Regular) Diet Diet Modifications: Labs: RBC 3.99 X10^6/uL (4.5-5.9) L 03/26/22 03:45 Hgb 13.6 g/dL (13.5-17.5) 03/26/22 03:45 Hct 39.2 % (41-53) L 03/26/22 03:45 Creatinine 0.65 mg/dL (0.66-1.25) L 03/26/22 03:45 Hemoglobin A1c 5.1 % (4.0-6.0) 03/25/22 16:40 Lactate 0.9 mmol/L (0.7-2.1) 03/25/22 18:20 NT-Pro-B Natriuret Pep 3110 pg/mL (<450) H 03/25/22 18:20 Nutrition Diagnosis: Moderate Malnutrition r/t difficulty with self-care and difficulty eating aeb pt with 17% unintentional weight loss in 1y, BMI 22.8 (borderline low for age), xerostomia resulting in poor appetite, pt on three medications with xerostomia side effects, pt lives in home with caregiver, MNA score 11. Interventions: 1. Counselled patient on strategies to manage xerostomia: frequent hydration, Biotene solution or lozenges, adding lemon juice or sour foods to spur salivary production. 2. Educated pt on effective snacks to help support weight maintenance. Pt would benefit from 5# weight gain to retain BMI>23. Pt will start eating peanut butter or cheese on crackers, drink protein drinks or chocolate milk between meals. 3. Pt may benefit from medication review for xerostomia side effects. 4. Sending Chocolate Ensure bid to support nutrition status while hospitalized. Monitoring/Evaluations: POs Electronically Signed by: Shannon Danielle 03/26/22 16:25 Clinical Dietitian [address] [id number]
--- NOTE | 2022-03-26 17:11 | P.PN_ITS ---
Subjective Subjective Date Patient Seen: 03/26/22 Interval history: 86 M admitted with difficult to control pain as a result of multiple rib and lumbar fractures. He is doing well at rest today, has not ambulated with therapies yet. Denies fever, chills, chest pain, shortness of breath. Exam Vital Signs (past 8 hours): - 03/26/22 12:00 03/26/22 15:00 Temperature 97.8 F 97.0 F L Pulse Rate 71 61 Respiratory Rate 17 17 Blood Pressure 127/76 111/64 Pulse Oximetry 96 95 Oxygen Flow Rate 0 0 Oxygen Delivery Method Room Air Oxygen Flow Rate 0 Narrative Exam Narrative: General:? elderly male, in no distress at this time. HEENT:? Normocephalic, atraumatic, extraocular muscles intact, oral pharynx is c lear and mucous membranes are moist. Neck: supple and symmetric, trachea is midline, no cervical adenopathy. Lungs:? CTA b/l no wheezing rhonchi or rales. Cardio:?RRR no m/r/g. Abdomen: S NT ND. Musculoskeletal:? Muscle strength and tone are equal within normal limits, no deformity. Extremities: No edema or joint effusions. No cyanosis or clubbing. Skin:? Pale,? Warm to touch,dry and intact without rashes, ulcerations or petechiae.? Neuro:? Alert and orientated x3,? sensation to touch intact in all extremities, no gross deficits noted of cranial nerves. Suspect mild cognitive impairment Psych:? Patient has a well-kept appearance, appropriate affect, mental status attitude thought context and judgment are appropriate for age. Objective Labs Result Diagrams: 03/26/22 03:45 03/26/22 03:45 Labs: Laboratory Results - last 24 hr 03/25/22 03/25/22 03/25/22 16:40 16:40 16:40 WBC RBC Hgb Hct MCV MCH MCHC RDW Plt Count Neut % (Auto) Lymph % (Auto) [place] % (Auto) Eos % (Auto) Baso % (Auto) Neut # (Auto) Lymph # (Auto) [place] # (Auto) Eos # (Auto) Baso # (Auto) PT 17.4 H INR 1.5 H APTT 36 Sodium 139 Potassium 3.8 Chloride 106 Carbon Dioxide 23 BUN 9 Creatinine 0.80 Estimated GFR > 60 BUN/Creatinine Ratio 11.3 Glucose 89 Hemoglobin A1c 5.1 Lactate Calcium 9.0 Magnesium 1.9 Total Bilirubin 1.1 AST 32 ALT 27 Alkaline Phosphatase 108 Total Creatine Kinase < 20 L CK-MB (CK-2) TNP CK-MB (CK-2) Rel Index TNP Troponin I < 0.012 NT-Pro-B Natriuret Pep Total Protein 7.9 Albumin 3.7 Globulin 4.2 H Albumin/Globulin Ratio 0.9 L Triglycerides Cholesterol LDL Cholesterol, Calc HDL Cholesterol Lipase 169 Procalcitonin TSH Free T4 Urine Color Urine Appearance Urine pH Ur Specific [place] Urine Protein Urine Glucose (UA) Urine Ketones Urine Occult Blood Urine Nitrate Urine Bilirubin Urine Urobilinogen Ur Leukocyte Esterase Urine RBC Urine WBC Urine Bacteria Ur Culture Indicated? Micro UA Comment U Opiates 300ng/mL cut Ur Oxycodone Screen Urine Methadone Screen Ur Barbiturates Screen U Tricyclic Antidepress Ur Phencyclidine Scrn Ur Amphetamines Screen U Methamphetamines Scrn Ur MDMA Scrn (Ecstasy) U Benzodiazepines Scrn Urine Cocaine Screen U Marijuana (THC) Screen Ethyl Alcohol SARS-CoV-2 (PCR) 03/25/22 03/25/22 03/25/22 16:55 18:20 18:20 WBC RBC Hgb Hct MCV MCH MCHC RDW Plt Count Neut % (Auto) Lymph % (Auto) [place] % (Auto) Eos % (Auto) Baso % (Auto) Neut # (Auto) Lymph # (Auto) [place] # (Auto) Eos # (Auto) Baso # (Auto) PT INR APTT Sodium Potassium Chloride Carbon Dioxide BUN Creatinine Estimated GFR BUN/Creatinine Ratio Glucose Hemoglobin A1c Lactate Calcium Magnesium Total Bilirubin AST ALT Alkaline Phosphatase Total Creatine Kinase CK-MB (CK-2) CK-MB (CK-2) Rel Index Troponin I NT-Pro-B Natriuret Pep Total Protein Albumin Globulin Albumin/Globulin Ratio Triglycerides Cholesterol LDL Cholesterol, Calc HDL Cholesterol Lipase Procalcitonin TSH 8.95 H Free T4 1.09 Urine Color Urine Appearance Urine pH Ur Specific [place] Urine Protein Urine Glucose (UA) Urine Ketones Urine Occult Blood Urine Nitrate Urine Bilirubin Urine Urobilinogen Ur Leukocyte Esterase Urine RBC Urine WBC Urine Bacteria Ur Culture Indicated? Micro UA Comment U Opiates 300ng/mL cut Ur Oxycodone Screen Urine Methadone Screen Ur Barbiturates Screen U Tricyclic Antidepress Ur Phencyclidine Scrn Ur Amphetamines Screen U Methamphetamines Scrn Ur MDMA Scrn (Ecstasy) U Benzodiazepines Scrn Urine Cocaine Screen U Marijuana (THC) Screen Ethyl Alcohol < 10 SARS-CoV-2 (PCR) Negative 03/25/22 03/25/22 03/25/22 18:20 18:20 22:40 WBC RBC Hgb Hct MCV MCH MCHC RDW Plt Count Neut % (Auto) Lymph % (Auto) [place] % (Auto) Eos % (Auto) Baso % (Auto) Neut # (Auto) Lymph # (Auto) [place] # (Auto) Eos # (Auto) Baso # (Auto) PT INR APTT Sodium Potassium Chloride Carbon Dioxide BUN Creatinine Estimated GFR BUN/Creatinine Ratio Glucose Hemoglobin A1c Lactate 0.9 Calcium Magnesium Total Bilirubin AST ALT Alkaline Phosphatase Total Creatine Kinase CK-MB (CK-2) CK-MB (CK-2) Rel Index Troponin I 0.023 NT-Pro-B Natriuret Pep 3110 H Total Protein Albumin Globulin Albumin/Globulin Ratio Triglycerides Cholesterol LDL Cholesterol, Calc HDL Cholesterol Lipase Procalcitonin TSH Free T4 Urine Color Urine Appearance Urine pH Ur Specific [place] Urine Protein Urine Glucose (UA) Urine Ketones Urine Occult Blood Urine Nitrate Urine Bilirubin Urine Urobilinogen Ur Leukocyte Esterase Urine RBC Urine WBC Urine Bacteria Ur Culture Indicated? Micro UA Comment U Opiates 300ng/mL cut Ur Oxycodone Screen Urine Methadone Screen Ur Barbiturates Screen U Tricyclic Antidepress Ur Phencyclidine Scrn Ur Amphetamines Screen U Methamphetamines Scrn Ur MDMA Scrn (Ecstasy) U Benzodiazepines Scrn Urine Cocaine Screen U Marijuana (THC) Screen Ethyl Alcohol SARS-CoV-2 (PCR) 03/26/22 03/26/22 03/26/22 03:45 03:45 03:45 WBC 9.0 RBC 3.99 L Hgb 13.6 Hct 39.2 L MCV 98.1 MCH 34.0 MCHC 34.6 RDW 14.4 Plt Count 191 Neut % (Auto) 67.5 Lymph % (Auto) 17.8 L [place] % (Auto) 11.9 Eos % (Auto) 1.8 L Baso % (Auto) 1.0 Neut # (Auto) 6100 Lymph # (Auto) 1600 [place] # (Auto) 1100 H Eos # (Auto) 200 Baso # (Auto) 100 PT 17.7 H INR 1.5 H APTT Sodium Potassium Chloride Carbon Dioxide BUN Creatinine Estimated GFR BUN/Creatinine Ratio Glucose Hemoglobin A1c Lactate Calcium Magnesium Total Bilirubin AST ALT Alkaline Phosphatase Total Creatine Kinase CK-MB (CK-2) CK-MB (CK-2) Rel Index Troponin I 0.014 NT-Pro-B Natriuret Pep Total Protein Albumin Globulin Albumin/Globulin Ratio Triglycerides Cholesterol LDL Cholesterol, Calc HDL Cholesterol Lipase Procalcitonin TSH Free T4 Urine Color Urine Appearance Urine pH Ur Specific [place] Urine Protein Urine Glucose (UA) Urine Ketones Urine Occult Blood Urine Nitrate Urine Bilirubin Urine Urobilinogen Ur Leukocyte Esterase Urine RBC Urine WBC Urine Bacteria Ur Culture Indicated? Micro UA Comment U Opiates 300ng/mL cut Ur Oxycodone Screen Urine Methadone Screen Ur Barbiturates Screen U Tricyclic Antidepress Ur Phencyclidine Scrn Ur Amphetamines Screen U Methamphetamines Scrn Ur MDMA Scrn (Ecstasy) U Benzodiazepines Scrn Urine Cocaine Screen U Marijuana (THC) Screen Ethyl Alcohol SARS-CoV-2 (PCR) 03/26/22 03/26/22 03/26/22 03:45 10:12 10:12 WBC RBC Hgb Hct MCV MCH MCHC RDW Plt Count Neut % (Auto) Lymph % (Auto) [place] % (Auto) Eos % (Auto) Baso % (Auto) Neut # (Auto) Lymph # (Auto) [place] # (Auto) Eos # (Auto) Baso # (Auto) PT INR APTT Sodium 138 Potassium 3.3 L Chloride 107 Carbon Dioxide 21 L BUN 9 Creatinine 0.65 L Estimated GFR > 60 BUN/Creatinine Ratio 13.8 Glucose 127 H Hemoglobin A1c Lactate Calcium 8.3 L Magnesium 1.8 Total Bilirubin AST ALT Alkaline Phosphatase Total Creatine Kinase CK-MB (CK-2) CK-MB (CK-2) Rel Index Troponin I NT-Pro-B Natriuret Pep Total Protein Albumin Globulin Albumin/Globulin Ratio Triglycerides 75 Cholesterol 104 L LDL Cholesterol, Calc 55 HDL Cholesterol 34 L Lipase Procalcitonin 0.05 TSH Free T4 Urine Color Yellow Urine Appearance Clear Urine pH 6.0 Ur Specific [place] 1.015 Urine Protein Negative Urine Glucose (UA) Negative Urine Ketones Trace H Urine Occult Blood Trace-intact Urine Nitrate Negative Urine Bilirubin Negative Urine Urobilinogen 0.2 Ur Leukocyte Esterase Negative Urine RBC None seen Urine WBC None seen Urine Bacteria None seen Ur Culture Indicated? Cult not indicated Micro UA Comment Microscopic normal U Opiates 300ng/mL cut Positive H Ur Oxycodone Screen Positive H Urine Methadone Screen Negative Ur Barbiturates Screen Negative U Tricyclic Antidepress Negative Ur Phencyclidine Scrn Negative Ur Amphetamines Screen Negative U Methamphetamines Scrn Negative Ur MDMA Scrn (Ecstasy) Negative U Benzodiazepines Scrn Negative Urine Cocaine Screen Negative U Marijuana (THC) Screen Negative Ethyl Alcohol SARS-CoV-2 (PCR) [facility] Medical History (Updated 03/26/22 @ 04:00 by MP Madrigal) BPH (benign prostatic hyperplasia) Chronic anticoagulation Osteoporosis Surgical History (Updated 03/26/22 @ 04:00 by MP Madrigal) History of permanent cardiac pacemaker placement Family History Mother Cancer Father No problems noted. Social History household members: none and other Smoking Status: Never smoker alcohol intake: current Assessment & Plan Assessment & Plan narrative: Celso Cuevas 86-year-old male slightly poor historian with history of AFib on Xarelto for many years, pacemaker placement for sick sinus syndrome, history of ventricular tachycardia, osteoporosis, frequent falls, previously seen for multiple lumbar compression fractures, clavicle fracture, rib fractures due to a ground level fall February of 2022. Presented to ED due to increasing SOB, fatigue, and worsening severe midline low back pain, that was impairing his ability to function home, safety, and manage ADLs. He was found to have multiple compression fractures, bilateral rib fractures, and a left clavicular fracture. 1. AFib with RVR, acute on chronic, on Xarelto, ventricular tachycardia, in termittent, acute on chronic, with implanted pacemaker, chronic, acute failure, present on admission- resolved -after arrival on the floor the patient has demonstrated a couple runs of V- tach, was asymptomatic, and pacer worked appropriately and resolved to sinus. -In ED patient was in AFib with RVR heart rates 143-130, and 2 episodes of V- tach 8-10 beat runs. Successfully cardioverted and continues to be in sinus rhythm. -it should be noted that Dr. Arora interrogated the pacemaker which did not register or acknowledge the atrial fibrillation with RVR, the runs of V-tach nor the cardioversion-patient should follow-up with Cardiology upon discharge for evaluation of pacemaker function. Tech did interrogate PPM in the ER and it appeared to be functioning normally per tech. 2. Unstable gait, frequent GLF falls, resulting in multiple pathologic compression fractures, lumbar, clavicle-left, ribs-bilaterally, with osteoporosis, acute on chronic, present on admission - continue PT / OT and attempt to work on pain control, especially with ambulation. Acute fracture seems to be in T11 per radiology reads 3. Moderate Malnutrition r/t difficulty with self-care and difficulty eating aeb pt with 17% unintentional weight loss in 1y, BMI 22.8 (borderline low for age), xerostomia resulting in poor appetite, pt on three medications with xerostomia side effects, pt lives in home with caregiver, MNA score 11. - appreciate dietary consultation 4. BPH, chronic, present on admission -continue tamsulosin 5. GERD, chronic, present on admission -continue omeprazole Code status: Full Surrogate decision maker: Son, patient also has a full-time caregiver Dev LUCY PCR: Negative DVT/VTE prophylaxis: Patient on Xarelto, SCDs only Disposition: Observation, likely home vs SNF in 1-2 days depending on mobility and pain control. Time Spent With Patient Critical Care time: I spent a total of [] minutes of critical care time on this patient's care today; this time is exclusive of procedural time.
[2022-03-26 19:55] VITALS: BP 130/68; PULSE 71; RESP 18; TEMP 36.2; O2SAT 98
--- NOTE | 2022-03-26 20:23 | P.PN_ITS ---
Subjective Subjective Date Patient Seen: 03/26/22 Time Patient Seen: 17:30 Interval history: Patient is an 86-year-old male with history of recent falls, 2 in February 2022. He has had ongoing lower back pain prior to these falls that has exacerbated since injury. He was diagnosed with new T11 compression fracture. Patient is seen today for orthopedic evaluation. He is sitting up in his chair with back pain well controlled with medication. He denies unsteady gait, weakness, saddle anesthesia, bowel/bladder incontinence, and lower extremity numbness/tingling. Exam Vital Signs (past 8 hours): - 03/26/22 15:00 Temperature 97.0 F L Pulse Rate 61 Respiratory Rate 17 Blood Pressure 111/64 Pulse Oximetry 95 Oxygen Flow Rate 0 Oxygen Delivery Method Room Air Oxygen Flow Rate 0 Narrative Exam Narrative: Awake alert and oriented x4. Strength and sensation intact to lower extremities bilaterally. Using walker and gait belt for ambulation. Resp Effort & Inspection: normal respiratory effort Cardio Other: Extremities well-perfused Objective Labs Result Diagrams: 03/26/22 03:45 03/26/22 03:45 Labs: Laboratory Results - last 24 hr 03/25/22 03/25/22 03/25/22 16:40 16:40 18:20 WBC RBC Hgb Hct MCV MCH MCHC RDW Plt Count Neut % (Auto) Lymph % (Auto) [place] % (Auto) Eos % (Auto) Baso % (Auto) Neut # (Auto) Lymph # (Auto) [place] # (Auto) Eos # (Auto) Baso # (Auto) PT INR Sodium Potassium Chloride Carbon Dioxide BUN Creatinine Estimated GFR BUN/Creatinine Ratio Glucose Hemoglobin A1c 5.1 Lactate Calcium Magnesium Troponin I NT-Pro-B Natriuret Pep Albumin 3.7 Globulin 4.2 H Albumin/Globulin Ratio 0.9 L Triglycerides Cholesterol LDL Cholesterol, Calc HDL Cholesterol Procalcitonin TSH Free T4 Urine Color Urine Appearance Urine pH Ur Specific [place] Urine Protein Urine Glucose (UA) Urine Ketones Urine Occult Blood Urine Nitrate Urine Bilirubin Urine Urobilinogen Ur Leukocyte Esterase Urine RBC Urine WBC Urine Bacteria Ur Culture Indicated? Micro UA Comment U Opiates 300ng/mL cut Ur Oxycodone Screen Urine Methadone Screen Ur Barbiturates Screen U Tricyclic Antidepress Ur Phencyclidine Scrn Ur Amphetamines Screen U Methamphetamines Scrn Ur MDMA Scrn (Ecstasy) U Benzodiazepines Scrn Urine Cocaine Screen U Marijuana (THC) Screen Ethyl Alcohol < 10 03/25/22 03/25/22 03/25/22 18:20 18:20 18:20 WBC RBC Hgb Hct MCV MCH MCHC RDW Plt Count Neut % (Auto) Lymph % (Auto) [place] % (Auto) Eos % (Auto) Baso % (Auto) Neut # (Auto) Lymph # (Auto) [place] # (Auto) Eos # (Auto) Baso # (Auto) PT INR Sodium Potassium Chloride Carbon Dioxide BUN Creatinine Estimated GFR BUN/Creatinine Ratio Glucose Hemoglobin A1c Lactate 0.9 Calcium Magnesium Troponin I NT-Pro-B Natriuret Pep 3110 H Albumin Globulin Albumin/Globulin Ratio Triglycerides Cholesterol LDL Cholesterol, Calc HDL Cholesterol Procalcitonin TSH 8.95 H Free T4 1.09 Urine Color Urine Appearance Urine pH Ur Specific [place] Urine Protein Urine Glucose (UA) Urine Ketones Urine Occult Blood Urine Nitrate Urine Bilirubin Urine Urobilinogen Ur Leukocyte Esterase Urine RBC Urine WBC Urine Bacteria Ur Culture Indicated? Micro UA Comment U Opiates 300ng/mL cut Ur Oxycodone Screen Urine Methadone Screen Ur Barbiturates Screen U Tricyclic Antidepress Ur Phencyclidine Scrn Ur Amphetamines Screen U Methamphetamines Scrn Ur MDMA Scrn (Ecstasy) U Benzodiazepines Scrn Urine Cocaine Screen U Marijuana (THC) Screen Ethyl Alcohol 03/25/22 03/26/22 03/26/22 22:40 03:45 03:45 WBC 9.0 RBC 3.99 L Hgb 13.6 Hct 39.2 L MCV 98.1 MCH 34.0 MCHC 34.6 RDW 14.4 Plt Count 191 Neut % (Auto) 67.5 Lymph % (Auto) 17.8 L [place] % (Auto) 11.9 Eos % (Auto) 1.8 L Baso % (Auto) 1.0 Neut # (Auto) 6100 Lymph # (Auto) 1600 [place] # (Auto) 1100 H Eos # (Auto) 200 Baso # (Auto) 100 PT INR Sodium Potassium Chloride Carbon Dioxide BUN Creatinine Estimated GFR BUN/Creatinine Ratio Glucose Hemoglobin A1c Lactate Calcium Magnesium Troponin I 0.023 0.014 NT-Pro-B Natriuret Pep Albumin Globulin Albumin/Globulin Ratio Triglycerides Cholesterol LDL Cholesterol, Calc HDL Cholesterol Procalcitonin TSH Free T4 Urine Color Urine Appearance Urine pH Ur Specific [place] Urine Protein Urine Glucose (UA) Urine Ketones Urine Occult Blood Urine Nitrate Urine Bilirubin Urine Urobilinogen Ur Leukocyte Esterase Urine RBC Urine WBC Urine Bacteria Ur Culture Indicated? Micro UA Comment U Opiates 300ng/mL cut Ur Oxycodone Screen Urine Methadone Screen Ur Barbiturates Screen U Tricyclic Antidepress Ur Phencyclidine Scrn Ur Amphetamines Screen U Methamphetamines Scrn Ur MDMA Scrn (Ecstasy) U Benzodiazepines Scrn Urine Cocaine Screen U Marijuana (THC) Screen Ethyl Alcohol 03/26/22 03/26/22 03/26/22 03:45 03:45 10:12 WBC RBC Hgb Hct MCV MCH MCHC RDW Plt Count Neut % (Auto) Lymph % (Auto) [place] % (Auto) Eos % (Auto) Baso % (Auto) Neut # (Auto) Lymph # (Auto) [place] # (Auto) Eos # (Auto) Baso # (Auto) PT 17.7 H INR 1.5 H Sodium 138 Potassium 3.3 L Chloride 107 Carbon Dioxide 21 L BUN 9 Creatinine 0.65 L Estimated GFR > 60 BUN/Creatinine Ratio 13.8 Glucose 127 H Hemoglobin A1c Lactate Calcium 8.3 L Magnesium 1.8 Troponin I NT-Pro-B Natriuret Pep Albumin Globulin Albumin/Globulin Ratio Triglycerides 75 Cholesterol 104 L LDL Cholesterol, Calc 55 HDL Cholesterol 34 L Procalcitonin 0.05 TSH Free T4 Urine Color Yellow Urine Appearance Clear Urine pH 6.0 Ur Specific [place] 1.015 Urine Protein Negative Urine Glucose (UA) Negative Urine Ketones Trace H Urine Occult Blood Trace-intact Urine Nitrate Negative Urine Bilirubin Negative Urine Urobilinogen 0.2 Ur Leukocyte Esterase Negative Urine RBC None seen Urine WBC None seen Urine Bacteria None seen Ur Culture Indicated? Cult not indicated Micro UA Comment Microscopic normal U Opiates 300ng/mL cut Ur Oxycodone Screen Urine Methadone Screen Ur Barbiturates Screen U Tricyclic Antidepress Ur Phencyclidine Scrn Ur Amphetamines Screen U Methamphetamines Scrn Ur MDMA Scrn (Ecstasy) U Benzodiazepines Scrn Urine Cocaine Screen U Marijuana (THC) Screen Ethyl Alcohol 03/26/22 10:12 WBC RBC Hgb Hct MCV MCH MCHC RDW Plt Count Neut % (Auto) Lymph % (Auto) [place] % (Auto) Eos % (Auto) Baso % (Auto) Neut # (Auto) Lymph # (Auto) [place] # (Auto) Eos # (Auto) Baso # (Auto) PT INR Sodium Potassium Chloride Carbon Dioxide BUN Creatinine Estimated GFR BUN/Creatinine Ratio Glucose Hemoglobin A1c Lactate Calcium Magnesium Troponin I NT-Pro-B Natriuret Pep Albumin Globulin Albumin/Globulin Ratio Triglycerides Cholesterol LDL Cholesterol, Calc HDL Cholesterol Procalcitonin TSH Free T4 Urine Color Urine Appearance Urine pH Ur Specific [place] Urine Protein Urine Glucose (UA) Urine Ketones Urine Occult Blood Urine Nitrate Urine Bilirubin Urine Urobilinogen Ur Leukocyte Esterase Urine RBC Urine WBC Urine Bacteria Ur Culture Indicated? Micro UA Comment U Opiates 300ng/mL cut Positive H Ur Oxycodone Screen Positive H Urine Methadone Screen Negative Ur Barbiturates Screen Negative U Tricyclic Antidepress Negative Ur Phencyclidine Scrn Negative Ur Amphetamines Screen Negative U Methamphetamines Scrn Negative Ur MDMA Scrn (Ecstasy) Negative U Benzodiazepines Scrn Negative Urine Cocaine Screen Negative U Marijuana (THC) Screen Negative Ethyl Alcohol PFSH Medical History (Updated 03/26/22 @ 04:00 by MP Madrigal) BPH (benign prostatic hyperplasia) Chronic anticoagulation Osteoporosis Surgical History (Updated 03/26/22 @ 04:00 by MP Madrigal) History of permanent cardiac pacemaker placement Family History Mother Cancer Father No problems noted. Social History household members: none and other Smoking Status: Never smoker alcohol intake: current Assessment & Plan Assessment & Plan narrative: Patient with repetitive falls, uses walker for assistance at home. He states that when he is fallen he has not been using his walker. Patient does not have significant weakness, numbness, tingling, or other neurologic symptoms. Patient's history and imaging were shared with orthopedic spine surgeon, Dr. Paz who recommended a TLSO brace. Patient states he already has a TLSO brace home, which he used for prior compression fractures. He was encouraged to wear the TLSO brace for the next 10-12 weeks and follow up at our office in 2 weeks with x-rays. Time Spent With Patient Critical Care time: I spent a total of [] minutes of critical care time on this patient's care toda y; this time is exclusive of procedural time.
[2022-03-26] MEDS: SENNOSIDES 8.6 MG TABLET 17.2 MG PO (21:41)
[2022-03-27 00:11] VITALS: BP 126/75; PULSE 64; RESP 18; TEMP 36.1; O2SAT 99
[2022-03-27] MEDS: ACETAMINOPHEN 325 MG TABLET 650 MG PO ×2 (01:09→12:45)
[2022-03-27 05:15] VITALS: BP 124/77; PULSE 70; RESP 18; TEMP 36.4; O2SAT 99
[2022-03-27 06:33] LABS: BUN Creatinine Ratio 11.5 (6-22); Blood Urea Nitrogen 7 mg/dL (9-20); Calcium 8.6 mg/dL (8.4-10.2); Carbon Dioxide 24 mmol/L (22-32); Chloride 106 mmol/L (98-107); Estimated Glomerular Filt Rate > 60 mL/min (>60); Glucose 77 mg/dL (80-110); HEMOLYSIS 15 (0-50); Magnesium 1.9 mg/dL (1.6-2.3); Potassium 3.4 mmol/L (3.4-5.1); Sodium 138 mmol/L (137-145)
[2022-03-27 08:46] VITALS: BP 125/75; PULSE 70; RESP 17; TEMP 36.2; O2SAT 99
[2022-03-27] MEDS: buPROPion SR 150 MG TAB PO (09:08)
[2022-03-27] MEDS: FINASTERIDE 5 MG TABLET PO (09:08)
[2022-03-27] MEDS: GABAPENTIN 300 MG CAPSULE PO (09:08)
[2022-03-27] MEDS: dilTIAZem CD 240 MG CAP PO (09:08)
[2022-03-27 11:59] VITALS: BP 110/64; PULSE 78; RESP 17; TEMP 36.3; O2SAT 96
--- NOTE | 2022-03-27 13:25 | PC.NURSE ---
Discharge note: VSS, IV discontinued by PCT, telemetry removed. No complaints of pain. Discussed discharge packet with patient, included increasing water intake and fiber with opiate usage, next medication times, stroke s/s, ensured all belongings were with patient. Patient transported to private vehicle via W/C by PCT.
--- NOTE | 2022-03-27 16:22 | CM.DPC ---
DCP Discharge Home Per MD, pt is medically stable to d/c home today and no identified barriers to discharge and no HH needs. Pt cleared for home and per RN no concerns. No HH referral made as pt does not meet homebound criteria. Plan: Patient discharged home via friend POV today and no further discharge planning needs. MIKE Mayer
--- NOTE | 2022-03-27 18:26 | P.DS_ITS ---
History of Present Illness History of Present Illness Date Patient Seen: 03/27/22 Chief complaint: Back pain Narrative: Per admitting provider, Celso Mason 86-year-old male slightly poor historian with history of AFib on Xarelto for many years, pacemaker placement for sick sinus syndrome, history of ventricular tachycardia, osteoporosis, BPH frequent falls, previously imaged & seen 03/08/22 for multiple lumbar compression fractures, clavicle fracture, rib fractures due to 2 ground level falls. presented to ED for worsening episodes of shortness of breath and fatigue but primarily due to severe midline low back pain. Which is now impacting his ability to function home, safety, and manage ADLs.? He denies any numbness, tingling, bowel or bladder incontinence, chest pain occasional shortness of breath which is normal for him.? In ED he had significant pain worse with range of motion and improves with rest and pain medication. At the time of admit patient was resting comfortably denied any pain at rest with no movement in bed. Patient denies headache, changes in vision, cough, congestion, ear eye discomfort, upper respiratory symptoms, fever, body aches, chills, abdominal pain, nausea, vomiting, diarrhea, urinary symptoms, fully empties bladder, hematemesis, hematuria, changes in bowel, melena, recent medication changes, exposure too or illness. On admit patient is stable temp 98.2?, BP 140/80, HR 90 sinus rhythm, RR 15, O2 saturation 98% on room air. Patient resting comfortably sleeping bed easily arousable. In ED patient was in AFib with RVR heart rates 143-30, and 2 episodes of V-tach 8 attend be runs. Was successfully cardioverted and continues to be in sinus rhythm. No WBC, mono 11,000. Stable electrolytes potassium 3.8, Mag 1.9, PT 17.4, INR 1.5, initial troponin negative, COVID negative, initial EKG in ED AFib with a rate of 136, post cardioversion sinus rhythm with sinus arrhythmia rate of [address] and T-wave changes, no comparison for labs diagnostics or EKG in system. CT of chest abdomen pelvis: Multiple lumbar compression fractures L1-L4, hepatic steatosis, noted gallstones nonobstructing, cholelithiasis, colonic diverticulosis. Patient was seen evaluated in imaging completed prior at another facility, and has seen Dr. Guerrero ortho regarding multiple fractures, is scheduled for follow-up on 03/26/2021. Chest x-ray radiology noted was a poor exam, document abnormal cardiopulmonary process but nothing further noted. Patient admitted for AFib with RVR, pacer on Xarelto, multiple healing lumbar compression fractures, bilateral rib fractures, left medial clavicle fracture unstable gait frequent falls. Dr. Tony in the ED noted a possible developing ileus, but no documented findings on imaging at this time. Dr. Bassett orthopedics consulted in ED does not feel that the patient requires surgical intervention, will evaluate tomorrow. Discharge Providers Provider Date of admission: 03/25/22 21:15 Discharge Date: 03/27/22 Consults: 03/25/22 21:50 Consult to Physician Routine Comment: Consulting Provider: Saira Bassett Reason for consultation: Multiple compression fractures Has provider been notified: Yes 03/25/22 21:59 Consult to Dietitian, Adult Routine Comment: Reason For Exam: bmi 22.8 Consult to Occupational Therapy Evaluate & Treat Comment: Multiple falls, comp FX lumbar, gait instability Physician Instructions: Evaluate and treat 03/25/22 22:00 Consult to Physical Therapy Evaluate & Treat Comment: Multiple falls, comp FX lumbar, gait instability Physician Instructions: Evaluate and Treat 03/25/22 23:08 Consult to Dietitian, Adult Routine Comment: Reason For Exam: MNA score = 11 Discharge provider: Yariel Meadows DO Summary Hospital Course Discharge Diagnosis: 1. AFib with RVR, acute on chronic, on Xarelto, ventricular tachycardia, intermittent, acute on chronic, with implanted pacemaker, chronic, acute failure, present on admission- resolved 2. Unstable gait, frequent GLF falls, resulting in multiple pathologic compression fractures, lumbar, clavicle-left, ribs-bilaterally, with osteoporosi s, acute on chronic, present on admission 3. Moderate Malnutrition 4. BPH, chronic, present on admission 5. GERD, chronic, present on admission Hospital Course: Celso Cuevas 86-year-old male slightly poor historian with history of AFib on Xarelto for many years, pacemaker placement for sick sinus syndrome, history of ventricular tachycardia, osteoporosis, frequent falls, previously seen for multiple lumbar compression fractures, clavicle fracture, rib fractures due to a ground level fall February of 2022.? Presented to ED due to increasing SOB, fatigue, and worsening severe midline low back pain, that was impairing his ability to function home, safety, and manage ADLs. He was found to have multiple compression fractures, bilateral rib fractures, and a left clavicular fracture. Given patient's presenting AFib with RVR, his pacemaker was interrogated in the emergency room and was found to be in good condition. There were their incid ence after admission to the hospital, and the patient had no presenting complaints. For his acute back pain, the patient was started on Tylenol, gabapentin, and opiates with improvement in his pain. He felt better than he had in a long time and did well with physical therapy. He was discharged home and outpatient follow-up with Orthopedic surgery is recommended. Patient was evaluated for moderate malnutrition, likely due to side effects of his cardiac medications causing dry mouth. Outpatient follow-up was recommended with his line rider, and dietary recommendations are appreciated. Time Spent with Patient Time spent: Greater than 30 minutes Exam Vital Signs (past 8 hours): - 03/27/22 11:59 Temperature 97.4 F L Pulse Rate 78 Respiratory Rate 17 Blood Pressure 110/64 Pulse Oximetry 96 Oxygen Flow Rate 0 Oxygen Delivery Method Room Air Oxygen Flow Rate 0 Narrative Exam Narrative: General:? elderly male, in no distress at this time. HEENT:? Normocephalic, atraumatic, extraocular muscles intact, oral pharynx is clear and mucous membranes are moist. Neck: supple and symmetric, trachea is midline, no cervical adenopathy. Lungs:? CTA b/l no wheezing rhonchi or rales. Cardio:?RRR no m/r/g. Abdomen: S NT ND. Musculoskeletal:? Muscle strength and tone are equal within normal limits, no deformity. Extremities: No edema or joint effusions. No cyanosis or clubbing. Skin:? Pale,? Warm to touch,dry and intact without rashes, ulcerations or petech iae.? Neuro:? Alert and orientated x3,? sensation to touch intact in all extremities, no gross deficits noted of cranial nerves. Suspect mild cognitive impairment Psych:? Patient has a well-kept appearance, appropriate affect, mental status attitude thought context and judgment are appropriate for age. Objective Labs Result Diagrams: 03/26/22 03:45 03/27/22 05:53 Labs: Laboratory Results - last 24 hr 03/27/22 05:53 Sodium 138 Potassium 3.4 Chloride 106 Carbon Dioxide 24 BUN 7 L Creatinine 0.61 L Estimated GFR > 60 BUN/Creatinine Ratio 11.5 Glucose 77 L Calcium 8.6 Magnesium 1.9 PFSH Medical History (Updated 03/26/22 @ 04:00 by MP Madrigal) BPH (benign prostatic hyperplasia) Chronic anticoagulation Osteoporosis Surgical History (Updated 03/26/22 @ 04:00 by MP Madrigal) History of permanent cardiac pacemaker placement Family History Mother Cancer Father No problems noted. Social History household members: none and other Smoking Status: Never smoker alcohol intake: current Discharge Plan Discharge Plan Patient Disposition: Home Provider Discharge Comment: You were admitted to the hospital with low back pain, improved with pain medication. You did well with therapy and will discharge home. Continue to take tylenol extra strength 1 pill twice daily, and new gabapentin was prescribed. Use opiates for as needed pain relief at home. Follow up with PCP for pain management in the next 1-2 weeks and for future prescriptions. Continue to wear TLSO brace at home, follow up with orthopedic surgeon in 2 weeks. Discharge orders & Medications Prescriptions: New gabapentin [Neurontin] 300 mg Capsule 300 mg PO TID 30 Days Qty: 90 0RF oxycodone 5 mg tablet 5 - 10 mg PO Q6H PRN (Reason: Pain, Severe (7-10)) 7 Days Qty: 40 0RF Continued bupropion HCl 150 mg Tablet Sustained-Release 12 Hr 150 mg PO BID diltiazem HCl 240 mg Capsule,Extended Release 24hr 240 mg PO DAILY omeprazole 20 mg Capsule,Delayed Release(Dr/Ec) 20 mg PO DAILY Xarelto 20 mg Tablet 20 mg PO QPM Rx Instructions: must administer with evening meal tamsulosin 0.4 mg Capsule 0.4 mg PO BEDTIME finasteride 5 mg Tablet 5 mg PO DAILY dorzolamide-timolol 22.3-6.8 mg/mL Drops 1 drp OPHTHALMIC (EYE) DAILY Rx Instructions: right eye Lumigan 0.01 % Drops 1 drp OPHTHALMIC (EYE) DAILY Rx Instructions: right eye triamcinolone acetonide 0.1 % Ointment 1 applic TOPICAL DAILY PRN (Reason: Dry Skin) vitamin B complex [B Complex-Vitamin B12] Tablet 1 tab PO DAILY Diet/Activity/Treatments Diet: Diet as Tolerated Activity: As tolerated Visit Report/Discharge Packet Instructions: Low Back Pain, DI for Prescription Opioid Use Stand Alone Forms: Patient Portal/API, Stroke Signs & Symptoms Discharge Data Attending Provider: Daphne aCbrera
== END 2022-03-27 13:25 | disposition home or self-care (01) ==
LOC: ED 21:09 → AC 21:17
PROVIDERS: Admitting Provider Nurse Practitioner Family; Emergency Provider Emergency Medicine; Visit Provider Nurse Practitioner Family
DX: R06.02 Shortness of breath (principal); M54.9 Dorsalgia, unspecified; Z95.0 Presence of cardiac pacemaker; Z79.01 Long term (current) use of anticoagulants; I48.91 Unspecified atrial fibrillation; S22.080A Wedge compression fracture of T11-T12 vertebra, initial encounter for closed fracture; R29.6 Repeated falls; Z91.81 History of falling; K21.9 Gastro-esophageal reflux disease without esophagitis; N40.0 Benign prostatic hyperplasia without lower urinary tract symptoms; E46 Unspecified protein-calorie malnutrition; Z68.22 Body mass index [BMI] 22.0-22.9, adult; Z20.822 Contact with and (suspected) exposure to COVID-19
CPT/HCPCS: 36415; 71045; 71260; 74177; 80048; 80053; 80061; 80305; 80320; 81001; 82550; 82962; 83036; 83605; 83690; 83735; 83880; 84145; 84439; 84443; 84484; 85025; 85610; 85730; 87635; 92960; 93005; 93306; 96374; 97161; 97165; 97535; 99152; 99285; 99291; C9803; G0378; J1170; J2704; Q9967

== ENCOUNTER 2022-05-05 12:49 | Emergency (ER) | payer MEDICARE, SELFPAY ==
[2022-03-25 22:39] VITALS: BMI 22.8
[2022-05-05] VITALS (8 sets, daily range): BP systolic 112–129; BP diastolic 63–82; PULSE 72–84; RESP 16–18; TEMP 36.1; O2SAT 96–99; BMI 22.8
--- NOTE | 2022-05-05 13:16 | DI.CT.S_ITS ---
PROCEDURE: CT HEAD/BRAIN WO CON INDICATIONS: fall hit head on xeralto, hematoma TECHNIQUE: Noncontrast 4.5 mm thick angled axial sections acquired from the foramen magnum to the vertex, with coronal and sagittal reformats. For radiation dose reduction, the following was used: automated exposure control, adjustment of mA and/or kV according to patient size. COMPARISON: None. FINDINGS: Image quality: Excellent. CSF spaces: Basal cisterns are patent. No extra-axial fluid collections. Ventricles are normal in size and shape. Brain: No midline shift. No intracranial masses or hemorrhage. Lemus-white matter interface is normal. Moderate cerebral and cerebellar volume loss with multifocal white matter chronic ischemic change noted. Atherosclerotic calcification noted associated with cavernous segments of both internal carotid arteries. Benign left frontal coarse calcification measures less than 5 mm, probably reflects prior granulomatous disease or old trauma Skull and face: Calvarium and visualized facial bones are intact, without suspicious lesions. Right occipital scalp hematoma Sinuses: Visualized sinuses and mastoids are clear. IMPRESSION: Moderate atrophy and chronic ischemic change acute hemorrhage or mass effect Right occipital scalp hematoma without skull fracture Approved by: Romeo Zavala M.D. on 05/05/2022 at 13:53
--- NOTE | 2022-05-05 13:17 | DI.CT.S_ITS ---
PROCEDURE: CT LUMBAR SPINE WO CON INDICATIONS: lower back pain after fall TECHNIQUE: Noncontrast 3 mm thick sections acquired from the T12 level to the sacrum. Sagittal and coronal reformats were constructed. For radiation dose reduction, the following was used: automated exposure control. COMPARISON: [facility], CT, CT LUMBAR SPINE WO CON, 03/08/2022, 13:31. FINDINGS: Compression fractures at L1, L2, L3 and L4 are again noted unchanged from prior exam. Retropulsed fracture fragment at L1 results in moderate central stenosis, also stable. Generalized decreased osseous mineralization present. Two degenerative spondylolisthesis present at L2-3 and L5-S1. Diffusely hypertrophic facet joints. IMPRESSION: No change the prior exam 03/08/2022. 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 on 05/05/2022 at 14:18
--- NOTE | 2022-05-05 15:39 | ED_ITS ---
HPI - Back Pain/Injury General Chief Complaint: Back Pain/Injury Stated Complaint: Low back pain Time Seen by Provider: 05/05/22 15:29 Source: patient, RN notes reviewed and old records reviewed Mode of arrival: Ambulatory Limitations: no limitations History of Present Illness HPI Narrative: 87-year-old male with history of AFib on Xarelto, prior pacemaker placement for sick sinus syndrome, history of ventricular tachycardia who presents with ground level fall. Patient states tripped and fell. He states he has increased pain in his lower back. He has chronic back pain with known lumbar compression fractures with retropulsed fragment. Patient states he actually had injection in the last week which is typically helpful to his back by Dr. Khan. Patient states pain is localized to the same area. A little bit more on the right. It does not radiate down his legs. No paresthesias, no numbness or tingling. He does not appreciate weakness. Been able to ambulate since the fall. States fall occurred yesterday. He uses a walker normally at home. He did strike his head. He is on Xarelto. Does have an abrasion on the left side of his neck. He is unsure of his tetanus status. He denies headache, neck pain, no chest pain or shortness of breath. He complains only of lower lumbar pain. He denies any bladder or fecal incontinence. No other GI or urinary symptoms. He normally takes a 1000 mg of Tylenol 3 times daily and gabapentin 400 mg 3 times daily for his chronic back pain. States his last dose was at 8:00 a.m. he was due to have a dose at 2:00 p.m. but missed it 2nd being in the emergency department. He follows with Dr. Paz for spinal surgery and Dr. Khan for injections, intervention. Patient states he was told he told he could potentially have a another injection this upcoming week. Related Data Home Medications Medication Instructions Recorded Confirmed bimatoprost 0.01 % eye drops 1 drp ophthalmic (eye) DAILY 03/25/22 03/25/22 (Evert) bupropion HCl 150 mg tablet,12 hr 150 mg PO BID 03/25/22 03/25/22 sustained-release diltiazem HCl 240 mg 240 mg PO DAILY 03/25/22 03/25/22 capsule,extended release 24 hr dorzolamide 22.3 mg-timolol 6.8 1 drp ophthalmic (eye) DAILY 03/25/22 03/25/22 mg/mL eye drops finasteride 5 mg tablet 5 mg PO DAILY 03/25/22 03/25/22 omeprazole 20 mg capsule,delayed 20 mg PO DAILY 03/25/22 03/25/22 release rivaroxaban 20 mg tablet (Xarelto) 20 mg PO QPM 03/25/22 03/25/22 tamsulosin 0.4 mg capsule 0.4 mg PO BEDTIME 03/25/22 03/25/22 triamcinolone acetonide 0.1 % 1 applic topical DAILY PRN Dry Skin 03/25/22 03/25/22 topical ointment vitamin B complex (B 1 tab PO DAILY 03/25/22 03/25/22 Complex-Vitamin B12 tablet) Previous Rx's Medication Instructions Recorded gabapentin 400 mg capsule 400 mg PO TID #30 caps 05/05/22 lidocaine 5 % topical patch 1 patch topical DAILY PRN pain #30 05/05/22 ea tramadol 50 mg tablet 50 mg PO Q8H PRN pain #10 tabs 05/05/22 Allergies Allergy/AdvReac Type Severity Reaction Status Date / Time No Known Drug Allergies Allergy Verified 05/05/22 13:09 Review of Systems Review of Systems ROS Unobtainable: All systems reviewed & are unremarkable except as noted in HPI and below Patient History Medical History BPH (benign prostatic hyperplasia) Chronic anticoagulation Osteoporosis Surgical History History of permanent cardiac pacemaker placement Family History Mother Cancer Father No problems noted. Social History household members: none and other Smoking Status: Never smoker alcohol intake: current Smoking Status: Never smoker alcohol intake frequency: 0-2 drinks per day Substance Use Type: does not use and prescription drug Exam Narrative Exam Narrative: GEN: Patient appears in mild distress. HEAD: Patient has right occipital scalp hematoma, no raccoon/Snyder sign. NECK: Nontender, painless range of motion, trachea midline Negative for Nexus criteria, there is no midline line tenderness, distracting injury, altered mental status, neuro deficit, recent EtOH. EYES: PERRLA, EOMI ENT: External inspection normal, trachea is midline, TM's are normal no hemotypanum, Nares are clear, no septal hematoma, no dental or oral injury, airway is normal and with normal occlusion, No bony tenderness, patient has not abrasion on the left side his neck with scabbing that is approximately 1 x 2 cm in length. RESP: Chest is nontender and has symmetric movement, no ecchymosis, breath sounds are normal no crackles, wheezes or rales CVS: Heart sounds are normal, no murmur noted, No JVD. ABG/GI: Nontender, soft, normal bowel sounds, no distention, no organomegaly, pelvic rock is negative NEURO: Oriented AOx3, neuro is grossly intact, sensation and motor is normal all 4 extremities moving, cranial nerves II through XII are intact, GCS is 15 PSYCH: Normal mood and affect SKIN: Intact, warm and dry, no crepitus and without decubitus BACK: No CVA tenderness, no vertebral tenderness, no step-off's, no crepitus EXT: Atraumatic, hips are nontender, bilateral pedal edema. Patient has no pain with leg lift bilaterally. 5/5 muscle strength. Sensation and touch bilateral upper and lower extremities. No saddle anesthesia. Initial Vital Signs Initial Vital Signs: Vital Signs Temperature 97 F L 05/05/22 13:03 Pulse Rate 72 05/05/22 13:03 Respiratory Rate 16 05/05/22 13:03 Blood Pressure 112/68 05/05/22 13:03 Pulse Oximetry 98 05/05/22 13:03 Oxygen Delivery Method 05/05/22 13:[address] Head Rule Patient on blood thinners: Yes Age greater or equal to 65 years: Yes GCS [place] coma scale eye opening: Spontaneous [place] coma scale verbal response: Orientated [place] coma scale motor response: Obey commands [place] coma scale total score: 15 Nexus Score for C-Spine Focal Neurologic deficit present: No Midline spinal tenderness present: No Altered level of conciousness present: No Intoxication present: No Course Orders Ordered: ED Orders 05/05/22 13:16 CT head/brain wo con Stat 05/05/22 13:17 CT lumbar spine wo con Stat Discontinued Medications Acetaminophen (Acetaminophen 325 Mg Tablet) 975 mg PO NOW ONE Stop: 05/05/22 16:14 Last Admin: 05/05/22 16:34 Dose: 975 mg Documented By: NR Diphtheria/Tetanus/Acell Pertussis (Tet,Diph,Pertuss(Acell),Vac/Pf 0.5 Ml Syringe) 0.5 ml IM .ONCE ONE Stop: 05/05/22 16:16 Last Admin: 05/05/22 16:33 Dose: 0.5 ml Documented By: NR Gabapentin (Gabapentin 100 Mg Capsule) 400 mg PO TID ONE Stop: 05/05/22 16:15 Last Admin: 05/05/22 16:35 Dose: 400 mg Documented By: NR Lidocaine (Lidocaine Patch 1 Each Adh..Patch) 1 each TOP NOW ONE Stop: 05/05/22 16:14 Last Admin: 05/05/22 16:33 Dose: 1 each Documented By: NR Tramadol HCl (Tramadol 50 Mg Tablet) 50 mg PO NOW ONE Stop: 05/05/22 16:14 Last Admin: 05/05/22 16:34 Dose: 50 mg Documented By: NR Vital Signs Vital signs: Vital Signs - 8 hr 05/05/22 13:03 05/05/22 15:28 05/05/22 15:28 Temperature 97 F L Pulse Rate 72 83 Respiratory Rate 16 Blood Pressure 112/68 122/82 Pulse Oximetry 98 98 Oxygen Delivery Method Room Air 05/05/22 15:30 05/05/22 15:53 05/05/22 15:53 Temperature Pulse Rate 84 78 Respiratory Rate 18 Blood Pressure 116/75 Pulse Oximetry 99 97 Oxygen Delivery Method Room Air 05/05/22 15:59 05/05/22 16:00 05/05/22 16:00 Temperature Pulse Rate 78 74 Respiratory Rate Blood Pressure 120/74 Pulse Oximetry 97 97 Oxygen Delivery Method 05/05/22 16:30 05/05/22 16:31 05/05/22 16:31 Temperature Pulse Rate 75 75 Respiratory Rate Blood Pressure 129/63 Pulse Oximetry 96 96 Oxygen Delivery Method MDM - Back Pain/Injury Imaging Data CT scan - head: Radiologist's Impression: Moderate atrophy and chronic ischemic change. Moderate cerebral and Valium volume loss with multifocal white matter chronic ischemic change noted. Did benign left frontal coarse calcification measures less than 5 mm probably reflects prior granulomatous disease or old trauma. Right scalp occipital hematoma. Bones and visualized facial bones are intact. Lspine CT: Radiologist's Impression: Compression fracture at L1, L2, L3 and L4 again noted unchanged from prior exam. Retropulsed fragment fractures at L1 result in moderate central stenosis also stable. Generalized decreased osseous mineralization present. Two degenerative spondylolisthesis present at L2-L3 and L5 through S1. Diffusely hypertrophic facet joints. No change from prior exam 03/08/2022. Degenerative disease and arthropathy associated with stable severe central stenosis at L4-L5. MDM Narrative Medical decision making narrative: This is an 87-year-old male with acute on chronic lumbar back pain with no compression fractures and retropulsed fragment at L1. Patient had mechanical ground level fall has had increased pain. He is normally on Tylenol 3 times daily and gabapentin and had injection in his lower back in the past week. Patient has missed his most recent dose of medication. He does not have any acute red flag symptoms. His imaging is stable and with no acute neurologic changes is not felt to require emergent MRI. Patient has been able to ambulate at home since his fall he does normally use a walker encouraged to continue this. Plan increase his Tylenol to a 1000 mg 4 times daily, continue his gabapentin. Follow up with Dr. Khan for recheck. We will try a short course of tramadol to see if this is helpful. Patient and friends at bedside who were also caregivers part-time state that oxycodone makes him quite altered. We discussed narcotics only sparingly as this can cause mental status changes. We will also try lidocaine patch to see if this is helpful. Discharge Plan Departure Patient Disposition: Home Clinical Impression: Acute exacerbation of chronic low back pain Instructions: DI for Low Back Pain Activity Restrictions/Additional Instructions: Please follow-up with Dr. Khan and if needed Dr. Paz regarding your back. You may increase your Tylenol to a 1000 mg every 6 hours as needed for pain. Continue with your gabapentin 400 mg 3 times daily. You can use lidocaine patch to the affected area on her back as needed. If these are inadequate for your pain management you can add 1-2 tablets tramadol every 6 hours. This medication can make you sleepy do not drive, perform hazardous activities or make any major decisions while taking it. This medication will make you constipated please take a stool softener once to twice daily until stools are soft and regular. Prescription sent to [facility] in [place]. Please return for rapidly worsening symptoms, new numbness, weakness loss of sensation, loss of bowel or bladder control, urinary retention, inability to lift or move her leg or other new or concerning changes. Prescriptions: New lidocaine 5 % adhesive patch,medicated 1 patch topical DAILY PRN (Reason: pain) Qty: 30 0RF Rx Instructions: leave on most painful area for up to 12 hrs gabapentin 400 mg capsule 400 mg PO TID Qty: 30 0RF tramadol 50 mg tablet 50 mg PO Q8H PRN (Reason: pain) Qty: 10 0RF No Action bupropion HCl 150 mg Tablet Sustained-Release 12 Hr 150 mg PO BID diltiazem HCl 240 mg Capsule,Extended Release 24hr 240 mg PO DAILY omeprazole 20 mg Capsule,Delayed Release(Dr/Ec) 20 mg PO DAILY Xarelto 20 mg Tablet 20 mg PO QPM Rx Instructions: must administer with evening meal tamsulosin 0.4 mg Capsule 0.4 mg PO BEDTIME finasteride 5 mg Tablet 5 mg PO DAILY dorzolamide-timolol 22.3-6.8 mg/mL Drops 1 drp OPHTHALMIC (EYE) DAILY Rx Instructions: right eye Lumigan 0.01 % Drops 1 drp OPHTHALMIC (EYE) DAILY Rx Instructions: right eye triamcinolone acetonide 0.1 % Ointment 1 applic TOPICAL DAILY PRN (Reason: Dry Skin) vitamin B complex [B Complex-Vitamin B12] Tablet 1 tab PO DAILY Stand Alone Forms: Patient Portal/API
[2022-05-05] MEDS: TET,DIPH,PERTUSS(ACELL),VAC/PF 0.5 ML SYRINGE IM (16:33)
[2022-05-05] MEDS: LIDOCAINE PATCH 1 EACH ADH..PATCH TOP (16:33)
[2022-05-05] MEDS: TRAMADOL 50 MG TABLET PO (16:34)
[2022-05-05] MEDS: ACETAMINOPHEN 325 MG TABLET 975 MG PO (16:34)
[2022-05-05] MEDS: GABAPENTIN 100 MG CAPSULE 400 MG PO (16:35)
== END 2022-05-05 16:54 | disposition home or self-care (01) ==
PROVIDERS: Emergency Provider Emergency Medicine
DX: M54.50 Low back pain, unspecified (principal); W18.30XA Fall on same level, unspecified, initial encounter; Z79.01 Long term (current) use of anticoagulants; Z95.0 Presence of cardiac pacemaker; Z23 Encounter for immunization
CPT/HCPCS: 70450; 72131; 90471; 99284; 90715

== ENCOUNTER 2022-05-26 11:02 | Emergency (ER) | payer MEDICARE, SELFPAY ==
[2022-03-25 22:39] VITALS: BMI 22.8
[2022-05-26 11:30] VITALS: BP 117/69; PULSE 72; RESP 16; TEMP 36.6; O2SAT 100; BMI 22.9
--- NOTE | 2022-05-26 11:32 | DI.RAD.S_ITS ---
PROCEDURE: XR HIP W PEL IF DONE LT 2V INDICATIONS: fall , left hip pain TECHNIQUE: 2 views of the hip were acquired. COMPARISON: None. FINDINGS: Bones: No fractures or dislocations. No suspicious bony lesions. The visualized pelvic ring appears intact. Mild sclerosis of the acetabulum with osteophyte formation. Soft tissues: No suspicious soft tissue calcifications or masses. IMPRESSION: No fracture. Mild osteoarthritic changes of the hips. Dictated by: Isidoro Mckeon M.D. on 05/26/2022 at 11:02 Approved by: Isidoro Mckeon M.D. on 05/26/2022 at 11:03
--- NOTE | 2022-05-26 13:27 | ED_ITS ---
HPI - Fall General Chief Complaint: Fall Stated Complaint: extreme low back/hip pain left leg Time Seen by Provider: 05/26/22 13:26 Source: patient Mode of arrival: Wheelchair Limitations: no limitations History of Present Illness HPI Narrative: This is an 87-year-old male with history of AFib on Xarelto, prior pacemaker placement for sick sinus syndrome, history of V-tach presents with ground level fall. Patient had a fall. He states that he tripped losing his balance and falling onto a wooden box. Has pain in his left hip just below the trochanter. He states he was walking out for 2 or 3 days but has increasingly become painful. Patient has had chronic back pain with known lumbar compression fractures and retropulsed fragments he is had no numbness, tingling or weakness that he appreciates. He states he is able to lift his leg and is able to do so in the room. Patient states he did not strike his head he denies neck or back pain, no chest pain or shortness of breath, no other GI or urinary symptoms no retention, or fecal or urinary incontinence. Patient typically takes Tylenol 3 times daily as well as gabapentin. Patient has some bruising on his neck which he is from prior fall and not from today. He is accompanied by 2 friends who help and caregiver for him intermittently. Related Data Home Medications Medication Instructions Recorded Confirmed bimatoprost 0.01 % eye drops 1 drp ophthalmic (eye) DAILY 03/25/22 03/25/22 (Evert) bupropion HCl 150 mg tablet,12 hr 150 mg PO BID 03/25/22 03/25/22 sustained-release diltiazem HCl 240 mg 240 mg PO DAILY 03/25/22 03/25/22 capsule,extended release 24 hr dorzolamide 22.3 mg-timolol 6.8 1 drp ophthalmic (eye) DAILY 03/25/22 03/25/22 mg/mL eye drops finasteride 5 mg tablet 5 mg PO DAILY 03/25/22 03/25/22 omeprazole 20 mg capsule,delayed 20 mg PO DAILY 03/25/22 03/25/22 release rivaroxaban 20 mg tablet (Xarelto) 20 mg PO QPM 03/25/22 03/25/22 tamsulosin 0.4 mg capsule 0.4 mg PO BEDTIME 03/25/22 03/25/22 triamcinolone acetonide 0.1 % 1 applic topical DAILY PRN Dry Skin 03/25/22 03/25/22 topical ointment vitamin B complex (B 1 tab PO DAILY 03/25/22 03/25/22 Complex-Vitamin B12 tablet) Previous Rx's Medication Instructions Recorded gabapentin 400 mg capsule 400 mg PO TID #30 caps 05/05/22 lidocaine 5 % topical patch 1 patch topical DAILY PRN pain #30 05/05/22 ea tramadol 50 mg tablet 50 mg PO Q8H PRN pain #10 tabs 05/05/22 tramadol 50 mg tablet 50 mg PO Q8H PRN pain #10 tabs 05/26/22 Allergies Allergy/AdvReac Type Severity Reaction Status Date / Time No Known Drug Allergies Allergy Verified 05/26/22 11:32 Review of Systems Review of Systems ROS Unobtainable: All systems reviewed & are unremarkable except as noted in HPI and below Patient History Medical History BPH (benign prostatic hyperplasia) Chronic anticoagulation Osteoporosis Surgical History History of permanent cardiac pacemaker placement Family History Mother Cancer Father No problems noted. Social History household members: none and other Smoking Status: Never smoker alcohol intake: current Smoking Status: Never smoker alcohol intake frequency: 0-2 drinks per day Substance Use Type: does not use and prescription drug Exam Narrative Exam Narrative: GEN: Patient appears in mild distress. HEAD: No evidence of trauma, no raccoon/Snyder sign. NECK: Nontender, painless range of motion, trachea midline Negative Nexus criteria, there is no midline line tenderness, distracting injury, altered mental status, neuro deficit, recent EtOH. EYES: PERRLA, EOMI ENT: External inspection normal, trachea is midline, TM's are normal no hemotypanum, Nares are clear, no septal hematoma, no dental or oral injury, airway is normal and with normal occlusion, No bony tenderness, patient does have some ecchymosis of the left neck which appears old. RESP: Chest is nontender and has symmetric movement, no ecchymosis, breath sounds are normal no crackles, wheezes or rales CVS: Heart sounds are normal, no murmur noted, No JVD. ABG/GI: Nontender, soft, normal bowel sounds, no distention, no organomegaly, pelvic rock is negative NEURO: Oriented AOx3, neuro is grossly intact, sensation and motor is normal all 4 extremities moving, cranial nerves II through XII are intact, GCS is 15 PSYCH: Normal mood and affect SKIN: Intact, warm and dry, no crepitus and without decubitus BACK: No CVA tenderness, no vertebral tenderness, no step-off's, no crepitus EXT: Atraumatic, hips are nontender, patient is able to lift his left leg without much issue. He does have pain when he tries to weightbear. No pedal edema, normal color and temperature, normal range of motion of extremities with normal tendon exam, 2+ pulses in all four extremities Initial Vital Signs Initial Vital Signs: Vital Signs Temperature 97.8 F 05/26/22 11:30 Pulse Rate 72 05/26/22 11:30 Respiratory Rate 16 05/26/22 11:30 Blood Pressure 117/69 05/26/22 11:30 Pulse Oximetry 100 05/26/22 11:30 Oxygen Delivery Method Room Air 05/26/22 11:30 Course Orders Ordered: Discontinued Medications Acetaminophen (Acetaminophen 325 Mg Tablet) 975 mg PO NOW ONE Stop: 05/26/22 14:02 Last Admin: 05/26/22 14:49 Dose: 975 mg Documented By: RED Tramadol HCl (Tramadol 50 Mg Tablet) 50 mg PO NOW ONE Stop: 05/26/22 14:02 Last Admin: 05/26/22 14:49 Dose: 50 mg Documented By: RED Vital Signs Vital signs: Vital Signs - 8 hr 05/26/22 11:30 Temperature 97.8 F Pulse Rate 72 Respiratory Rate 16 Blood Pressure 117/69 Pulse Oximetry 100 Oxygen Delivery Method Room Air MDM - Fall Lab Data Labs: Lab Results 05/26/22 Range/Units 13:14 Urine Color Yellow Urine Appearance Clear Urine pH 5.5 (4.5-8.0) Ur Specific Sanderson 1.010 (1.000-1.035) Urine Protein Negative (Negative) Urine Glucose (UA) Negative (Negative) g/dL Urine Ketones Negative (NEGATIVE) Urine Occult Blood 1+ H (Negative) Urine Nitrate Negative (Negative) Urine Bilirubin Negative (NEGATIVE) Urine Urobilinogen 0.2 (0.2) E.U./dL Ur Leukocyte Esterase Negative (NEGATIVE) Urine RBC 5-10/hpf H (0-5/HPF) Urine WBC 0-1/hpf (0-5/HPF) Ur Squamous Epith Cells 0-1 /hpf (0-5/HPF) Urine Bacteria None seen (None) Ur Culture Indicated? Cult not indicated Urine Dip Bedside Urine Glucose Negative Bedside Urine Bilirubin - Negative Bedside Urine Ketone - Negative Urine Specific Sanderson 1.010 Bedside Urine Occult Blood ++ Bedside Urine pH 6.0 Bedside Urine Protein - Negative Bedside Urine Urobilinogen - Negative Bedside Urine Nitrite - Negative Bedside Urine Leukocytes - Negative Esterase Imaging Data Extremity x-ray #1: Radiologist's Impression: Celso Hu??87??M??1935 ? Allergy/Adv: No Known Drug Allergies Close Hip X-Ray (Signed) Isidoro Mckeon - 05/26/[address] (Signed) Romeo Zavala - 05/05/[address] (Signed) Romeo Zavala - 05/05/22 Echocardiogram Ultrasound (Signed) Sydney Simon - 03/25/22 Telemetry Strips 03/25/22 Telemetry Strips 03/25/22 Chest/Abdomen/Pelvis CT (Signed) Kb Gaytan - 03/25/22 Chest X-Ray (Signed) Alber Connor - 03/25/[address] (Signed) Romeo Zavala - 03/08/[address] (Signed) Romeo Zavala - 03/08/22 Launch?[address] [address] XRay Report Signed Patient: Celso Hu MR#: [id number] : 1935 Acct:[id number] Age/Sex: 87 / M Date of Service: 05/26/22 Loc: ED Accession Number: [id number] ?? Procedure: XR hip w pel if done LT 2V Ordering Provider: Chio Wayne D.O. PROCEDURE:? XR HIP W PEL IF DONE LT 2V ? INDICATIONS:? fall , left hip pain ? TECHNIQUE:? 2 views of the hip were acquired.? ? COMPARISON:? None. ? FINDINGS:? ? Bones:? No fractures or dislocations.? No suspicious bony lesions.? The visualized pelvic ring appears intact.? Mild sclerosis of the acetabulum with osteophyte formation. ? Soft tissues:? No suspicious soft tissue calcifications or masses.? ? IMPRESSION:? No fracture. Mild osteoarthritic changes of the hips. ? ? Dictated by: Isidoro Mckeon M.D. on 05/26/2022 at 11:02 ? ? Approved by: Isidoro Mckeon M.D. on 05/26/2022 at 11:03?? CT Left Lower ext: Radiologist's Impression: [place] [address] CT Scan Report Signed Patient: Celso Hu MR#: [id number] : 1935 Acct:[id number] Age/Sex: 87 / M Date of Service: 05/26/22 Loc: ED Accession Number: [id number] ?? Procedure: CT pelvis wo con Ordering Provider: Chio Wayne D.O. PROCEDURE:? CT PEL WO CON ? INDICATIONS:? left hip/upper femur pain ? TECHNIQUE:? After the administration of oral contrast, 5 mm thick sections acquired from the iliac crests to the symphysis.? 5 mm coronal and sagittal reformats were then performed.? For radiation dose reduction, the following was used:? automated exposure control, adjustment of mA and/or kV according to patient size.? ? COMPARISON:? None. ? FINDINGS:? Image quality:? Excellent.? ? Peritoneum and bowel:? Bowel loops demonstrate normal wall thickness and caliber.? No free fluid or air.? Numerous colonic diverticula. ? Genitourinary:? Bladder wall thickness is normal.? ? Nodes and vessels:? No iliac, pelvic, or inguinal adenopathy by size criteria.? Iliac vessels demonstrate normal size.? ? Bones:? No suspicious bony lesions.? Pelvic ring and hip joints appear intact.? ? Miscellaneous:? Large fat containing left inguinal hernia.? ? IMPRESSION:? 1. No fracture. 2. Colonic diverticula without evidence of acute diverticulitis.? ? Dictated by: Isidoro Mckeon M.D. on 05/26/2022 at 14:09 ? ? Approved by: Isidoro Mckeon M.D. on 05/26/2022 at 14:17?? [facility] Narrative Medical decision making narrative: This is an 87-year-old male who had ground level fall with the trip. Patient states he is had persistent left hip pain just below the greater trochanter his x-ray is negative he actually has good movement but is painful to weightbear. Patient has had multiple compression fractures in the past and this probably osteopenic so CT to rule out occult fracture was ordered. Patient did request some pain medication Tylenol and tramadol given here in the department. Patient has good range of motion while laying in bed but is quite painful to weight bare and struggle with ambulation trial. Patient family asked for wheelchair and state they will assist him at home. Discharge Plan Departure Patient Disposition: Home Clinical Impression: Acute pain of left hip Instructions: DI for Hip Pain Activity Restrictions/Additional Instructions: Please follow-up with your physician for recheck. You can borrow a bedside commode from the [facility] as long as you return it. Alternative option is the [facility] in [place]. Continue your home medications as prescribed. You may take tramadol 1 tablet every 6-8 hours as needed. This medication can make you sleepy do not drive, perform hazardous activities or make any major decisions while taking it. This medication will make you constipated please take a stool softener once to twice daily until stools are soft and regular. Prescription sent to [facility]. Prescriptions: New tramadol 50 mg tablet 50 mg PO Q8H PRN (Reason: pain) Qty: 10 0RF No Action bupropion HCl 150 mg Tablet Sustained-Release 12 Hr 150 mg PO BID diltiazem HCl 240 mg Capsule,Extended Release 24hr 240 mg PO DAILY omeprazole 20 mg Capsule,Delayed Release(Dr/Ec) 20 mg PO DAILY Xarelto 20 mg Tablet 20 mg PO QPM Rx Instructions: must administer with evening meal tamsulosin 0.4 mg Capsule 0.4 mg PO BEDTIME finasteride 5 mg Tablet 5 mg PO DAILY dorzolamide-timolol 22.3-6.8 mg/mL Drops 1 drp OPHTHALMIC (EYE) DAILY Rx Instructions: right eye Lumigan 0.01 % Drops 1 drp OPHTHALMIC (EYE) DAILY Rx Instructions: right eye triamcinolone acetonide 0.1 % Ointment 1 applic TOPICAL DAILY PRN (Reason: Dry Skin) vitamin B complex [B Complex-Vitamin B12] Tablet 1 tab PO DAILY lidocaine 5 % adhesive patch,medicated 1 patch topical DAILY PRN (Reason: pain) Qty: 30 0RF Rx Instructions: leave on most painful area for up to 12 hrs gabapentin 400 mg capsule 400 mg PO TID Qty: 30 0RF tramadol 50 mg tablet 50 mg PO Q8H PRN (Reason: pain) Qty: 10 0RF Referrals: Miscellaneous,Doctor, MD [Primary Care Provider] - Stand Alone Forms: Patient Portal/API
[2022-05-26 13:35] LABS: Appearance Urine UA CLEAR; Bilirubin Urine UA NEGATIVE (NEGATIVE); Color Urine UA YELLOW; Glucose Urine UA NEGATIVE (Negative); Ketones Urine UA NEGATIVE (NEGATIVE); Leukocyte Esterase Urine UA NEGATIVE (NEGATIVE); Nitrite Urine UA NEGATIVE (Negative); Occult Blood Urine UA 1+ (Negative); Protein Urine UA NEGATIVE (Negative); Urobilinogen Urine UA 0.2 E.U./dL (0.2); pH Urine UA 5.5 (4.5-8.0)
[2022-05-26 13:43] LABS: Bacteria Urine None Seen; Culture Indicated Urine Cult Not Indicated; RBC Urine 5-10/HPF (0-5/HPF); Squamous Epithelial Cell Urine 0-1 /HPF (0-5/HPF); WBC Urine 0-1/HPF (0-5/HPF)
--- NOTE | 2022-05-26 14:01 | DI.CT.S_ITS ---
PROCEDURE: CT PEL WO CON INDICATIONS: left hip/upper femur pain TECHNIQUE: After the administration of oral contrast, 5 mm thick sections acquired from the iliac crests to the symphysis. 5 mm coronal and sagittal reformats were then performed. For radiation dose reduction, the following was used: automated exposure control, adjustment of mA and/or kV according to patient size. COMPARISON: None. FINDINGS: Image quality: Excellent. Peritoneum and bowel: Bowel loops demonstrate normal wall thickness and caliber. No free fluid or air. Numerous colonic diverticula. Genitourinary: Bladder wall thickness is normal. Nodes and vessels: No iliac, pelvic, or inguinal adenopathy by size criteria. Iliac vessels demonstrate normal size. Bones: No suspicious bony lesions. Pelvic ring and hip joints appear intact. Miscellaneous: Large fat containing left inguinal hernia. IMPRESSION: 1. No fracture. 2. Colonic diverticula without evidence of acute diverticulitis. Dictated by: Isidoro Mckeon M.D. on 05/26/2022 at 14:09 Approved by: Isidoro Mckeon M.D. on 05/26/2022 at 14:17
[2022-05-26] MEDS: TRAMADOL 50 MG TABLET PO (14:49)
[2022-05-26] MEDS: ACETAMINOPHEN 325 MG TABLET 975 MG PO (14:49)
[2022-05-26 16:39] VITALS: BP 121/71; PULSE 74; RESP 17; O2SAT 100
== END 2022-05-26 16:40 | disposition home or self-care (01) ==
PROVIDERS: Emergency Provider Emergency Medicine
DX: M25.552 Pain in left hip (principal)
CPT/HCPCS: 72192; 73502; 81001; 81003; 99283; 99284

== ENCOUNTER → 2022-07-10 15:19 | Outpatient (CLI) | payer MEDICARE, SELFPAY ==
[2022-03-25 22:39] VITALS: BMI 22.8
--- NOTE | 2022-07-10 | DI.RAD.S_ITS ---
PROCEDURE: XR LUMBAR SPINE 2-3V INDICATIONS: Wedge compression fracture of second lumbar vertebra, subseq TECHNIQUE: 3 views of the lumbar spine were acquired. COMPARISON: [facility], CT, CT LUMBAR SPINE WO [facility], 05/05/2022, 13:39. FINDINGS: Bones: 5 [id number] vertebrae are present. Straightening of normal lumbar lordosis. 4 millimeter retrolisthesis of L1 on L2 and 8 millimeter retrolisthesis of L2 on L3 is seen. Subacute to chronic appearing anterior wedge compression deformities involving L1 through L4 vertebral bodies are again seen unchanged from prior study. There is interval up to 50 percent loss of L5 vertebral body height. Degenerative endplate changes and bilateral facet arthrosis throughout lumbar spine is seen. No suspicious bony lesions. Soft tissues: Overlying bowel gas pattern is normal. No suspicious soft tissue calcifications. IMPRESSION: 1. Stable chronic appearing compression deformities involving L1 through L4 levels. 2. Interval development of significant L5 vertebral body compression deformity with up to 50 percent loss of L5 vertebral body height. 3. Grade 1 retrolisthesis at L1-2 and L2-3 levels. Degenerative disc disease throughout lumbar spine. Dictated by: Jerson Traylor M.D. on 07/10/2022 at 17:06 Approved by: Jerson Traylor M.D. on 07/10/2022 at 17:09
== END ==
PROVIDERS: Referring Provider Internal Medicine; Visit Provider Internal Medicine
DX: S32.010D Wedge compression fracture of first lumbar vertebra, subsequent encounter for fracture with routine healing (principal); S32.020D Wedge compression fracture of second lumbar vertebra, subsequent encounter for fracture with routine healing; S32.030D Wedge compression fracture of third lumbar vertebra, subsequent encounter for fracture with routine healing; S32.040D Wedge compression fracture of fourth lumbar vertebra, subsequent encounter for fracture with routine healing; M51.36 Other intervertebral disc degeneration, lumbar region; M43.16 Spondylolisthesis, lumbar region; M43.8X6 Other specified deforming dorsopathies, lumbar region
CPT/HCPCS: 72100

== ENCOUNTER 2022-07-20 10:11 | Inpatient (IN) | payer MEDICARE, SELFPAY ==
[2022-03-25 22:39] VITALS: BMI 22.8
[2022-07-20] VITALS (26 sets, daily range): BP systolic 87–102; BP diastolic 53–68; PULSE 69–101; RESP 12–22; TEMP 36.3–37.1; O2SAT 96–99; BMI 27.3
[2022-07-20 10:28] LABS: Add Manual Diff / Slide Review NO; Basophils Absolute Auto 100 /uL (0-100); Basophils Percent Auto 1.1 % (0-2); Eosinophils Absolute Auto 100 /uL (0-450); Eosinophils Percent Auto 1.2 % (2-4); Hematocrit 35.6 % (41-53); Hemoglobin 11.8 g/dL (13.5-17.5); Lymphocytes Absolute Auto 1100 /uL (1100-4500); Mean Corpuscular HGB Conc 33.1 % (30-36); Mean Corpuscular Hemoglobin 31.3 PG (26-34); Mean Corpuscular Volume 94.6 fL (80-100); Monocytes Absolute Auto 600 /uL (0-900); Monocytes Percent Auto 8.3 % (3-14); Neutrophils Absolute Auto 5600 /uL (1500-7000); Neutrophils Percent Auto 74.4 % (50-75); Platelet Count 183 X10^3/uL (150-400); Red Blood Cell Count 3.76 X10^6/uL (4.5-5.9); Red Cell Distribution Width 16.6 % (11.6-14.8); White Blood Cell Count 7.6 X10^3/uL (4.5-11.0)
[2022-07-20 10:34] LABS: INR 1.7 (0.9-1.3)
[2022-07-20 10:37] LABS: PTT Partial Thromboplastin Tim 37 SECONDS (26-36)
[2022-07-20 10:38] LABS: Alanine Aminotransferase 28 IU/L (<50); Albumin 3.4 g/dL (3.5-5.0); Alkaline Phosphatase 87 U/L (38-126); Aspartate Aminotransferase 30 IU/L (17-59); BUN Creatinine Ratio 14.3 (6-22); Bilirubin Total 0.6 mg/dL (0.2-1.3); Blood Urea Nitrogen 15 mg/dL (9-20); Calcium 8.7 mg/dL (8.4-10.2); Carbon Dioxide 25 mmol/L (22-32); Chloride 107 mmol/L (98-107); Estimated Glomerular Filt Rate > 60 mL/min (>60); Globulin 3.4 g/dL (1.7-4.1); Glucose 136 mg/dL (80-110); HEMOLYSIS < 15 (0-50); Potassium 3.6 mmol/L (3.4-5.1); Sodium 139 mmol/L (137-145); Total Protein 6.8 g/dL (6.3-8.2)
[2022-07-20] MEDS: PANTOPRAZOLE 40 MG VIAL 80 MG IV (11:36)
--- NOTE | 2022-07-20 12:57 | ED.GIBLEED ---
HPI - GI Bleed General Chief complaint: GI Bleed Stated complaint: Possible GI bleed Time Seen by Provider: 07/20/22 12:57 Source: patient and EMS Mode of arrival: EMS Limitations: no limitations History of Present Illness HPI Narrative: 87-year-old male with history of atrial fibrillation on Xarelto and diltiazem, recent bone that had injection in significant improvement of his pain and weakness but had just been discharged from rehab for debility. Patient states last night everything was fine he had a very dark bloody stool today. He states it was more dark blood and not bright red. He denies abdominal back or flank pain. He denies any rectal pain. States he has not been having frequent diarrhea but did have stool today. He is not had similar in the past. He denies any urinary symptoms no hematuria, dysuria, urgency or frequency. Denies fevers or chills. No nausea or vomiting. He denies any lightheadedness. No chest pain or shortness of breath. Patient states he is not had GI bleeds in the past. Patient denies any surgeries he states he did have an injection for his leg pain and this significantly improved his symptoms. No tobacco, alcohol or illicit. No known drug allergies. Dr. Colmenares is his primary care physician. He has been using a walker and wheelchair intermittently and his son was picking him up from [facility] who rehab today to take him home. He notes that he has a is setting up home health care for the patient as well. Son also notes the patient has had a significant decrease in his weight loss over the past several months. Patient is open to blood transfusion. Related Data Home Medications Medication Instructions Recorded Confirmed bimatoprost 0.01 % eye drops 1 drp ophthalmic (eye) DAILY 03/25/22 03/25/22 (Lumigan) bupropion HCl 150 mg tablet,12 hr 150 mg PO BID 03/25/22 03/25/22 sustained-release diltiazem HCl 240 mg 240 mg PO DAILY 03/25/22 03/25/22 capsule,extended release 24 hr dorzolamide 22.3 mg-timolol 6.8 1 drp ophthalmic (eye) DAILY 03/25/22 03/25/22 mg/mL eye drops finasteride 5 mg tablet 5 mg PO DAILY 03/25/22 03/25/22 omeprazole 20 mg capsule,delayed 20 mg PO DAILY 03/25/22 03/25/22 release rivaroxaban 20 mg tablet (Xarelto) 20 mg PO QPM 03/25/22 03/25/22 tamsulosin 0.4 mg capsule 0.4 mg PO BEDTIME 03/25/22 03/25/22 triamcinolone acetonide 0.1 % 1 applic topical DAILY PRN Dry Skin 03/25/22 03/25/22 topical ointment vitamin B complex (B 1 tab PO DAILY 03/25/22 03/25/22 Complex-Vitamin B12 tablet) Previous Rx's Medication Instructions Recorded gabapentin 400 mg capsule 400 mg PO TID #30 caps 05/05/22 lidocaine 5 % topical patch 1 patch topical DAILY PRN pain #30 05/05/22 ea tramadol 50 mg tablet 50 mg PO Q8H PRN pain #10 tabs 05/05/22 tramadol 50 mg tablet 50 mg PO Q8H PRN pain #10 tabs 05/26/22 Allergies Allergy/AdvReac Type Severity Reaction Status Date / Time No Known Drug Allergies Allergy Verified 07/20/22 10:27 Review of Systems Review of Systems ROS Unobtainable: All systems reviewed & are unremarkable except as noted in HPI and below Patient History Medical History BPH (benign prostatic hyperplasia) Chronic anticoagulation Osteoporosis Surgical History History of permanent cardiac pacemaker placement Family History Mother Cancer Father No problems noted. Social History household members: none and other Smoking Status: Never smoker alcohol intake: current Smoking Status: Never smoker alcohol intake frequency: 0-2 drinks per day Substance Use Type: does not use Exam Narrative Exam Narrative: GENERAL: Alert and oriented x three, mild distress. HEENT: Head normocephalic, atraumatic, EOMI, pale conjunctiva. Pupils reactive, face symmetric, moist mucous membranes NECK: Supple, full range of motion CARDIOVASCULAR: Irregularly irregular rate and rhythm without murmurs, rubs or gallops. No JVD. No swelling bilateral lower extremities. RESPIRATORY: Breath sounds equal bilaterally, no wheezes rales or rhonchi. No tachypnea or accessory muscle use. ABDOMEN: Soft, nontender. Normoactive bowel sounds all 4 quadrants. No guarding or rebound, rigidity, no mass, patient has a large amount of red and black stool present on rectal exam. Positive for Hemoccult. : No CVA tenderness EXTREMITIES: Normal range of motion, no clubbing or edema. Neurovascularly intact NEUROLOGICAL: Cranial nerves II through XII grossly intact. Moving all extremities SKIN: Warm, dry, no petechiae, no rashes or lesions. Initial Vital Signs Initial Vital Signs: Vital Signs Temperature 98.7 F 07/20/22 10:21 Pulse Rate 81 07/20/22 10:21 Respiratory Rate 16 07/20/22 10:21 Blood Pressure 93/60 07/20/22 10:21 Pulse Oximetry 98 07/20/22 10:21 Oxygen Delivery Method Room Air 07/20/22 10:21 Course Orders Ordered: ED Orders 07/20/22 10:16 Complete Blood Count AUTO DIFF Stat Comprehensive Metabolic Panel Stat PTT Partial Thromboplastin Brandt Stat Prothrombin Time INR Stat 07/20/22 10:28 Type and Screen Stat 07/20/22 10:30 EKG-12 Lead Stat 07/20/22 13:24 Urine Culture Stat Urine Microscopic Stat 07/20/22 13:36 CT abdomen pelvis w con Stat 07/20/22 15:27 COVID19 -Nasal RAPID Stat Acetaminophen (Acetaminophen 325 Mg Tablet) 650 mg PO Q6H PRN PRN Reason: Fever/Mild Pain (1-3) Bupropion HCl (Bupropion Sr 150 Mg Tab) 150 mg PO BID [facility]EN[facility] Dorzolamide/Timolol (Dorzolamide/Timolol Ophth 10 Ml) 1 drops EYE-BOTH DAILY [facility]EN[facility] Finasteride (Finasteride 5 Mg Tablet) 5 mg PO DAILY [facility] Gabapentin (Gabapentin 400 Mg Capsule) 400 mg PO TID [facility]EN[facility] Sodium Chloride (Normal Saline 0.9%) 1,000 mls @ 150 mls/hr IV CONT [facility]EN[facility] Stop: 07/21/22 04:29 Last Admin: 07/20/22 16:45 Dose: 150 mls/hr Documented By: STEFANIE Ceftriaxone Sodium 1,000 mg/ (Sodium Chloride) 100 mls @ 200 mls/hr IV Q24H [facility]ENRY Stop: 07/25/22 16:29 Last Admin: 07/20/22 16:46 Dose: 200 mls/hr Documented By: STEFANIE Lidocaine (Lidocaine Patch 1 Each Adh..Patch) 1 each TOP DAILY PRN PRN Reason: pain Naloxone HCl (Naloxone 0.4 Mg/Ml Vial) 0.2 mg IV Q2MIN PRN PRN Reason: Opiate Reversal Nf - Bimatoprost ( Lumigan) 0.01 % Drops 1 drop EYE-BOTH DAILY [facility] Ondansetron HCl (Ondansetron 4 Mg/2 Ml Inj) 4 mg IV NOW PRN PRN Reason: Nausea And Vomiting Ondansetron HCl (Ondansetron 4 Mg/2 Ml Inj) 4 mg IV Q4HR [facility] Last Admin: 07/20/22 18:18 Dose: Not Given Documented By: STEFANIE Pantoprazole Sodium (Pantoprazole 40 Mg Vial) 40 mg IV BID [facility] Tamsulosin HCl (Tamsulosin 0.4 Mg Capsule) 0.4 mg PO BEDTIME [facility] Tramadol HCl (Tramadol 50 Mg Tablet) 50 mg PO Q8H PRN PRN Reason: pain Discontinued Medications Sodium Chloride (Normal Saline 0.9%) 1,000 mls @ 150 mls/hr IV CONT [facility] Last Infusion: 07/20/22 16:19 Dose: 0 mls/hr Documented By: Admin: 07/20/22 14:06 Dose: 150 mls/hr Documented By: DELFINO Pantoprazole Sodium (Pantoprazole 40 Mg Vial) 80 mg IV NOW ONE Stop: 07/20/22 10:19 Last Admin: 07/20/22 11:36 Dose: 80 mg Documented By: DELFINO Vital Signs Vital signs: Vital Signs - 8 hr 07/20/22 11:15 07/20/22 11:15 07/20/22 11:30 Pulse Rate 80 Respiratory Rate 21 Blood Pressure 92/55 L 98/57 L Pulse Oximetry 98 Oxygen Delivery Method 07/20/22 11:30 07/20/22 11:45 07/20/22 11:45 Pulse Rate 76 77 Respiratory Rate 14 15 Blood Pressure 100/66 Pulse Oximetry 97 99 Oxygen Delivery Method 07/20/22 12:00 07/20/22 12:00 07/20/22 12:15 Pulse Rate 78 Respiratory Rate 12 Blood Pressure 94/59 L 94/56 L Pulse Oximetry 99 Oxygen Delivery Method 07/20/22 12:15 07/20/22 12:30 07/20/22 12:45 Pulse Rate 74 Respiratory Rate 15 22 Blood Pressure 94/60 Pulse Oximetry 98 98 Oxygen Delivery Method 07/20/22 12:45 07/20/22 13:00 07/20/22 13:00 Pulse Rate 80 74 Respiratory Rate 18 22 Blood Pressure 89/53 L Pulse Oximetry 97 96 Oxygen Delivery Method 07/20/22 13:15 07/20/22 13:15 07/20/22 13:30 Pulse Rate 81 Respiratory Rate 21 Blood Pressure 98/56 L 100/59 L Pulse Oximetry 98 Oxygen Delivery Method 07/20/22 13:30 07/20/22 14:00 07/20/22 14:00 Pulse Rate 73 72 Respiratory Rate 16 20 Blood Pressure 91/61 Pulse Oximetry 97 97 Oxygen Delivery Method Room Air 07/20/22 14:30 07/20/22 14:36 07/20/22 14:36 Pulse Rate 69 69 Respiratory Rate 19 19 Blood Pressure 92/58 L Pulse Oximetry 97 96 Oxygen Delivery Method Room Air 07/20/22 14:45 07/20/22 14:45 07/20/22 15:00 Pulse Rate 70 76 Respiratory Rate 18 22 Blood Pressure 98/58 L Pulse Oximetry 97 98 Oxygen Delivery Method 07/20/22 15:15 07/20/22 15:15 07/20/22 15:30 Pulse Rate 69 Respiratory Rate 21 Blood Pressure 99/59 L 100/62 Pulse Oximetry 98 Oxygen Delivery Method 07/20/22 15:30 07/20/22 15:45 07/20/22 15:45 Pulse Rate 71 72 Respiratory Rate 17 20 Blood Pressure 102/68 Pulse Oximetry 96 98 Oxygen Delivery Method 07/20/22 16:00 07/20/22 16:00 Pulse Rate 69 Respiratory Rate 14 Blood Pressure 100/65 Pulse Oximetry 98 Oxygen Delivery Method MDM - GI Bleed Lab Data 07/20/22 10:16 07/20/22 10:16 Labs: Lab Results 07/20/22 07/20/22 07/20/22 Range/Units 10:16 10:16 10:16 WBC 7.6 (4.5-11.0) X10^3/uL RBC 3.76 L (4.5-5.9) X10^6/uL Hgb 11.8 L (13.5-17.5) g/dL Hct 35.6 L (41-53) % MCV 94.6 (80-100) fL MCH 31.3 (26-34) PG MCHC 33.1 (30-36) % RDW 16.6 H (11.6-14.8) % Plt Count 183 (150-400) X10^3/uL Neut % (Auto) 74.4 (50-75) % Lymph % (Auto) 15.0 L (25-40) % [place] % (Auto) 8.3 (3-14) % Eos % (Auto) 1.2 L (2-4) % Baso % (Auto) 1.1 (0-2) % Neut # (Auto) 5600 (1006-0131) /uL Lymph # (Auto) 1100 (3336-7265) /uL [place] # (Auto) 600 (0-900) /uL Eos # (Auto) 100 (0-450) /uL Baso # (Auto) 100 (0-100) /uL PT 20.0 H (10.1-12.7) SECONDS INR 1.7 H (0.9-1.3) APTT 37 H (26-36) SECONDS Sodium 139 (137-145) mmol/L Potassium 3.6 (3.4-5.1) mmol/L Chloride 107 (98-107) mmol/L Carbon Dioxide 25 (22-32) mmol/L BUN 15 (9-20) mg/dL Creatinine 1.05 (0.66-1.25) mg/dL Estimated GFR > 60 (>60) mL/min BUN/Creatinine Ratio 14.3 (6-22) Glucose 136 H (80-110) mg/dL Calcium 8.7 (8.4-10.2) mg/dL Total Bilirubin 0.6 (0.2-1.3) mg/dL AST 30 (17-59) IU/L ALT 28 (<50) IU/L Alkaline Phosphatase 87 (38-126) U/L Total Protein 6.8 (6.3-8.2) g/dL Albumin 3.4 L (3.5-5.0) g/dL Globulin 3.4 (1.7-4.1) g/dL Albumin/Globulin Ratio 1.0 (1.0-2.8) Urine RBC (0-5/HPF) Urine WBC (0-5/HPF) Ur Squamous Epith Cells (0-5/HPF) Urine Bacteria (None) Ur Culture Indicated? SARS-CoV-2 (PCR) (Negative) Blood Type Antibody Screen 07/20/22 07/20/22 07/20/22 Range/Units 10:28 13:24 15:27 WBC (4.5-11.0) X10^3/uL RBC (4.5-5.9) X10^6/uL Hgb (13.5-17.5) g/dL Hct (41-53) % MCV (80-100) fL MCH (26-34) PG MCHC (30-36) % RDW (11.6-14.8) % Plt Count (150-400) X10^3/uL Neut % (Auto) (50-75) % Lymph % (Auto) (25-40) % [place] % (Auto) (3-14) % Eos % (Auto) (2-4) % Baso % (Auto) (0-2) % Neut # (Auto) (2710-8995) /uL Lymph # (Auto) (5601-7273) /uL [place] # (Auto) (0-900) /uL Eos # (Auto) (0-450) /uL Baso # (Auto) (0-100) /uL PT (10.1-12.7) SECONDS INR (0.9-1.3) APTT (26-36) SECONDS Sodium (137-145) mmol/L Potassium (3.4-5.1) mmol/L Chloride (98-107) mmol/L Carbon Dioxide (22-32) mmol/L BUN (9-20) mg/dL Creatinine (0.66-1.25) mg/dL Estimated GFR (>60) mL/min BUN/Creatinine Ratio (6-22) Glucose (80-110) mg/dL Calcium (8.4-10.2) mg/dL Total Bilirubin (0.2-1.3) mg/dL AST (17-59) IU/L ALT (<50) IU/L Alkaline Phosphatase (38-126) U/L Total Protein (6.3-8.2) g/dL Albumin (3.5-5.0) g/dL Globulin (1.7-4.1) g/dL Albumin/Globulin Ratio (1.0-2.8) Urine RBC 0-1/hpf (0-5/HPF) Urine WBC >100/hpf H (0-5/HPF) Ur Squamous Epith Cells None seen (0-5/HPF) Urine Bacteria Many (>30) H (None) Ur Culture Indicated? Specimen cultured SARS-CoV-2 (PCR) Positive H (Negative) Blood Type B Positive Antibody Screen Negative Point of Care Testing Stool Occult Blood Positive Urine Dip Bedside Urine Glucose Negative Bedside Urine Bilirubin - Negative Bedside Urine Ketone - Negative Urine Specific [place] 1.015 Bedside Urine Occult Blood ++ Bedside Urine pH 6 Bedside Urine Protein +/- 15 Bedside Urine Urobilinogen - Negative Bedside Urine Nitrite - Negative Bedside Urine Leukocytes +++ [address] scan - abdomen/pelvis: Radiologist's Impression: Imaging Reports Close Abdomen/Pelvis CT (Signed) Jefferson Barrera - 07/20/22 Launch?[address] [address] [address] Scan Report Signed Patient: Celso Hu MR#: [id number] : 1935 Acct:[id number] Age/Sex: 87 / M Date of Service: 07/20/22 Loc: ED Accession Number: [id number] ?? Procedure: CT abdomen pelvis w con Ordering Provider: Chio Wayne D.O. PROCEDURE:? CT ABDOMEN PELVIS W CON ? INDICATIONS:? gi bleed, likely lower, weight loss ? TECHNIQUE:? After the administration of intravenous contrast, axial sections acquired from the lung bases to the pubic symphysis.? Coronal and sagittal reformats were performed.? For radiation dose reduction, the following was used:? automated exposure control, adjustment of mA and/or kV according to patient size.? ? COMPARISON:? [facility], CT, CT CHEST ABD PEL W CON, 03/25/2022, 18:44.? [facility], CT, CT PEL WO CON, 05/26/2022, 14:06. ? FINDINGS:? Image quality:? Excellent.? ? Lung bases:? Unremarkable. Heart:? No significant findings. ? ABDOMEN: Liver:? Unremarkable.? ? Gallbladder:? The gallbladder contains numerous peripherally faintly calcified gallstones, small to moderate in size.? No definite acute cholecystitis or biliary distention is associated, however.? ? Biliary ducts:? Unremarkable.? ? Pancreas:? Unremarkable.? ? Spleen:? Unremarkable.? ? Adrenal Glands:? Unremarkable.? ? Kidneys and Ureters:? Unremarkable.? ? ? Stomach and Bowel:? Stomach, small bowel loops, and colon are unremarkable.? Peritoneum:? No abnormal intraperitoneal fluid.? No free air.? ? Ventral Wall: ? No hernias.? Abdominal Nodes:? No retroperitoneal or mesenteric adenopathy by size criteria.? Vessels:? Aorta and inferior vena cava are normal in size.? ? PELVIS: Pelvic Organs:? Unremarkable.? ? Bladder:? Unremarkable.? ? Pelvic Nodes: No enlarged lymph nodes.? Miscellaneous: No hernias are seen.? ? Note is made of moderately severe descending left colonic and sigmoid colonic diverticulosis but no definite acute diverticulitis or colonic mass is found.? ? Bones:? Unremarkable.? IMPRESSION:? Numerous small to moderate-sized gallstones within the gallbladder lumen but without evidence of acute cholecystitis. ? Extensive descending colonic and sigmoid colonic diverticulosis but without definite acute diverticulitis. ? No active bleeding at time of CT scanning found, no mass lesion seen within the visualized colon. ? ? Dictated by: Jefferson Barrera M.D. on 07/20/2022 at 15:02 ? ? Approved by: Jefferson Barrera M.D. on 07/20/2022 at 15:06?? ECG Data Attestation: I personally reviewed and interpreted this ECG as follows: Prior ECG tracings: available for review Interpretation: Atrial flutter with variable AV block, occasionally ventricular paced rhythms. Right bundle. Rate of 83 QRS of 124 QTC of 434. Patient has prior EKG is not paced but otherwise no other ST segments noted. MDM Narrative Medical decision making narrative: This is a 87-year-old male who presents with potential GI bleed. Patient is hypotensive he states this is his normal blood pressure, on visits in May he was 120-117, patient's son is not sure. He notes he has lost a lot of weight. Hemoglobin is 11.8 he was 13.6 on March 26, 2022 normal platelets today normal white count but is anticoagulated on Xarelto. Creatinine is 1.05 BUN is 15, normal LFTs and electrolytes. INR is 1.7. Patient is not currently symptomatic but type and screen was ordered with plan to transfuse if needed. Patient is not tachycardic accept for initially 98-100 but is on diltiazem which might blunt his tachycardia response. Patient's family has noted a lot of weight loss and he seems a little gone so CT abdomen pelvis was obtained, shows gallstones, diverticulosis but no diverticulitis or source of bleed. Patient has dark red along with blackish discolored stool so Protonix 80 mg was ordered, gentle fluids and case discussed with Dr. Olivo, general surgery for consultation. Asks that they reach out when ready for her to scope. Dr. Pastor, hospitalist accepts for admission. He will be in contact with Dr. Olivo. Discharge Plan Departure Patient Disposition: Admitted As Inpatient Clinical Impression: GI bleed Admit Date/Time: 07/20/22 16:00 Admit Provider: Bhavik Pastor
--- NOTE | 2022-07-20 13:36 | DI.CT.S_ITS ---
PROCEDURE: CT ABDOMEN PELVIS W CON INDICATIONS: gi bleed, likely lower, weight loss TECHNIQUE: After the administration of intravenous contrast, axial sections acquired from the lung bases to the pubic symphysis. Coronal and sagittal reformats were performed. For radiation dose reduction, the following was used: automated exposure control, adjustment of mA and/or kV according to patient size. COMPARISON: [facility], CT, CT CHEST ABD PEL W CON, 03/25/2022, 18:44. [facility], CT, CT PEL WO CON, 05/26/2022, 14:06. FINDINGS: Image quality: Excellent. Lung bases: Unremarkable. Heart: No significant findings. ABDOMEN: Liver: Unremarkable. Gallbladder: The gallbladder contains numerous peripherally faintly calcified gallstones, small to moderate in size. No definite acute cholecystitis or biliary distention is associated, however. Biliary ducts: Unremarkable. Pancreas: Unremarkable. Spleen: Unremarkable. Adrenal Glands: Unremarkable. Kidneys and Ureters: Unremarkable. Stomach and Bowel: Stomach, small bowel loops, and colon are unremarkable. Peritoneum: No abnormal intraperitoneal fluid. No free air. Ventral Wall: No hernias. Abdominal Nodes: No retroperitoneal or mesenteric adenopathy by size criteria. Vessels: Aorta and inferior vena cava are normal in size. PELVIS: Pelvic Organs: Unremarkable. Bladder: Unremarkable. Pelvic Nodes: No enlarged lymph nodes. Miscellaneous: No hernias are seen. Note is made of moderately severe descending left colonic and sigmoid colonic diverticulosis but no definite acute diverticulitis or colonic mass is found. Bones: Unremarkable. IMPRESSION: Numerous small to moderate-sized gallstones within the gallbladder lumen but without evidence of acute cholecystitis. Extensive descending colonic and sigmoid colonic diverticulosis but without definite acute diverticulitis. No active bleeding at time of CT scanning found, no mass lesion seen within the visualized colon. Dictated by: Jefferson Barrera M.D. on 07/20/2022 at 15:02 Approved by: Jefferson Barrera M.D. on 07/20/2022 at 15:06
[2022-07-20] MEDS: SODIUM CHLORIDE 0.9% 1,000 ML 150 ML IV ×2 (14:06→16:45)
[2022-07-20 14:24] LABS: RBC Urine 0-1/HPF (0-5/HPF)
[2022-07-20 14:25] LABS: Bacteria Urine Many (>30); Culture Indicated Urine Specimen Cultured; Squamous Epithelial Cell Urine None Seen (0-5/HPF); WBC Urine >100/HPF (0-5/HPF)
[2022-07-20 15:51] LABS: COVID19 -Nasal RAPID POSITIVE (Negative)
[2022-07-20] MEDS: cefTRIAXone 1,000 MG in SODIUM CHLORIDE 0.9% 100 ML 200 MG IV (16:46)
--- NOTE | 2022-07-20 18:31 | PM.HP.1 ---
History of Present Illness History of Present Illness Date Patient Seen: 07/20/22 Time Patient Seen: 18:00 Chief complaint: Possible GI bleed Narrative: Celso Hu is an 87yo M [facility] PMH of A-fib on Xarelto, recent fall and vertebral fracture, BPH and pacemaker who presents from [facility] with dark maroon stools. Patient states he has never had blood in his stool before. He noticed the change in stool this morning so came to the ED. His last colonoscopy was 1 year ago and was normal. Last took his dose of Xarelto last night. He denies nausea vomiting, abdominal pain, chest pain, shortness the breath or diarrhea. In the ED patient had soft blood pressures of 99/56. Given IV fluids. Guaiac was positive. Patient found to be COVID positive. Not requiring supplemental oxygen. [facility] Medical History BPH (benign prostatic hyperplasia) Chronic anticoagulation Osteoporosis Surgical History History of permanent cardiac pacemaker placement Family History Mother Cancer Father No problems noted. Social History household members: none and other Smoking Status: Never smoker alcohol intake: current Meds Home Medications and Allergies Home Medications Medication Instructions Recorded Confirmed Type bimatoprost 0.01 % eye drops 1 drp ophthalmic (eye) DAILY 03/25/22 03/25/22 History (Evert) bupropion HCl 150 mg tablet,12 hr 150 mg PO BID 03/25/22 03/25/22 History sustained-release diltiazem HCl 240 mg 240 mg PO DAILY 03/25/22 03/25/22 History capsule,extended release 24 hr dorzolamide 22.3 mg-timolol 6.8 1 drp ophthalmic (eye) DAILY 03/25/22 03/25/22 History mg/mL eye drops finasteride 5 mg tablet 5 mg PO DAILY 03/25/22 03/25/22 History omeprazole 20 mg capsule,delayed 20 mg PO DAILY 03/25/22 03/25/22 History release rivaroxaban 20 mg tablet (Xarelto) 20 mg PO QPM 03/25/22 03/25/22 History tamsulosin 0.4 mg capsule 0.4 mg PO BEDTIME 03/25/22 03/25/22 History triamcinolone acetonide 0.1 % 1 applic topical DAILY PRN Dry Skin 03/25/22 03/25/22 History topical ointment vitamin B complex (B 1 tab PO DAILY 03/25/22 03/25/22 History Complex-Vitamin B12 tablet) gabapentin 400 mg capsule 400 mg PO TID #30 caps 05/05/22 Rx lidocaine 5 % topical patch 1 patch topical DAILY PRN pain #30 05/05/22 Rx ea tramadol 50 mg tablet 50 mg PO Q8H PRN pain #10 tabs 05/05/22 Rx tramadol 50 mg tablet 50 mg PO Q8H PRN pain #10 tabs 05/26/22 Rx Allergies Allergy/AdvReac Type Severity Reaction Status Date / Time No Known Drug Allergies Allergy Verified 07/20/22 10:27 Review of Systems Review of Systems Narrative: All other systems reviewed with the patient and are negative unless otherwise stated. Exam Vital Signs (past 8 hours): - 07/20/22 10:45 07/20/22 10:45 07/20/22 11:00 Temperature Pulse Rate 81 Respiratory Rate 13 Blood Pressure 91/53 L 87/56 L Pulse Oximetry 96 Oxygen Delivery Method Oxygen Flow Rate 07/20/22 11:00 07/20/22 11:15 07/20/22 11:15 Temperature Pulse Rate 75 80 Respiratory Rate 13 21 Blood Pressure 92/55 L Pulse Oximetry 97 98 Oxygen Delivery Method Oxygen Flow Rate 07/20/22 11:30 07/20/22 11:30 07/20/22 11:45 Temperature Pulse Rate 76 Respiratory Rate 14 Blood Pressure 98/57 L 100/66 Pulse Oximetry 97 Oxygen Delivery Method Oxygen Flow Rate 07/20/22 11:45 07/20/22 12:00 07/20/22 12:00 Temperature Pulse Rate 77 78 Respiratory Rate 15 12 Blood Pressure 94/59 L Pulse Oximetry 99 99 Oxygen Delivery Method Oxygen Flow Rate 07/20/22 12:15 07/20/22 12:15 07/20/22 12:30 Temperature Pulse Rate 74 Respiratory Rate 15 22 Blood Pressure 94/56 L Pulse Oximetry 98 98 Oxygen Delivery Method Oxygen Flow Rate 07/20/22 12:45 07/20/22 12:45 07/20/22 13:00 Temperature Pulse Rate 80 Respiratory Rate 18 Blood Pressure 94/60 89/53 L Pulse Oximetry 97 Oxygen Delivery Method Oxygen Flow Rate 07/20/22 13:00 07/20/22 13:15 07/20/22 13:15 Temperature Pulse Rate 74 81 Respiratory Rate 22 21 Blood Pressure 98/56 L Pulse Oximetry 96 98 Oxygen Delivery Method Oxygen Flow Rate 07/20/22 13:30 07/20/22 13:30 07/20/22 14:00 Temperature Pulse Rate 73 Respiratory Rate 16 Blood Pressure 100/59 L 91/61 Pulse Oximetry 97 Oxygen Delivery Method Room Air Oxygen Flow Rate 07/20/22 14:00 07/20/22 14:30 07/20/22 14:36 Temperature Pulse Rate 72 69 Respiratory Rate 20 19 Blood Pressure 92/58 L Pulse Oximetry 97 97 Oxygen Delivery Method Room Air Oxygen Flow Rate 07/20/22 14:36 07/20/22 14:45 07/20/22 14:45 Temperature Pulse Rate 69 70 Respiratory Rate 19 18 Blood Pressure 98/58 L Pulse Oximetry 96 97 Oxygen Delivery Method Oxygen Flow Rate 07/20/22 15:00 07/20/22 15:15 07/20/22 15:15 Temperature Pulse Rate 76 69 Respiratory Rate 22 21 Blood Pressure 99/59 L Pulse Oximetry 98 98 Oxygen Delivery Method Oxygen Flow Rate 07/20/22 15:30 07/20/22 15:30 07/20/22 15:45 Temperature Pulse Rate 71 Respiratory Rate 17 Blood Pressure 100/62 102/68 Pulse Oximetry 96 Oxygen Delivery Method Oxygen Flow Rate 07/20/22 15:45 07/20/22 16:00 07/20/22 16:00 Temperature Pulse Rate 72 69 Respiratory Rate 20 14 Blood Pressure 100/65 Pulse Oximetry 98 98 Oxygen Delivery Method Oxygen Flow Rate 07/20/22 16:30 Temperature 98 F Pulse Rate 77 Respiratory Rate 18 Blood Pressure 101/68 Pulse Oximetry 99 Oxygen Delivery Method Oxygen Flow Rate 0 Oxygen Delivery Method Room Air Oxygen Flow Rate 0 Narrative Exam Narrative: GEN: no acute distress HEENT: moist mucous membranes, PERRL NECK: trachea midline, no JVD CV: regular rate and rhythm, no murmurs PULM: clear bilaterally ABD: soft, nontender, nondistended, no organomegaly EXT: warm and well perfused with no edema NEURO: awake, alert, oriented, no focal deficits Objective Labs 07/20/22 10:16 07/20/22 10:16 Labs: Laboratory Results - last 24 hr 07/20/22 07/20/22 07/20/22 10:16 10:16 10:16 WBC 7.6 RBC 3.76 L Hgb 11.8 L Hct 35.6 L MCV 94.6 MCH 31.3 MCHC 33.1 RDW 16.6 H Plt Count 183 Neut % (Auto) 74.4 Lymph % (Auto) 15.0 L [place] % (Auto) 8.3 Eos % (Auto) 1.2 L Baso % (Auto) 1.1 Neut # (Auto) 5600 Lymph # (Auto) 1100 Weber # (Auto) 600 Eos # (Auto) 100 Baso # (Auto) 100 PT 20.0 H INR 1.7 H APTT 37 H Sodium 139 Potassium 3.6 Chloride 107 Carbon Dioxide 25 BUN 15 Creatinine 1.05 Estimated GFR > 60 BUN/Creatinine Ratio 14.3 Glucose 136 H Calcium 8.7 Total Bilirubin 0.6 AST 30 ALT 28 Alkaline Phosphatase 87 Total Protein 6.8 Albumin 3.4 L Globulin 3.4 Albumin/Globulin Ratio 1.0 Urine RBC Urine WBC Ur Squamous Epith Cells Urine Bacteria Ur Culture Indicated? SARS-CoV-2 (PCR) Blood Type Antibody Screen 07/20/22 07/20/22 07/20/22 10:28 13:24 15:27 WBC RBC Hgb Hct MCV MCH MCHC RDW Plt Count Neut % (Auto) Lymph % (Auto) [place] % (Auto) Eos % (Auto) Baso % (Auto) Neut # (Auto) Lymph # (Auto) Weber # (Auto) Eos # (Auto) Baso # (Auto) PT INR APTT Sodium Potassium Chloride Carbon Dioxide BUN Creatinine Estimated GFR BUN/Creatinine Ratio Glucose Calcium Total Bilirubin AST ALT Alkaline Phosphatase Total Protein Albumin Globulin Albumin/Globulin Ratio Urine RBC 0-1/hpf Urine WBC >100/hpf H Ur Squamous Epith Cells None seen Urine Bacteria Many (>30) H Ur Culture Indicated? Specimen cultured SARS-CoV-2 (PCR) Positive H Blood Type B Positive Antibody Screen Negative Assessment & Plan Assessment & Plan narrative: # acute GI bleed -patient had maroon stools this morning, currently hemoglobin 11.8 with previous 13.6 about 4 months ago -jevonac-positive in ED -holding home Xarelto -Dr. Olivo general surgery consulted who will perform EGD on 07/21 -NPO at midnight -PPI IV b.i.d. -clear liquid diet for now -monitor hemoglobin, transfuse Hgb <7 # COVID positive -asymptomatic so will not treat # hypotension -BP soft at 90s over 50s -holding home diltiazem -IVF # paroxysmal atrial fibrillation with pacemaker -holding home Xarelto -hold home diltiazem for now # BPH -continue home Flomax and finasteride # depression -continue home Wellbutrin Code status is DNR. COVID positive. DVT prophylaxis with SCDs. Proxy is friend Dev. I have reviewed home meds and used all available resources to reconcile the home meds. This patient will be admitted as observation and will require less than 2 midnights of hospital time to treat GI bleed.
--- NOTE | 2022-07-20 18:50 | PC.NURSE ---
Pt is A&OX4, CHALKYITSIK, VSS, afebrile on RA. He denies pain or nausea. He reports he hasn't been mobile except to stand and transfer to /. He is oriented to room and unit routines. He is evaluated by this evening and cleared for clear liquid diet. No s/sx of active bleeding/ bloody stools this evening. IVF NS @150ml/hr. Droplet precautions, call light in reach, and bed alarm on. Continuous monitoring. Plan for NPO after Midnight for endoscopy tomorrow.
[2022-07-20] MEDS: TAMSULOSIN 0.4 MG CAPSULE PO (21:55)
[2022-07-20] MEDS: TRAMADOL 50 MG TABLET PO (21:55)
[2022-07-20] MEDS: ONDANSETRON 4 MG/2 ML INJ IV (21:55)
[2022-07-20] MEDS: PANTOPRAZOLE 40 MG VIAL IV (21:55)
[2022-07-20] MEDS: GABAPENTIN 400 MG CAPSULE PO (21:55)
[2022-07-20] MEDS: buPROPion SR 150 MG TAB PO (21:58)
[2022-07-21] VITALS: BP 90/56; PULSE 76; RESP 18; TEMP 36.3; O2SAT 96
[2022-07-21 04:19] VITALS: BP 97/57; PULSE 80; RESP 18; TEMP 36.2; O2SAT 97
[2022-07-21 06:30] LABS: Add Manual Diff / Slide Review NO; Basophils Absolute Auto 100 /uL (0-100); Eosinophils Absolute Auto 100 /uL (0-450); Eosinophils Percent Auto 2.4 % (2-4); Hematocrit 28.2 % (41-53); Hemoglobin 9.4 g/dL (13.5-17.5); Lymphocytes Absolute Auto 1500 /uL (1100-4500); Mean Corpuscular HGB Conc 33.5 % (30-36); Mean Corpuscular Hemoglobin 31.7 PG (26-34); Mean Corpuscular Volume 94.7 fL (80-100); Monocytes Absolute Auto 700 /uL (0-900); Monocytes Percent Auto 11.9 % (3-14); Neutrophils Absolute Auto 3300 /uL (1500-7000); Neutrophils Percent Auto 57.7 % (50-75); Platelet Count 150 X10^3/uL (150-400); Red Blood Cell Count 2.98 X10^6/uL (4.5-5.9); Red Cell Distribution Width 16.3 % (11.6-14.8); White Blood Cell Count 5.7 X10^3/uL (4.5-11.0)
[2022-07-21 06:43] LABS: BUN Creatinine Ratio 14.8 (6-22); Blood Urea Nitrogen 13 mg/dL (9-20); Calcium 7.9 mg/dL (8.4-10.2); Carbon Dioxide 23 mmol/L (22-32); Chloride 111 mmol/L (98-107); Estimated Glomerular Filt Rate > 60 mL/min (>60); Glucose 62 mg/dL (80-110); HEMOLYSIS < 15 (0-50); Potassium 3.6 mmol/L (3.4-5.1); Sodium 140 mmol/L (137-145)
[2022-07-21 08:08] VITALS: BP 90/58; PULSE 77; RESP 16; O2SAT 99
--- NOTE | 2022-07-21 08:52 | PM.CN ---
History of Present Illness Consult details Date Patient Seen: 07/21/22 Time Patient Seen: 08:52 Chief complaint: Possible GI bleed Reason for consult: upper GI bleed +anticoag Requesting provider: Chio Wayne Narrative: Having large dark stools, dizziness, on anticoagulation. NO abd pain. Meds Home Medications and Allergies Home Medications Medication Instructions Recorded Confirmed Type bimatoprost 0.01 % eye drops 1 drp ophthalmic (eye) DAILY 03/25/22 03/25/22 History ([place]umigan) bupropion HCl 150 mg tablet,12 hr 150 mg PO BID 03/25/22 03/25/22 History sustained-release diltiazem HCl 240 mg 240 mg PO DAILY 03/25/22 03/25/22 History capsule,extended release 24 hr dorzolamide 22.3 mg-timolol 6.8 1 drp ophthalmic (eye) DAILY 03/25/22 03/25/22 History mg/mL eye drops finasteride 5 mg tablet 5 mg PO DAILY 03/25/22 03/25/22 History omeprazole 20 mg capsule,delayed 20 mg PO DAILY 03/25/22 03/25/22 History release rivaroxaban 20 mg tablet (Xarelto) 20 mg PO QPM 03/25/22 03/25/22 History tamsulosin 0.4 mg capsule 0.4 mg PO BEDTIME 03/25/22 03/25/22 History triamcinolone acetonide 0.1 % 1 applic topical DAILY PRN Dry Skin 03/25/22 03/25/22 History topical ointment vitamin B complex (B 1 tab PO DAILY 03/25/22 03/25/22 History Complex-Vitamin B12 tablet) gabapentin 400 mg capsule 400 mg PO TID #30 caps 05/05/22 Rx lidocaine 5 % topical patch 1 patch topical DAILY PRN pain #30 05/05/22 Rx ea tramadol 50 mg tablet 50 mg PO Q8H PRN pain #10 tabs 05/05/22 Rx tramadol 50 mg tablet 50 mg PO Q8H PRN pain #10 tabs 05/26/22 Rx Allergies Allergy/AdvReac Type Severity Reaction Status Date / Time No Known Drug Allergies Allergy Verified 07/20/22 10:27 Review of Systems Review of Systems ROS: Yes All systems reviewed with the patient and are negative except as otherwise documented Exam Vital Signs (past 8 hours): - 07/21/22 04:19 07/21/22 08:08 Temperature 97.2 F L Pulse Rate 80 77 Respiratory Rate 18 16 Blood Pressure 97/57 L 90/58 L Pulse Oximetry 97 99 Oxygen Flow Rate 0 0 Oxygen Delivery Method Room Air Oxygen Flow Rate 0 Const General: cooperative Nutritional Appearance: average body habitus [facility] Head: normocephalic and atraumatic Eyes Sclera: sclerae normal Neck Neck: trachea midline Resp Effort & Inspection: normal respiratory effort and able to speak in complete sentences GI Palpation: soft Psych Mental Status: mental status grossly normal Judgment: fair Objective Labs 07/21/22 05:50 07/21/22 05:50 Labs: Laboratory Results - last 24 hr 07/20/22 07/20/22 07/20/22 10:16 10:16 10:16 WBC 7.6 RBC 3.76 L Hgb 11.8 L Hct 35.6 L MCV 94.6 MCH 31.3 MCHC 33.1 RDW 16.6 H Plt Count 183 Neut % (Auto) 74.4 Lymph % (Auto) 15.0 L [place] % (Auto) 8.3 Eos % (Auto) 1.2 L Baso % (Auto) 1.1 Neut # (Auto) 5600 Lymph # (Auto) 1100 [place] # (Auto) 600 Eos # (Auto) 100 Baso # (Auto) 100 PT 20.0 H INR 1.7 H APTT 37 H Sodium 139 Potassium 3.6 Chloride 107 Carbon Dioxide 25 BUN 15 Creatinine 1.05 Estimated GFR > 60 BUN/Creatinine Ratio 14.3 Glucose 136 H Calcium 8.7 Total Bilirubin 0.6 AST 30 ALT 28 Alkaline Phosphatase 87 Total Protein 6.8 Albumin 3.4 L Globulin 3.4 Albumin/Globulin Ratio 1.0 Urine RBC Urine WBC Ur Squamous Epith Cells Urine Bacteria Ur Culture Indicated? SARS-CoV-2 (PCR) Blood Type Antibody Screen 07/20/22 07/20/22 07/20/22 10:28 13:24 15:27 WBC RBC Hgb Hct MCV MCH MCHC RDW Plt Count Neut % (Auto) Lymph % (Auto) [place] % (Auto) Eos % (Auto) Baso % (Auto) Neut # (Auto) Lymph # (Auto) [place] # (Auto) Eos # (Auto) Baso # (Auto) PT INR APTT Sodium Potassium Chloride Carbon Dioxide BUN Creatinine Estimated GFR BUN/Creatinine Ratio Glucose Calcium Total Bilirubin AST ALT Alkaline Phosphatase Total Protein Albumin Globulin Albumin/Globulin Ratio Urine RBC 0-1/hpf Urine WBC >100/hpf H Ur Squamous Epith Cells None seen Urine Bacteria Many (>30) H Ur Culture Indicated? Specimen cultured SARS-CoV-2 (PCR) Positive H Blood Type B Positive Antibody Screen Negative 07/21/22 07/21/22 05:50 05:50 WBC 5.7 RBC 2.98 L Hgb 9.4 L Hct 28.2 L MCV 94.7 MCH 31.7 MCHC 33.5 RDW 16.3 H Plt Count 150 Neut % (Auto) 57.7 Lymph % (Auto) 26.0 [place] % (Auto) 11.9 Eos % (Auto) 2.4 Baso % (Auto) 2.0 Neut # (Auto) 3300 Lymph # (Auto) 1500 [place] # (Auto) 700 Eos # (Auto) 100 Baso # (Auto) 100 PT INR APTT Sodium 140 Potassium 3.6 Chloride 111 H Carbon Dioxide 23 BUN 13 Creatinine 0.88 Estimated GFR > 60 BUN/Creatinine Ratio 14.8 Glucose 62 L Calcium 7.9 L Total Bilirubin AST ALT Alkaline Phosphatase Total Protein Albumin Globulin Albumin/Globulin Ratio Urine RBC Urine WBC Ur Squamous Epith Cells Urine Bacteria Ur Culture Indicated? SARS-CoV-2 (PCR) Blood Type Antibody Screen [facility] Medical History BPH (benign prostatic hyperplasia) Chronic anticoagulation Osteoporosis Surgical History History of permanent cardiac pacemaker placement Family History Mother Cancer Father No problems noted. Social History household members: none and other Tobacco & Substance Use Smoking Status: Never smoker alcohol intake: current Assessment & Plan Assessment & Plan narrative: Likely upper GI bleeding on Xarelto. with hypotension. Plan: EGD today with outpatient colonoscopy if bleeding source not found. Hold Xarelto. Was transfused last evening. COVID-19 COVID-19 status: Positive Time Spent With Patient Time with patient: less than 30 minutes
--- NOTE | 2022-07-21 09:09 | PM.OP.EGD ---
Operative Date/Time/Diagnoses Date of procedure: 07/21/22 Time of procedure: 09:09 Pre-op diagnosis: GI bleed Post-op diagnosis: same Procedure & Clinicians Study performed: EGD Same procedure as scheduled: Yes Indications: GI bleed Surgeon: Kyra Olivo Procedure Notes Procedure in detail: Preop diagnosis: GI bleed, on Xarelto Postop diagnosis: Same Operative procedure: EGD with general anesthetic Surgeon: Natalia Olivo MD Findings: No active bleeding source identified. No ulcerations. One small erosion within the body of the stomach. And small multiple superficial telangiectasias within the stomach itself. Procedure: Patient placed in a supine position. Anesthetic was provided. Scope was inserted into the esophagus advanced to the stomach and I insufflated to identified the pylorus. Duodenum was intubated. Insufflation extraction of the scope including retroflex had the above findings. Single small erosion. No ulcerations. No significant gastritis. But multiple small telangiectasias within the stomach itself. No active bleeding was identified either. Impression: 1 small erosion hard to say that that is the source of yesterday's dark stools and hypotension. No significant gastritis or ulcer disease. There are small multiple telangiectasias within the stomach itself which might be a contraindication for anticoagulation alone. Plan: Recommend outpatient colonoscopy. Would not recommend restarting anticoagulation at this time. Findings: other findings (Single small erosion in the stomach. No gastritis, no overt ulcers. Multiple small telangiectasias within the gastric mucosa) Specimen(s): none sent Complications: none Post-procedure Recommendations: Other recommendation(s) (Given the small superficial telangiectasias of the mucosa of the stomach I hesitate to have this man on Xarelto. Recommend outpatient colonoscopy for complete list. Or colonoscopy this hospital stay once he has been off Xarelto for 3 days) Follow up: weeks Disposition: PACU
--- NOTE | 2022-07-21 09:51 | SUR.PHASEI ---
Patient transferred directly back to inpatient room 223 due to COVID positive status. VSS. No distress noted. Report given to inpatient nurse.
--- NOTE | 2022-07-21 12:15 | PT.IIE ---
Current Diagnoses Gastrointestinal hemorrhage, unspecified (07/20/22) Surgery Performed Operation Date: 07/21/22 09:00 Actual Procedures p Esophagogastroduodenoscopy(Not Applicable) - Kyra Olivo MD Surgical History (Last Reviewed 07/21/22 @ 08:54 by Kyra Olivo MD) History of permanent cardiac pacemaker placement Medical History (Last Reviewed 07/21/22 @ 08:54 by Kyra Olivo MD) BPH (benign prostatic hyperplasia) Chronic anticoagulation Osteoporosis Physical Therapy Inpatient Evaluation/Re-Eval M1 PT/OT-IP Prior Functional Status Start: 07/21/22 14:20 Freq: NEEDED Status: Active Protocol: Document 07/21/22 12:15 AB (Rec: 07/21/22 14:36 AB [email or web address]) Medical Review Prior Functional Status Medical History Reviewed Yes Communication able to make needs known; OMAHA and with slight confusion Mobility and Gait pt stated that he is modified independent with all mobilities and ambulation using 4WW; confirmed that he were at [facility] prior to hospital admission Prior Functional Level (Other details) pt stated that he had LBP and went to [facility] because of this. Social History Household Members none,other Living Arrangements House Number of Floors (Floors) One Floor Number of Stairs To Enter/Railing? 3 steps B rails to enter Home Environment Standard Height Toilet,Walk in Shower Home Equipment Four Wheel Walker,Shower Seat with Backrest,Hand Held Shower ,Grab Bars Near Toilet,Grab Bars In Shower Additional Social History Comment pt stated that he lives by himself but has friends that can assist him but was at [facility] prior to hospital admission M2 PT-IP Current Condition Start: 07/21/22 14:20 Freq: NEEDED Status: Active Protocol: Document 07/21/22 12:15 AB (Rec: 07/21/22 14:36 AB [id number]) Physical Therapy Current Condition Current Condition Evaluation Date 07/21/22 Treatment Diagnosis GI bleed; Covid +; difficulty in walking Onset Date 07/20/22 M3 PT-IP Subjective Start: 07/21/22 14:20 Freq: NEEDED Status: Active Protocol: Document 07/21/22 12:15 AB (Rec: 07/21/22 14:36 AB [email or web address]) Subjective Physical Therapy Visit Type Type Initial Evaluation Visit Start Time 12:15 Visit Stop Time 12:55 Total Visit Minutes 40 Number of PAMPH[employer] Visits 0 Physical Therapy Visit Comments Patient Comments agreeable to get up M4 PT-IP Mobility and Gait Start: 07/21/22 14:20 Freq: NEEDED Status: Active Protocol: Document 07/21/22 12:15 AB (Rec: 07/21/22 14:36 AB [email or web address]) PT-Bed Mobility Assessment Supine to Sit Supine to Sit Minimal Assistance,Bedrails PT-Transfer Assessment Sit to and From Stand Sit to and from Stand Maximum Assistance,1 Person Assistance,2 Person Assistance ,Use of Upper Extremities Equipment Transfer Assistive Device Gait Belt,Front Wheeled Walker Orthotic/Prosthetic Devices or Brace: No Transfers Transfer Destination Chair Transfer Technique Stand Step Pivot Transfer Ability Level of Assist Maximum Assistance,1 Person Assistance,2 Person Assistance ,Use of Upper Extremities Comments Mobility Comments BP: 117/70. completed supine to sit min A and max cues. pt used bed rail to assist. able to sit on EOB CGA. no c/o dizziness. completed sit to stand max A x 1-2 and max cues . B E needs to be blocked and support R>L to prevent from sliding as pt tends to push posteriorly. increase lateral trunk leaning to the L requiring max A for standing balance. instructed pt to sit back on EOB. educated pt regarding leaning forward and maintaining balance. Attempted sit to stand again max Ax 1-2 and max cues. pt requiring max A x 1-2 and was very unsteady with increase LOB and needing to sit back down. educated pt again and to use FWW with BUE for support. completed sit to stand max A x 1-2 and max cues and step transfer to chair max A x 1-2 and max cues. needing assist to weight shift to be able to move LE and for steadiness. pt also demonstrated R foot drop. positioned pt on the chair. set up for lunch. chair alarm on. informed nurse regarding pt's mobility assistance. Gait Assessment Comments Gait Comments unable at this time PT-Balance Assessment Sitting Balance and Reactions Static Sitting Balance Ability Fair Dynamic Sitting Balance Ability Fair Standing Balance and Reactions Static Standing Balance Ability Poor Dynamic Standing Balance Ability Poor Device Used FWW M5 PT-IP Objective Assessments Start: 07/21/22 14:20 Freq: NEEDED Status: Active Protocol: Document 07/21/22 12:15 AB (Rec: 07/21/22 14:36 AB [email or web address]) Orientation Orientation/Cognition Level of Alertness Confusional State Orientation Name Language Function Ability Hard of Hearing Safety Awareness Decreased Safety Awareness Memory Description Short Term Impaired,Alf Impaired Gross Range of Motion Lower Extremity ROM Assessment Within Functional Limits Strength Lower Extremity Strength Assessment Bilaterally Impaired Comments Strength Comments RLE: 3+/5 : R foot drop LLE: 4-/5 Muscle Tone Muscle Tone WNL Yes M6 PT-IP Treatment Start: 07/21/22 14:20 Freq: NEEDED Status: Active Protocol: Document 07/21/22 12:15 AB (Rec: 07/21/22 14:36 AB [email or web address]) Physical Therapy Treatment Education Education Provided Safety M7 PT-IP Assessment and Plan Start: 07/21/22 14:20 Freq: NEEDED Status: Active Protocol: Document 07/21/22 12:15 AB (Rec: 07/21/22 14:36 AB [email or web address]) PT Summary Assessment and Plan Potential Rehabilitation Potential Fair Status of Condition at Evaluation Evolving Summary Impairments Pain,ROM,Strength,Balance, Coordination,Sensation,Tone, Cognition,Bed Mobility, Transfers,Gait,Activity Tolerance Assessment Summary pt admitted for GI bleed. pt was staying at [facility] prior to hospitalization due to LBP. pt currently requiring max A x 1-2 for sit to stand and transfers using FWW. Recommending 2 person max A transfers only using FWW with nursing staff at this time. pt also has difficulty following directions affecting mobility and safety. Pt will require SNF rehab. Goals Bed Mobility Goal Standby Assistance Transfer Goal Minimal Assistance,Front Wheeled Walker Gait Goal Minimal Assistance,Front Wheel Walker Gait Distance 50 Other Goals improve transfers and ambulation SBA using FWW 100 ft Days to Meet Goals 10 Frequency of Treatment Frequency Of Treatment Once a Day Treatment Plan Physical Therapy Treatment Plan Bed Mobility Training,Transfer Training,Gait Training, Therapeutic Exercise,Balance Retraining,Discharge Planning, Hot or Cold Pack,Neuromuscular Re-ed,Coordination Retraining ,Manual Therapy Precautions Other Precautions falls Recommendations To Nursing Amount of Assist Needed 2 Person Assist Discharge Recommendations PT Discharge Recommendations SNF Rehab Transportation Needs at Discharge Wheelchair/Cabulance
--- NOTE | 2022-07-21 15:27 | P.DS_ITS ---
History of Present Illness History of Present Illness Date Patient Seen: 07/21/22 Chief complaint: Possible GI bleed Discharge Providers Provider Date of admission: 07/20/22 16:00 Discharge Date: 07/21/22 Primary care physician: Doctor Alicia MD Consults: 07/20/22 16:27 Consult to General Surgery Routine Comment: Consulting Provider: Kyra Olivo Reason for consultation: GIB Has provider been notified: Yes 07/20/22 18:32 Consult to Occupational Therapy Evaluate & Treat Comment: Physician Instructions: Evaluate and treat Consult to Physical Therapy Evaluate & Treat Comment: Physician Instructions: Evaluate and Treat 07/20/22 18:50 Consult to Dietitian, Adult Routine Comment: Reason For Exam: weight loss, low josh score Discharge provider: Kati Cole MD Summary Hospital Course Discharge Diagnosis: Acute GI bleed Small multiple 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 Patient stated he had never had blood in his stool before. He noticed the change in stool on morning morning of presentation. His last colonoscopy was 1 year ago and was normal.? Last took his dose of the night prior to presentation. He denied nausea vomiting, abdominal pain, chest pain, shortness the breath or diarrhea. In the ED patient had soft blood pressures of 99/56.? Given IV fluids.? Guaiac was positive.? Patient found to be COVID positive and this had been documented as COVID positive on July 06, 2022 at [facility] as well.? Not requiring supp lemental oxygen. The Xarelto was held and the patient had general surgery with a EGD performed on July 21, 2022. EGD found telangiectasia in the stomach as well as an erosion in the stomach. On discharge the patient's Xarelto has been held and the patient was placed on pantoprazole 40 mg b.i.d. follow-up with his primary care provider will determine how long the pantoprazole needs to stay at b.i.d. and when the Xarelto needs to be reinitiated. General surgery is recommending a colonoscopy at some time as well. Status at Discharge Cognitive/behavioral status at discharge: oriented Functional status at discharge: independent ambulation Overall status at discharge: patient is back to baseline Time Spent with Patient Time spent: Greater than 30 minutes Exam Vital Signs (past 8 hours): - 07/21/22 08:08 Pulse Rate 77 Respiratory Rate 16 Blood Pressure 90/58 L Pulse Oximetry 99 Oxygen Flow Rate 0 Oxygen Delivery Method Room Air Oxygen Flow Rate 0 Narrative Exam Narrative: GEN: no acute distress HEENT: moist mucous membranes, PERRL NECK: trachea midline, no JVD CV: regular rate and rhythm, no murmurs PULM: clear bilaterally ABD: soft, nontender, nondistended, no organomegaly EXT: warm and well perfused with no edema NEURO: awake, alert, oriented, no focal deficits Objective Labs 07/21/22 05:50 07/21/22 05:50 Labs: Laboratory Results - last 24 hr 07/20/22 07/21/22 07/21/22 15:27 05:50 05:50 WBC 5.7 RBC 2.98 L Hgb 9.4 L Hct 28.2 L MCV 94.7 MCH 31.7 MCHC 33.5 RDW 16.3 H Plt Count 150 Neut % (Auto) 57.7 Lymph % (Auto) 26.0 [place] % (Auto) 11.9 Eos % (Auto) 2.4 Baso % (Auto) 2.0 Neut # (Auto) 3300 Lymph # (Auto) 1500 [place] # (Auto) 700 Eos # (Auto) 100 Baso # (Auto) 100 Sodium 140 Potassium 3.6 Chloride 111 H Carbon Dioxide 23 BUN 13 Creatinine 0.88 Estimated GFR > 60 BUN/Creatinine Ratio 14.8 Glucose 62 L Calcium 7.9 L SARS-CoV-2 (PCR) Positive H PFSH Medical History BPH (benign prostatic hyperplasia) Chronic anticoagulation Osteoporosis Surgical History History of permanent cardiac pacemaker placement Family History Mother Cancer Father No problems noted. Social History household members: none and other Smoking Status: Never smoker alcohol intake: current Discharge Plan Discharge Plan Patient Disposition: Home Discharge orders & Medications Prescriptions: New pantoprazole 40 mg Tablet,Delayed Release (Dr/Ec) 40 mg PO 0700,2100 Qty: 60 0RF Continued tramadol 50 mg tablet 50 mg PO Q8H PRN (Reason: pain) Qty: 10 0RF bupropion HCl 150 mg Tablet Sustained-Release 12 Hr 150 mg PO BID diltiazem HCl 240 mg Capsule,Extended Release 24hr 240 mg PO DAILY omeprazole 20 mg Capsule,Delayed Release(Dr/Ec) 20 mg PO DAILY tamsulosin 0.4 mg Capsule 0.4 mg PO BEDTIME finasteride 5 mg Tablet 5 mg PO DAILY dorzolamide-timolol 22.3-6.8 mg/mL Drops 1 drp OPHTHALMIC (EYE) DAILY Rx Instructions: right eye Lum[place] 0.01 % Drops 1 drp OPHTHALMIC (EYE) DAILY Rx Instructions: right eye triamcinolone acetonide 0.1 % Ointment 1 applic TOPICAL DAILY PRN (Reason: Dry Skin) vitamin B complex [B Complex-Vitamin B12] Tablet 1 tab PO DAILY lidocaine 5 % adhesive patch,medicated 1 patch topical DAILY PRN (Reason: pain) Qty: 30 0RF Rx Instructions: leave on most painful area for up to 12 hrs gabapentin 400 mg capsule 400 mg PO TID Qty: 30 0RF tramadol 50 mg tablet 50 mg PO Q8H PRN (Reason: pain) Qty: 10 0RF Discontinued Xarelto 20 mg Tablet 20 mg PO QPM Rx Instructions: must administer with evening meal Follow up/Referrals: Doctor Alicia, [Primary Care Provider] - Visit Report/Discharge Packet Stand Alone Forms: Patient Portal/API, Stroke Signs & Symptoms Discharge Data Primary Care Provider: Doctor Alicia Quality VTE Deep Vein Thrombosis/Pulmonary Embolism Present on Admission: No
[2022-07-21] MEDS: PANTOPRAZOLE DR 40 MG TABLET PO (16:07)
--- NOTE | 2022-07-21 17:41 | PC.NURSE ---
Pt A&Ox4, VSS. IV removed with no complications. Discharge information reviewed with patient, patient able to teach back information independently. Pt transferred into wheelchair and escorted downstairs by [employer] BRICK and RN, then discharged home with ride from son.
== END 2022-07-21 17:44 | disposition home or self-care (01) | DRG 377 ==
LOC: ED 15:34 → AC 16:01
PROVIDERS: Surgery; Admitting Provider Student in an Organized Health Care Education/Training Program; Emergency Provider Emergency Medicine; Referring Provider Emergency Medicine; Visit Provider Student in an Organized Health Care Education/Training Program
PROC: 0DJ08ZZ Inspection of Upper Intestinal Tract, Via Natural or Artificial Opening Endoscopic (ICD-10-PCS; CPT 43235; principal; 2022-07-21 09:00)
DX: K92.2 Gastrointestinal hemorrhage, unspecified (principal); U07.1 COVID-19; N39.0 Urinary tract infection, site not specified; I78.1 Nevus, non-neoplastic; I95.9 Hypotension, unspecified; I48.0 Paroxysmal atrial fibrillation; N40.0 Benign prostatic hyperplasia without lower urinary tract symptoms; F32.A Depression, unspecified; Z79.01 Long term (current) use of anticoagulants; Z95.0 Presence of cardiac pacemaker
CPT/HCPCS: 36415; 43235; 74177; 80048; 80053; 81003; 81015; 82272; 85025; 85610; 85730; 86850; 86900; 86901; 87077; 87086; 87186; 87635; 93005; 96374; 97162; 97530; 99231; 99284; C9803; C9113; J0696; J2405; J2704; Q9967